=== PATIENT | female | born 1940 | race Caucasian/White ===

== ENCOUNTER → 2016-12-20 | Outpatient (CLI) | payer OTHER, BC ==
[~2016-12-20] MED LIST: ALPH50CA2 PO; AMOX875T PO; ASCO10003 PO; ASPI81TA28 PO; B-CO1CAP17 PO; CHOL1000 PO; COEN1CAP17 PO; CRDCD180 PO; ELQ25 PO; HORMONES; MAGN30TA4 PO; OMEG10007 PO; POTASSIUM OTC PO; PRMVC PV; THY/60 PO; THY30 PO; VITACAP38 PO; VITAMINS; VITATAB19 PO
== END | disposition home or self-care (01) ==
LOC: C.LAB1850 09:41
PROVIDERS: ATTEND Family Medicine
DX: E03.9 Hypothyroidism, unspecified (principal)

== ENCOUNTER 2017-01-14 08:21 | Emergency (ER) | payer OTHER, BC ==
[~2017-01-14] VITALS: Ht 162.6 cm; Wt 79.3 kg
[~2017-01-14 08:21] MED LIST changes: -ALPH50CA2 PO; -AMOX875T PO; -ASCO10003 PO; -ASPI81TA28 PO; -B-CO1CAP17 PO; -CHOL1000 PO; -COEN1CAP17 PO; -CRDCD180 PO; -ELQ25 PO; -MAGN30TA4 PO; -OMEG10007 PO; -POTASSIUM OTC PO; -PRMVC PV; -THY30 PO; -VITACAP38 PO; -VITATAB19 PO
[2017-01-14 08:31] VITALS: TEMP 37; Ht 162.6 cm; Wt 79.3 kg
[2017-01-14] MEDS ORDERED: PRMVC PV (08:45)
--- NOTE | 2017-01-14 09:16 | EMERGENCY ROOM VISIT NOTE ---
History First contact with patient: 08:47 Chief Complaint: EYE ASSESSMENT Stated Complaint: SWELLING/REDNESS/WEEPING YELLOW SPOT TO EYE History of Present Illness The patient is a 76 year old female who presents to the Emergency Room with complaints of left eye pain. The patient states that she noticed a yellow spot in the left lower eyelid. She states it has been draining. She reports very minimal blurry vision due to the swelling. She reports some swelling beneath the left eye. She denies any fevers. She denies any falls or injuries. She denies any recent illness. She rates her discomfort a 2/10. Review of Systems A 10 system review of systems was completed with positives and pertinent negatives listed in the HPI. Past Medical/Surgical History Medical Problems: (1) Hypothyroid Social History Smoking Status: Never Smoker Housing Status: lives with family Current/Historical Medications Scheduled Amoxicillin & Pot Clavulanate (Augmentin 875-125 mg), 1 TAB PO BID Estrogens, Conjugated (Premarin), 1 APPLN PV DAILY Thyroid (Spangler Thyroid), 60 MG PO DAILY Allergies Coded Allergies: Cephalosporins (Verified Allergy, Unknown, UNKNOWN, 06/25/12) Sulfa Drugs (Verified Allergy, Unknown, 01/27/16) Physical Exam Vital Signs Date Time Temp Pulse Resp B/P Pulse Ox O2 Delivery O2 Flow Rate FiO2 01/14/17 10:42 63 16 180/67 96 01/14/17 08:31 37.0 75 18 184/92 95 Room Air Right Eye Acuity: 20/30 - no correction Left Eye Acuity: 20/30 - no correction Physical Exam VITALS: Vitals are noted on the nurse's note and reviewed by myself. Vital signs stable. GENERAL: This is a 76-year-old female, in no acute distress, nondiaphoretic, well-developed well-nourished. SKIN: The skin was without rashes, erythema, edema, or bruising. There is no tenting of the skin. Capillary reflex less than 2 seconds. HEAD: Normocephalic atraumatic. EARS: External ears are normal in appearance EYES: Pupils equal round and reactive to light and accommodation. There appears to be a draining stye left lower eyelid. There is mild injection to the left conjunctiva. There is very minimal swelling beneath the left eye. NOSE: Patent, turbinates without inflammation or discharge. No sinus tenderness. MOUTH: Mucous membranes moist. Tonsils are not enlarged. Pharynx without erythema or exudate. Uvula midline. Airway patent. Tongue does not deviate. NECK: Supple without nuchal rigidity. No JVD. HEART: Regular rate and rhythm without murmurs gallops or rubs. LUNGS: Clear to auscultation bilaterally without wheezes, rales or rhonchi. No retractions or accessory muscle use. MUSCULOSKELETAL: No muscle atrophy, erythema, or edema noted. Full range of motion in all extremities. Normal gait. Strength 5/5 throughout. NEURO: Patient was alert and oriented to person place and time. No focal neurological deficits. Medical Decision & Procedures Medications Administered Medications (Trade) Dose Ordered Sig/Nate Route Start Time Stop Time Status Last Admin Dose Admin Erythromycin (Erythromycin Oph Oint) 1 appln TID STAT OP 01/14/17 09:34 01/14/17 09:35 DC 01/14/17 09:34 1 APPLN Procedure A slit lamp examination was performed. There is no hyphema or hypopyon of the left eye. There is mild injection of the conjunctivae. There appears to be a draining stye to the lower eyelid. There is no fluorescein uptake with UV light. Intraocular pressures are normal by auto tonometer. ED Course The patient was seen and examined. Previous visits were reviewed. The patient does not have a fever. The patient appears to have a draining stye to the left lower eyelid. There is very minimal surrounding cellulitis. The patient was placed on erythromycin ointment and Augmentin. She should follow up with the emergency department or ophthalmology in 24-48 hours for a recheck. She should return sooner with any worsening swelling, redness, fever. The patient was also seen and examined by who agrees with the assessment and treatment plan. Medical Decision The differential diagnosis includes preseptal cellulitis, orbital cellulitis, stye, corneal foreign body, glaucoma, sinusitis, among others Impression Primary Impression: Stye Additional Impression: Cellulitis Departure Information Dispostion Home / Self-Care Condition GOOD Prescriptions Amoxicillin & Pot Clavulanate (Augmentin 875-125 mg) 1 Tab Tab 1 TAB PO BID for 7 Days, #14 TAB Prov: Jane Javed PA-C 01/14/17 Referrals No Doctor, Assigned (PCP) Lyndon Quevedo M.D. Patient Instructions ED Dexterolum, [facility] Additional Instructions Erythromycin ointment 1/4 cm ribbon to the lower eyelid every 8 hours for 5-7 days Augmentin every 12 hours for 7 days Return with any worsening redness, swelling, warmth, fever, decreased vision Otherwise, follow up with the eye doctor if symptoms persist Problem Qualifiers Primary Impression: Stye Laterality: left Eyelid: lower Qualified Codes: H00.015 - Hordeolum externum left lower eyelid Additional Impression: Cellulitis Site of cellulitis: face Qualified Codes: L03.211 - Cellulitis of face
[2017-01-14] MEDS ORDERED: ERYTHROMYCIN OP OINT 5 MG/GM 3.5 GM TUBE OP STA (09:34)
[2017-01-14] MEDS ORDERED: AMOX875T PO (09:59)
[2017-01-14 10:42] VITALS: BP 180/67; PULSE 63; O2SAT 96
--- NOTE | 2017-01-14 15:51 | EMERGENCY ROOM VISIT NOTE ---
ED Visit Note First contact with patient: 08:47 I have personally seen and evaluated the patient with the PA. I agree with the diagnosis and management decisions and have been personally involved in the case. Please see Yuliana Javed PA-C's notes for further details of the history, physical and visit.
[2017-07-06] MEDS ORDERED: THY30 PO (08:45)
[2017-07-08] MEDS ORDERED: CRDCD180 PO (12:00)
[2017-07-08] MEDS ORDERED: ELQ25 PO (12:00)
== END 2017-01-14 10:44 | disposition home or self-care (01) ==
LOC: C.EDB 08:23 → C.EDA 10:44
DX: H00.015 Hordeolum externum left lower eyelid (principal); L03.211 Cellulitis of face; E03.9 Hypothyroidism, unspecified; Z79.899 Other long term (current) drug therapy

== ENCOUNTER → 2017-02-01 | Outpatient (CLI) | payer OTHER, BC ==
[~2017-02-01] MED LIST changes: +ALPH50CA2 PO; +ASCO10003 PO; +ASPI81TA28 PO; +B-CO1CAP17 PO; +CHOL1000 PO; +COEN1CAP17 PO; +CRDCD180 PO; +ELQ25 PO; -HORMONES; +MAGN30TA4 PO; +OMEG10007 PO; +POTASSIUM OTC PO; +PRMVC PV; -THY/60 PO; +THY30 PO; +VITACAP38 PO; -VITAMINS; +VITATAB19 PO
== END | disposition home or self-care (01) ==
LOC: C.LABSPEC 15:51
PROVIDERS: ATTEND Obstetrics & Gynecology
DX: Z87.42 Personal history of other diseases of the female genital tract (principal)

== ENCOUNTER → 2017-02-13 | Outpatient (CLI) | payer OTHER, BC | END | disposition home or self-care (01) | LOC: C.LAB1850 13:01 | PROVIDERS: ATTEND Obstetrics & Gynecology | DX: R14.0 Abdominal distension (gaseous) (principal) ==

== ENCOUNTER → 2017-05-14 | Outpatient (CLI) | payer OTHER, BC | END | disposition home or self-care (01) | LOC: C.RDSM 10:38 | PROVIDERS: ATTEND Family Medicine Sports Medicine | DX: M65.30 Trigger finger, unspecified finger (principal) ==

== ENCOUNTER → 2017-05-18 | Outpatient (CLI) | payer OTHER, BC ==
--- NOTE | 2017-05-18 15:30 | MAMMOGRAPHY REPORT ---
BILATERAL DIGITAL SCREENING MAMMOGRAM WITH CAD: 05/18/2017 CLINICAL HISTORY: Routine screening. Patient has no complaints. TECHNIQUE: Bilateral CC and MLO views were obtained. Current study was also evaluated with a Compute r Aided Detection (CAD) system. COMPARISON: Comparison is made to exams dated: 05/10/2016 mammogram, 05/04/2015 mammogram, 04/08/2014 ma mmogram, 04/01/2013 mammogram, 03/22/2012 mammogram, and 03/10/2011 mammogram - [facility] ter. BREAST COMPOSITION: The tissue of both breasts is almost entirely fatty. FINDINGS: There is stable nodularity in the anterior right breast on the MLO view, and in the anterio r retroareolar left breast on the CC view. A few benign rim calcifications in the breasts. No suspi cious mass, architectural distortion or cluster of suspicious microcalcifications is seen. IMPRESSION: ACR BI-RADS CATEGORY 1: NEGATIVE There is no mammographic evidence of malignancy. A 1 year screening mammogram is recommended. The pa tient will receive written notification of the results. Approximately 10% of breast cancers are not detected with mammography. A negative mammographic report should not delay biopsy if a clinically suggestive mass is present. Malika Steven M.D. ay/:05/18/2017 13:35:03 Wing Commander: Josette BENNETT(R)(M), [facility] letter sent: Normal 1/2 BI-RADS Code: ACR BI-RADS Category 1: Negative
== END | disposition home or self-care (01) ==
LOC: C.MAMM 13:10
PROVIDERS: ATTEND Family Medicine
DX: Z12.31 Encounter for screening mammogram for malignant neoplasm of breast (principal)

== ENCOUNTER → 2017-05-21 | Outpatient (CLI) | payer OTHER, BC ==
[2017-05-21 16:35] LABS: HEMATOCRIT 35.9 % (37-47)
--- NOTE | 2017-05-25 10:10 | CODING QUERY MEDICAL NECESSITY ---
CQSUPPORTING DIAGNOSIS NEEDED A supporting diagnosis is required for the test/procedure performed on this patient in order for us to be reimbursed by the patient's insurance. Please provide a supporting diagnosis for the following test/procedure listed below next to the test name along with your signature. *If there is no additional diagnosis for this patient that would support the following test/procedure please document that below next to the test/procedure. Test(s)/Procedure(s) that require a supporting diagnosis: DOS 05/21/17 BLOOD COUNTS Provider Signature: Date: Thank you Nelia Darden [employer]han[employer] Information Management Once completed, please kindly fax back to [phone] For questions please call [phone]
== END | disposition home or self-care (01) ==
LOC: C.LAB1850 15:04
PROVIDERS: ATTEND Obstetrics & Gynecology
DX: N81.10 Cystocele, unspecified (principal); R14.0 Abdominal distension (gaseous)

== ENCOUNTER 2017-07-06 16:09 | Observation (INO) | payer OTHER, BC ==
[~2017-07-06] VITALS: Ht 160 cm; Wt 79.8 kg
[~2017-07-06 16:09] MED LIST changes: -ALPH50CA2 PO; -ASCO10003 PO; -ASPI81TA28 PO; -B-CO1CAP17 PO; -CHOL1000 PO; -COEN1CAP17 PO; -CRDCD180 PO; -ELQ25 PO; -MAGN30TA4 PO; -OMEG10007 PO; -POTASSIUM OTC PO; -VITACAP38 PO; -VITATAB19 PO
[2017-07-06] MEDS ORDERED: DILTIAZEM HCL 5 MG/ML 5 ML VIAL IV STA (16:23)
--- NOTE | 2017-07-06 16:26 | EMERGENCY ROOM VISIT NOTE ---
History Report prepared by Huy: Marcia Ascencio Under the Supervision of: Dr. Yon oRuse M.D. First contact with patient: 16:13 Chief Complaint: CARDIAC ASSESSMENT Stated Complaint: AFIB History of Present Illness The patient is a 77 year old female who presents to the Emergency Room by EMS for a cardiac assessment. The patient was at [facility] when she had an episode of dizziness just prior to arrival. Last night, she states she felt "off". She was nauseous and clammy during the episode. The patient denies any fever, cough, chills, urinary symptoms. The patient is not on oxygen normally. She has a history of a cholecystectomy, DVT, PE, and Grave's disease. The patient takes a baby Aspirin daily. Source of History: patient Onset: just prior to arrival Quality: other (dizziness) Timing: other (episode) Associated Symptoms: + nausea, No fevers, No chills, No cough, No urinary symptoms Note: Pt notes she was clammy during the episode. Review of Systems See HPI for pertinent positives and negatives. A total of ten systems were reviewed and were otherwise negative. Past Medical & Surgical Medical Problems: (1) Hypothyroid Family History no pertinent family history stated. Social History Smoking Status: Never Smoker Housing Status: lives with family Current/Historical Medications Scheduled Alpha-Lipoic Acid (Thioctic Ac (Alpha Lipoic Acid), 1 CAP PO DAILY Ascorbic Acid (Vitamin C), 2,000 MG PO DAILY Aspirin (Aspirin Ec), 81 MG PO DAILY Cholecalciferol (Vitamin D3), 3 TAB PO DAILY Coenzyme Q10 (Ubidecarenone) (Co Q 10), 100 MG PO BID Estrogens, Conjugated (Premarin), 1 APPLN PV DAILY Fish Oil (Oolitic-3), 1 CAP PO DAILY Magnesium Gluconate (Magnesium), 1 TAB PO DAILY Thyroid (Hendley Thyroid), 60 MG PO DAILY Vitamin A-Beta Carotene (Vitamin A), 1 TAB PO DAILY Vitamin B Cmplx/Vitc/Folic Ac (Nephrocaps), 1 CAP PO DAILY Vitamin E (E-1000), 1 CAP PO DAILY [Potassium Otc], 1 TAB PO DAILY Allergies Coded Allergies: Cephalosporins (Verified Allergy, Unknown, UNKNOWN, 06/25/12) Sulfa Drugs (Verified Allergy, Unknown, 01/27/16) Physical Exam Vital Signs Date Time Temp Pulse Resp B/P (MAP) Pulse Ox O2 Delivery O2 Flow Rate FiO2 07/06/17 19:59 86 18 131/64 94 07/06/17 19:00 86 20 149/70 94 Room Air 07/06/17 17:21 88 07/06/17 17:03 82 18 132/51 94 Room Air 07/06/17 16:25 110 07/06/17 16:17 93 Room Air 07/06/17 16:13 94 Room Air 07/06/17 16:13 109 18 94 Room Air Physical Exam GENERAL: Awake, alert, fatigued-appearing, in no distress HENT: Normocephalic, atraumatic. Oropharynx unremarkable. Dry MM. EYES: Normal conjunctiva. Sclera non-icteric. NECK: Supple. No nuchal rigidity. FROM. No JVD. RESPIRATORY: Clear to auscultation. Dyspnic. CARDIAC:IR IR. Extremities warm and well perfused. Pulses equal. ABDOMEN: Soft, non-distended. No tenderness to palpation. No rebound or guarding. No masses. RECTAL: Deferred. MUSCULOSKELETAL: Chest examination reveals no tenderness. The back is symmetrical on inspection without obvious abnormality. There is no CVA tenderness to palpation. No joint edema. LOWER EXTREMITIES: Calves are equal size bilaterally and non-tender. No discoloration. 1+ bilateral lower extremity edema, pulses equal. NEURO: Normal sensorium. No sensory or motor deficits noted. SKIN: No rash or jaundice noted. Medical Decision & Procedures ER Provider Diagnostic Interpretation: Radiology results as stated below per my review and radiologist interpretation: CHEST ONE VIEW PORTABLE FINDINGS: The bones soft tissues and hemidiaphragms are normal. The cardiomediastinal silhouette is normal. The lungs are clear. The pulmonary vasculature is normal. IMPRESSION: Negative chest. The above report was generated using voice recognition software. It may contain grammatical, syntax or spelling errors. Electronically signed by: Demetrio Ghosh M.D. (CHEST FOR PE) ANGIO WITH FINDINGS: There is a normal caliber thoracic aorta with no evidence for dissection. There is no evidence for pulmonary embolus. No pleural effusions. No pneumothorax. The liver and spleen are unremarkable. No mediastinal or hilar lymphadenopathy. The central airways are patent. The lungs are clear. IMPRESSION: No evidence for pulmonary embolus. The lungs are clear The above report was generated using voice recognition software. It may contain grammatical, syntax or spelling errors. Electronically signed by: Demetrio Ghosh M.D. Laboratory Results 07/06/17 16:20 Red Blood Count 4.78, Mean Corpuscular Volume 86.8, Mean Corpuscular Hemoglobin 28.5, Mean Corpuscular Hemoglobin Concent 32.8, Mean Platelet Volume 10.8, Neutrophils (%) (Auto) 62.4, Lymphocytes (%) (Auto) 27.4, Monocytes (%) (Auto) 7.6, Eosinophils (%) (Auto) 2.0, Basophils (%) (Auto) 0.2, Neutrophils # (Auto) 6.28, Lymphocytes # (Auto) 2.76, Monocytes # (Auto) 0.77, Eosinophils # (Auto) 0.20, Basophils # (Auto) 0.02 07/06/17 16:20 Test 07/06/17 16:20 White Blood Count 10.07 K/uL (4.8-10.8) Red Blood Count 4.78 M/uL (4.2-5.4) Hemoglobin 13.6 g/dL (12.0-16.0) Hematocrit 41.5 % (37-47) Mean Corpuscular Volume 86.8 fL (80-100) Mean Corpuscular Hemoglobin 28.5 pg (25-34) Mean Corpuscular Hemoglobin Concent 32.8 g/dl (32-36) Platelet Count 296 K/uL (130-400) Mean Platelet Volume 10.8 fL (7.4-10.4) Neutrophils (%) (Auto) 62.4 % Lymphocytes (%) (Auto) 27.4 % Monocytes (%) (Auto) 7.6 % Eosinophils (%) (Auto) 2.0 % Basophils (%) (Auto) 0.2 % Neutrophils # (Auto) 6.28 K/uL (1.4-6.5) Lymphocytes # (Auto) 2.76 K/uL (1.2-3.4) Monocytes # (Auto) 0.77 K/uL (0.11-0.59) Eosinophils # (Auto) 0.20 K/uL (0-0.5) Basophils # (Auto) 0.02 K/uL (0-0.2) RDW Standard Deviation 51.6 fL (36.4-46.3) RDW Coefficient of Variation 16.1 % (11.5-14.5) Immature Granulocyte % (Auto) 0.4 % Immature Granulocyte # (Auto) 0.04 K/uL (0.00-0.02) Anion Gap 10.0 mmol/L (3-11) Est Creatinine Clear Calc Drug Dose 52.5 ml/min Estimated GFR () 74.0 Estimated GFR (Non- 63.8 BUN/Creatinine Ratio 21.8 (10-20) Calcium Level 9.8 mg/dl (8.5-10.1) Magnesium Level 1.9 mg/dl (1.8-2.4) Total Bilirubin 0.3 mg/dl (0.2-1) Direct Bilirubin 0.1 mg/dl (0-0.2) Aspartate Amino Transf (AST/SGOT) 24 U/L (15-37) Alanine Aminotransferase (ALT/SGPT) 24 U/L (12-78) Alkaline Phosphatase 68 U/L (45-117) Troponin I 0.335 ng/ml (0-0.045) Pro-B-Type Natriuretic Peptide 2321 pg/ml (0-1800) Total Protein 7.4 gm/dl (6.4-8.2) Albumin 3.3 gm/dl (3.4-5.0) Lipase 145 U/L (73-393) Thyroid Stimulating Hormone (TSH) 0.067 uIu/ml (0.300-4.500) Free Thyroxine 1.03 ng/dl (0.80-1.60) Laboratory results reviewed by me Medications Administered Medications (Trade) Dose Ordered Sig/Nate Route Start Time Stop Time Status Last Admin Dose Admin Aspirin (Aspirin Chew) 324 mg NOW STAT PO 07/06/17 18:43 07/06/17 18:44 DC 07/06/17 18:49 324 MG ECG Indication: other (dizziness) Rate (beats per minute): 120 Rhythm: atrial fibrillation Findings: no acute ischemic change, left axis deviation, other (RVR) Comparison ECG Date: Repeat EKG: Normal sinus, 79bpm, left axis deviation, no ischemia ED Course 1614: The patient was evaluated in room B10. A complete history and physical exam was performed. 1623: Cardizem Inj 15 mg IV. 1724: I reevaluated the patient feeling better. Bedside echocardiogram, no pericardial effusion, looked at LV and RV function. RV function slightly dilated. 174: Ioversol 100 ml IV. 175: Discussed the patient's case with Dr. Eileen DOMÍNGUEZ. The patient will be evaluated for further treatment and disposition. 184: Aspirin 324 mg PO. 1850: Upon reexamination, the patient was resting. I discussed the test results and treatment plan with her. The patient will be evaluated for further management. Medical Decision I reviewed the patient's past medical history, medications, and the nursing notes as described above. Differential diagnosis: The patient is a 77-year-old woman with a past medical history of hypertension and remote PE who presents emergency Department with acute onset shortness of breath lightheadedness, diaphoresis found to be in A. fib RVR to 140s by EMS and was given 10 mg of diltiazem and routes history of present illness. On arrival the patient's rhythm is atrial fibrillation with heart rate ranging mostly in the 110-120s but then increasing to 140s. Patient was ordered for another 15 mg of diltiazem over in the interim the patient converted to sinus rhythm in the 80s so Dilt was held. Otherwise workup notable for elevated BNP 2000s and troponin 0.33 overall the setting of RVR. Repeat EKG normal sinus without any signs of acute ischemia. Thus we'll continue to trend troponin but I believe unlikely to be secondary to ACS. However considering the patient's hypoxia and new A. fib, as well as a question of mildly dilated RV on bedside echo CT PE was done was negative for PE. Case was discussed with medicine hospitalist who will admit the patient for management. Medication Reconcilliation Current Medication List: was personally reviewed by me Blood Pressure Screening Patient's blood pressure: Normal blood pressure Consults Time Called: 1749 Consulting Physician: Dr. Acharya Returned Call: [phone] Discussed the patient's case. The patient will be evaluated for further treatment and disposition. Impression Primary Impression: New onset atrial fibrillation Scribe Attestation The scribe's documentation has been prepared under my direction and personally reviewed by me in its entirety. I confirm that the note above accurately reflects all work, treatment, procedures, and medical decision making performed by me. Departure Information Dispostion Being Evaluated By Hospitalist Referrals No Doctor, Assigned (PCP) Patient Instructions [facility]
[2017-07-06 16:48] LABS: BASO % 0.2 %; BASO ABS # 0.02 K/uL (0-0.2); COMPLETE YES; HEMATOCRIT 41.5 % (37-47); IG% 0.4 %; LYMPH % 27.4 %; LYMPH ABS # 2.76 K/uL (1.2-3.4); MEAN CELL VOLUME 86.8 fL (80-100); MEAN CORPUSCULAR HEMOGLOBIN 28.5 pg (25-34); MEAN CORPUSCULAR HGB CONC 32.8 g/dl (32-36); MEAN PLATELET VOLUME 10.8 fL (7.4-10.4); MONO % 7.6 %; NEUT % 62.4 %; PLATELET COUNT 296 K/uL (130-400); RED BLOOD COUNT 4.78 M/uL (4.2-5.4); WHITE BLOOD COUNT 10.07 K/uL (4.8-10.8)
[2017-07-06 17:03] LABS: BUN/CREATININE RATIO 21.8 (10-20); CALCIUM 9.8 mg/dl (8.5-10.1); CREATININE 0.87 mg/dl (0.60-1.20); MAGNESIUM 1.9 mg/dl (1.8-2.4); POTASSIUM 3.5 mmol/L (3.5-5.1)
--- NOTE | 2017-07-06 17:14 | DIAGNOSTIC IMAGING REPORT ---
CHEST ONE VIEW PORTABLE CLINICAL HISTORY: CHEST PAIN dyspnea COMPARISON STUDY: 02/25/2016 FINDINGS: The bones soft tissues and hemidiaphragms are normal. The cardiomediastinal silhouette is normal. The lungs are clear. The pulmonary vasculature is normal. IMPRESSION: Negative chest. The above report was generated using voice recognition software. It may contain grammatical, syntax or spelling errors. Electronically signed by: Demetrio Ghosh M.D. 07/06/2017 5:12 PM Dictated Date/Time: 07/06/2017 5:12 PM
[2017-07-06 17:16] LABS: THYROID STIMULATING HORMONE 0.067 uIu/ml (0.300-4.500)
[2017-07-06] MEDS ORDERED: OPTIRAY 320 IV PRN (17:45)
--- NOTE | 2017-07-06 18:19 | DIAGNOSTIC IMAGING REPORT ---
(CHEST FOR PE) ANGIO WITH CT DOSE: 279.97 mGy.cm HISTORY: Chest pain dyspnea TECHNIQUE: Multiaxial CT images of the chest were performed following the intravenous administration of contrast to evaluate the pulmonary arteries. Maximal intensity projection images were also obtained. A dose lowering technique was utilized adhering to the principles of ALARA. COMPARISON STUDY: 11/11/2009 FINDINGS: There is a normal caliber thoracic aorta with no evidence for dissection. There is no evidence for pulmonary embolus. No pleural effusions. No pneumothorax. The liver and spleen are unremarkable. No mediastinal or hilar lymphadenopathy. The central airways are patent. The lungs are clear. IMPRESSION: No evidence for pulmonary embolus. The lungs are clear The above report was generated using voice recognition software. It may contain grammatical, syntax or spelling errors. Electronically signed by: Demetrio Ghosh M.D. 07/06/2017 6:03 PM Dictated Date/Time: 07/06/2017 6:01 PM
[2017-07-06] MEDS ORDERED: ASPIRIN 81 MG CHEW PO STA (18:43)
[2017-07-06] MEDS ORDERED: METOPROLOL TARTRATE 1 MG/ML VIAL IV PRN (19:15)
[2017-07-06] MEDS ORDERED: ALUMINUM/MAGNESIUM/SIMETH (MAALOX MAX) 30 ML UDC PO PRN (19:15)
[2017-07-06] MEDS ORDERED: ONDANSETRON INJ 2 MG/ML 2 ML VIAL IV PRN (19:15)
[2017-07-06] MEDS ORDERED: POLYETHYLENE (MIRALAX) 17 GM PACK PO PRN (19:15)
[2017-07-06] MEDS ORDERED: NITROGLYCERIN 0.4 MG SL PER TAB CHARGE SL PRN (19:15)
[2017-07-06] MEDS ORDERED: ACETAMINOPHEN 325 MG TAB PO PRN (19:15)
[2017-07-06] MEDS ORDERED: MAGNESIUM HYDROXIDE SUSP 30 ML UDC PO PRN (19:15)
[2017-07-06] MEDS ORDERED: VITATAB19 PO (19:20)
[2017-07-06] MEDS ORDERED: ASPI81TA28 PO (19:20)
[2017-07-06] MEDS ORDERED: CHOL1000 PO (19:20)
[2017-07-06] MEDS ORDERED: POTASSIUM OTC PO (19:20)
[2017-07-06] MEDS ORDERED: ASCO10003 PO (19:20)
[2017-07-06] MEDS ORDERED: OMEG10007 PO (19:20)
[2017-07-06] MEDS ORDERED: VITACAP38 PO (19:20)
[2017-07-06] MEDS ORDERED: MAGN30TA4 PO (19:20)
[2017-07-06] MEDS ORDERED: B-CO1CAP17 PO (19:20)
[2017-07-06] MEDS ORDERED: COEN1CAP17 PO (19:22)
[2017-07-06] MEDS ORDERED: ALPH50CA2 PO (19:22)
--- NOTE | 2017-07-06 19:29 | History and Physical ---
History & Physical Date & Time of Service: Jul 06, 2017 at 19:11 Chief Complaint: AFIB Primary Care Physician: No Doctor, Assigned History of Present Illness Source: patient, clinic records, hospital records Patient is a pleasant 77 y/o female, with PMHx of Grave's disease, h/o DVT and bilateral PEs, who presented to the ED because of lightheadedness/dizziness and weakness that started this afternoon. Per patient, yesterday she felt as though her heart was racing, but she didn't think much of it. Today, she went with her to town; She ate lunch at the [employer] and was on her way to [facility]. When they got there, she tried to get out of the car but was feeling dizziness. She told her she would wait in the car while he went into [employer]. When he came back out, she still wasn't feeling well and went to acute care. Upon arrival at acute care, she notes she was nauseous and clammy. At acute care she was told she was in a.fib and instructed to come to the ED. She denies h/o a.fib. Currently, she states she is feeling well, but complaining of L shoulder region discomfit. She started to notice the back discomfort after she arrived to ED. She does have a history of DVT and bilateral PEs. +chronic bilateral lower extremity edema, which she manages with TEDs and elevation- swelling at baseline. Patient denies any fever, chills, sweats, vision changes, CP, SOB, wheezing, cough, abdominal pain, vomiting, diarrhea, urinary symptoms, melena, numbness/tingling, joint pain, anxiety/depression, active bleeding, or new skin discoloration/changes. Past Medical/Surgical History Past Medical History: DVT bilateral PEs Grave's disease Past Surgical History: appendectomy thyroidectomy cholecystectomy Social History Smoking Status: Never Smoker Alcohol Use: none Marital Status: Housing status: lives with family Immunizations History of Influenza Vaccine: No History of Tetanus Vaccine?: No History of Pneumococcal: No History of Hepatitis B Vaccine: No Multi-Drug Resistant Organisms History of MDRO: No Allergies Coded Allergies: Cephalosporins (Verified Allergy, Unknown, UNKNOWN, 06/25/12) Sulfa Drugs (Verified Allergy, Unknown, 01/27/16) Home Medications Scheduled Alpha-Lipoic Acid (Thioctic Ac (Alpha Lipoic Acid), 1 CAP PO DAILY Ascorbic Acid (Vitamin C), 2,000 MG PO DAILY Aspirin (Aspirin Ec), 81 MG PO DAILY Cholecalciferol (Vitamin D3), 3 TAB PO DAILY Coenzyme Q10 (Ubidecarenone) (Co Q 10), 100 MG PO BID Estrogens, Conjugated (Premarin), 1 APPLN PV DAILY Fish Oil ([place]-3), 1 CAP PO DAILY Magnesium Gluconate (Magnesium), 1 TAB PO DAILY Thyroid ([place] Thyroid), 60 MG PO DAILY Vitamin A-Beta Carotene (Vitamin A), 1 TAB PO DAILY Vitamin B Cmplx/Vitc/Folic Ac (Nephrocaps), 1 CAP PO DAILY Vitamin E (E-1000), 1 CAP PO DAILY [Potassium Otc], 1 TAB PO DAILY Physical Exam Vital Signs Date Time Temp Pulse Resp B/P (MAP) Pulse Ox O2 Delivery O2 Flow Rate FiO2 07/06/17 17:21 88 07/06/17 17:03 82 18 132/51 94 Room Air 07/06/17 16:25 110 07/06/17 16:17 93 Room Air 07/06/17 16:13 94 Room Air 07/06/17 16:13 109 18 94 Room Air General Appearance: no apparent distress Head: normocephalic, atraumatic Eyes: normal inspection, PERRL ENT: hearing grossly normal Neck: supple Respiratory/Chest: lungs clear, no respiratory distress, no accessory muscle use Cardiovascular: regular rate, rhythm Abdomen/GI: normal bowel sounds, non tender, soft Back: normal inspection, + pertinent finding (ttp of left spinal border at shoulder region ) Extremities/Musculoskelatal: + swelling (+non-pitting edema of bilateral lower extremities ), + pertinent finding (TEDs on ) Neurologic/Psych: alert, normal mood/affect, oriented x 3 Skin: normal color, warm/dry, no rash Diagnostics Laboratory Results Results Past 24 Hours Test 07/06/17 16:20 Range/Units White Blood Count 10.07 4.8-10.8 K/uL Red Blood Count 4.78 4.2-5.4 M/uL Hemoglobin 13.6 12.0-16.0 g/dL Hematocrit 41.5 37-47 % Mean Corpuscular Volume 86.8 80-100 fL Mean Corpuscular Hemoglobin 28.5 25-34 pg Mean Corpuscular Hemoglobin Concent 32.8 32-36 g/dl Platelet Count 296 130-400 K/uL Mean Platelet Volume 10.8 7.4-10.4 fL Neutrophils (%) (Auto) 62.4 % Lymphocytes (%) (Auto) 27.4 % Monocytes (%) (Auto) 7.6 % Eosinophils (%) (Auto) 2.0 % Basophils (%) (Auto) 0.2 % Neutrophils # (Auto) 6.28 1.4-6.5 K/uL Lymphocytes # (Auto) 2.76 1.2-3.4 K/uL Monocytes # (Auto) 0.77 0.11-0.59 K/uL Eosinophils # (Auto) 0.20 0-0.5 K/uL Basophils # (Auto) 0.02 0-0.2 K/uL RDW Standard Deviation 51.6 36.4-46.3 fL RDW Coefficient of Variation 16.1 11.5-14.5 % Immature Granulocyte % (Auto) 0.4 % Immature Granulocyte # (Auto) 0.04 0.00-0.02 K/uL Sodium Level 141 136-145 mmol/L Potassium Level 3.5 3.5-5.1 mmol/L Chloride Level 109 98-107 mmol/L Carbon Dioxide Level 22 21-32 mmol/L Anion Gap 10.0 3-11 mmol/L Blood Urea Nitrogen 19 7-18 mg/dl Creatinine 0.87 0.60-1.20 mg/dl Est Creatinine Clear Calc Drug Dose 52.5 ml/min Estimated GFR () 74.0 Estimated GFR (Non- 63.8 BUN/Creatinine Ratio 21.8 10-20 Random Glucose 128 70-99 mg/dl Calcium Level 9.8 8.5-10.1 mg/dl Magnesium Level 1.9 1.8-2.4 mg/dl Total Bilirubin 0.3 0.2-1 mg/dl Direct Bilirubin 0.1 0-0.2 mg/dl Aspartate Amino Transf (AST/SGOT) 24 15-37 U/L Alanine Aminotransferase (ALT/SGPT) 24 12-78 U/L Alkaline Phosphatase 68 45-117 U/L Troponin I 0.335 0-0.045 ng/ml Pro-B-Type Natriuretic Peptide 2321 0-1800 pg/ml Total Protein 7.4 6.4-8.2 gm/dl Albumin 3.3 3.4-5.0 gm/dl Lipase 145 73-393 U/L Thyroid Stimulating Hormone (TSH) 0.067 0.300-4.500 uIu/ml Free Thyroxine 1.03 0.80-1.60 ng/dl Diagnostic Radiology CHEST ONE VIEW PORTABLE CLINICAL HISTORY: CHEST PAIN dyspnea COMPARISON STUDY: 02/25/2016 FINDINGS: The bones soft tissues and hemidiaphragms are normal. The cardiomediastinal silhouette is normal. The lungs are clear. The pulmonary vasculature is normal. IMPRESSION: Negative chest. The above report was generated using voice recognition software. It may contain grammatical, syntax or spelling errors. Electronically signed by: Demetrio Ghosh M.D. 07/06/2017 5:12 PM Dictated Date/Time: 07/06/2017 5:12 PM The status of this report is Signed. Draft = Not yet reviewed or approved by Radiologist. Signed = Reviewed and approved by Radiologist. (CHEST FOR PE) ANGIO WITH CT DOSE: 279.97 mGy.cm HISTORY: Chest pain dyspnea TECHNIQUE: Multiaxial CT images of the chest were performed following the intravenous administration of contrast to evaluate the pulmonary arteries. Maximal intensity projection images were also obtained. A dose lowering technique was utilized adhering to the principles of ALARA. COMPARISON STUDY: 11/11/2009 FINDINGS: There is a normal caliber thoracic aorta with no evidence for dissection. There is no evidence for pulmonary embolus. No pleural effusions. No pneumothorax. The liver and spleen are unremarkable. No mediastinal or hilar lymphadenopathy. The central airways are patent. The lungs are clear. IMPRESSION: No evidence for pulmonary embolus. The lungs are clear The above report was generated using voice recognition software. It may contain grammatical, syntax or spelling errors. Electronically signed by: Demetrio Ghosh M.D. 07/06/2017 6:03 PM Dictated Date/Time: 07/06/2017 6:01 PM The status of this report is Signed. Draft = Not yet reviewed or approved by Radiologist. Signed = Reviewed and approved by Radiologist. EKG SADIQ LEHMAN ID:[id number] 06-JUL-2017 16:19:17 [facility] atrial fibrillation with rapid ventricular response Moderate voltage criteria for LVH, may be normal variant poor R-wave progression in precordial leads Cannot rule out Inferior infarct (cited on or before 11-NOV-2009) Abnormal ECG When compared with ECG of 11-NOV-2009 17:49, atrial fibrillation has replaced sinus rhythm Vent. rate has increased BY 56 BPM Nonspecific T wave abnormality now evident in Lateral leads Confirmed by Claus Bone ([id number]) on 07/06/2017 5:37:24 PM 25mm/s 10mm/mV 150Hz 8.0 SP2 12SL 241 BENEDICTO: 3 Referred by: Confirmed By: Claus Bone Vent. rate 121 BPM NM interval * ms QRS duration 94 ms QT/QTc 356/505 ms P-R-T axes * - 16 1940 (77 yr) Female Room: Loc:13 Manager Customs:Elizabeth Doll ind: Impression Assessment and Plan Patient is a pleasant 77 y/o female, with PMHx of Grave's disease, h/o DVT and bilateral PEs, who presented to the ED because of lightheadedness/dizziness and weakness that started this afternoon. New onset a.fib, treated w/ IV Cardizem 15 mg in ED and currently NSR: - Admit to tele for cardiac monitoring - Trend cardiac enzymes- initial trop 0.335 - EKG QAM and PRN CP - IV Metoprolol 5 mg q6 hrs PRN HR >120 - Continue ASA 81 mg daily - Consult cardiology, appreciate recommendations L back discomfort, pain w/ palpation: Voltaren Gel QID PRN h/o DVT, bilateral PEs: CTA negative for PE Grave's disease- TSH 0.067: Continue [place] 60 mg daily DVT prophylaxis: Heparin SQ BID Code Status: LEVEL I, FULL Dispo: From home, lives w/ - no discharge needs anticipated Level of Care Telemetry Resuscitation Status FULL RESUSCITATION VTE Prophylaxis VTE Risk Assessment Done? Y/N: Yes Risk Level: High Given or contraindicated: Unfractionated heparin SQ, T.E.D. Stockings, SCD's Reviewed: Pt Seen/Exam by Me History Pt states she feels much improved. States that yesterday was a normal day for her until around bedtime when she noted that she felt out of sorts. Pt reports that she has a hx of iron deficiency that waxes and wanes. She will be quite low, start supplementation, and then quickly become too high and need to d/c use. She was seen by her blood bank order control clerk about 1 month ago and states she was told her iron was "borderline" although she cannot remember the exact number and it is not in our system. She states she was advised to resume iron for 1-2 months and have it rechecked. She has been on iron again for about 1 month. Increased LE swelling Agree with HPI/ROS as noted. General Appearance: WD/WN, no apparent distress Respiratory: normal breath sounds, no respiratory distress Cardiovascular: normal peripheral pulses, regular rate, rhythm Gastrointestinal: non tender, soft Extremities: non-tender, pedal edema (2+) Neurologic/Psychiatric: alert, normal mood/affect, oriented x 3 Assessment/Plan Agree with plan as outlined above New onset afib with RVR that resolved spontaneously and remains resolved Possibly related to fluid overload given LE swelling and elevated BNP, monitor Hx of PE, CTA neg, CXR neg for CHF Trop with mild elevation in the setting of afib with RVR, serials Iron deficiency, hx as outlined above Studies pending
[2017-07-06 20:52] VITALS: BP 150/82; PULSE 87; TEMP 36.6; O2SAT 96; Ht 160 cm; Wt 79.8 kg
[2017-07-06 21:56] LABS: PROTHROMBIN TIME (PATIENT) 11.1 SECONDS (9.0-12.0)
[2017-07-06 22:42] LABS: URINE APPEARANCE CLEAR (CLEAR); URINE BILIRUBIN NEG (NEG); URINE COLOR YELLOW; URINE EPITHELIAL CELL AUTO 20-30 /lpf (0-5); URINE NITRITE NEG (NEG); URINE SPECIFIC GRAVITY > 1.045 (1.000-1.030); UROBILINOGEN NEG (NEG); ZZUR CULT IF INDIC CLEAN CATCH YES
[2017-07-06 22:46] LABS: MANUAL MICROSCOPIC REQUIRED? NO; REVIEW REQ? NO
[2017-07-06] MEDS: NSS + 20MEQ KCL 1000ML 1,000 ML IV SCH (23:23)
[2017-07-06] MEDS: DICLOFENAC SOD 1% GEL 100 GM TUBE EXT PRN (23:24)
[2017-07-06 23:44] VITALS: BP 124/69; PULSE 63; TEMP 36.6; O2SAT 95
[2017-07-06] MEDS ORDERED: IV FLUIDS COMPLETED PRN (23:45)
[2017-07-07 03:01] VITALS: BP 116/61; PULSE 85; TEMP 36.5; O2SAT 93
[2017-07-07] MEDS: DICLOFENAC SOD 1% GEL 100 GM TUBE EXT PRN ×2 (05:25→19:42)
[2017-07-07] MEDS: NSS + 20MEQ KCL 1000ML 1,000 ML IV SCH (07:00)
[2017-07-07 07:07] VITALS: BP 128/65; PULSE 65; TEMP 36.5; O2SAT 92
[2017-07-07] MEDS: ARMOUR THYROID 30 MG TAB PO SCH (08:06)
[2017-07-07] MEDS: ASPIRIN 81 MG ECTAB PO SCH (08:06)
[2017-07-07] MEDS: PREMARIN VAG CRM 14 APPLN/30 GM TUBE PV SCH (08:07)
[2017-07-07] MEDS ORDERED: HEPARIN SOD 5000 UNIT/0.5 ML CARP SQ SCH (09:00)
[2017-07-07 09:02] LABS: BLOOD UREA NITROGEN 14 mg/dl (7-18); CALCIUM 9.2 mg/dl (8.5-10.1); CARBON DIOXIDE 27 mmol/L (21-32); CHLORIDE 111 mmol/L (98-107); CREATININE 0.58 mg/dl (0.60-1.20); GLUCOSE 92 mg/dl (70-99); POTASSIUM 3.9 mmol/L (3.5-5.1); SODIUM 143 mmol/L (136-145)
[2017-07-07 09:22] LABS: FERRITIN 21.3 ng/ml (8.0-388.0); TOTAL IRON BINDING CAPACITY 349 mcg/dl (250-450)
--- NOTE | 2017-07-07 09:44 | Cardiology Consultation ---
Cardiology Consultation Date of Consultation: Jul 07, 2017. Requesting Physician: Dr. Addison Reason for Consultation: Paroxysmal atrial fibrillation Pt evaluation today including: conversation w/ patient, physical exam, lab review, review of studies, review of inpatient medication list History of Present Illness This is a very pleasant 77-year-old woman who has a long history of venous insufficiency and peripheral edema (which has not been worse recently), she has a history of having DVT and pulmonary emboli but is not on anticoagulation. She has a history of Graves' disease and is on medication for that. She has no history of heart disease that she is aware of, and is never had palpitations in tell the afternoon or evening of 07/05/2017 when she noticed that her heart was beating somewhat rapidly. She did not feel poorly therefore she remained at home , however yesterday afternoon she was going to go out shopping but felt too dizzy and waited in the car. She continued to feel dizzy and she was across the street from an urgent care center therefore she went there and was noted to be in atrial fibrillation with a rapid ventricular response. While waiting there she felt nearly presyncopal but did not have true presyncope or syncope but was diaphoretic and had to sit down. She was seen in the emergency room and rapidly converted to sinus rhythm at 1646 on 07/06/2017. At the time of my evaluation she is feeling well, she was quite aware of the conversion of her rhythm and felt well immediately thereafter. She has had no chest discomfort with this event, and following conversion has had no lightheadedness, dizziness or diaphoresis. She is not having shortness of breath either during atrial arrhythmia or currently. She does not recall having an echocardiogram it is not seem to be 1 in her record. Past Medical/Surgical History (1) Hypothyroid Chronic venous insufficiency and peripheral edema Prior pulmonary emboli Social History Smoking Status: Never Smoker History of Alcohol Use: Yes (OCC) Review of Systems Constitutional: No fever, No weight loss, No weakness Respiratory: No cough, No wheezing, No shortness of breath, No dyspnea on exertion Cardiac: + see HPI, + edema (due to chronic venous insufficiency), + palpitations, + problem reported (lightheadedness associated with rapid heart rates), No chest pain, No orthopnea, No PND Abdomen: No pain, No nausea, No vomiting, No diarrhea, No GI bleeding Female : No problem reported Neurologic: No paralysis, No weakness, No numbness/tingling, No balance problems Heme: No abnormal bleeding/bruising, No clotting problems Endo: No fatigue Skin: No problem reported All Other Systems: Reviewed and Negative Allergies Coded Allergies: Cephalosporins (Verified Allergy, Unknown, UNKNOWN, 06/25/12) Sulfa Drugs (Verified Allergy, Unknown, 01/27/16) Medications Current Inpatient Medications Medications (Trade) Dose Ordered Sig/Nate Route Start Time Stop Time Status Last Admin Dose Admin Ioversol (Optiray 320) 100 ml UD PRN IV 07/06/17 17:45 07/10/17 17:44 Heparin Sodium (Porcine) (Heparin Sq 5000 Unit/0.5ml) 5,000 unit Q12 SQ 07/07/17 09:00 08/06/17 08:59 07/07/17 08:19 5,000 UNIT Acetaminophen (Tylenol Tab) 650 mg Q4H PRN PO 07/06/17 19:15 08/05/17 19:14 Al Hydrox/Mg Hydrox/Simethicone (Maalox Max Susp) 15 ml Q4H PRN PO 07/06/17 19:15 08/05/17 19:14 Magnesium Hydroxide (Milk Of Magnesia Susp) 30 ml Q12H PRN PO 07/06/17 19:15 08/05/17 19:14 Ondansetron HCl (Zofran Inj) 4 mg Q6H PRN IV 07/06/17 19:15 08/05/17 19:14 Nitroglycerin (Nitrostat Tab) 0.4 mg UD PRN SL 07/06/17 19:15 08/05/17 19:14 Aspirin (Ecotrin Tab) 81 mg QAM PO 07/07/17 09:00 08/06/17 08:59 07/07/17 08:06 81 MG Polyethylene (Miralax Powder Packet) 17 gm DAILY PRN PO 07/06/17 19:15 08/05/17 19:14 Metoprolol Tartrate (Lopressor Iv) 5 mg Q6 PRN IV 07/06/17 19:15 08/05/17 19:14 Thyroid ([place] Thyroid Tab) 60 mg DAILY PO 07/07/17 09:00 08/06/17 08:59 07/07/17 08:06 60 MG Estrogens Conjugated (Premarin Vag Crm) 1 appln DAILY PV 07/07/17 09:00 08/06/17 08:59 Potassium Chloride/Sodium Chloride 1,000 ml @ 100 mls/hr Q10H IV 07/06/17 21:00 08/05/17 20:59 07/06/17 23:23 100 MLS/HR Diclofenac Sodium (Voltaren 1% Top Gel) 1 appln QID PRN EXT 07/06/17 19:15 08/05/17 19:14 07/07/17 05:25 1 APPLN Miscellaneous (Iv Fluids Completed) 1 ea PRN PRN N/A 07/06/17 23:45 07/06/18 23:44 Physical Exam Vital Signs Past 12 Hours Date Time Temp Pulse Resp B/P (MAP) Pulse Ox O2 Delivery O2 Flow Rate FiO2 07/07/17 07:07 36.5 65 18 128/65 (86) 92 Room Air 07/07/17 04:00 Room Air 07/07/17 03:01 36.5 85 16 116/61 (79) 93 Room Air 07/06/17 23:59 Room Air 07/06/17 23:44 36.6 63 18 124/69 (87) 95 Room Air Constitutional: General Apperance: heathly-appearing Level of Distress: NAD Psychiatric: Mental Status: active & alert Head: normocephalic Eyes: EOM: EOMI ENMT: normal ENT inspection, hearing grossly normal Neck: supple, no masses Lungs: Respiratory effort: no dyspnea, good air movement Auscultation: breath sounds normal, no wheezing Cardiovascular: Heart Auscultation: RRR, no murmurs, no rubs, no gallops Peripheral Pulses: Bruits: none appreciated Abdomen: Bowel Sounds: normal Inspection & Palpation: soft, no tenderness, guarding & rebound, no masses Musculoskeletal: normal strength (5/5 throughout) Extremities: edema (+2 left, +1 right edema) Neurologic: Cranial Nerves: grossly intact Sensation: grossly intact Data Laboratory Results: Last 24 Hours Test 07/06/17 16:20 07/06/17 21:24 07/06/17 22:10 07/07/17 00:00 White Blood Count 10.07 K/uL Red Blood Count 4.78 M/uL Hemoglobin 13.6 g/dL Hematocrit 41.5 % Mean Corpuscular Volume 86.8 fL Mean Corpuscular Hemoglobin 28.5 pg Mean Corpuscular Hemoglobin Concent 32.8 g/dl Platelet Count 296 K/uL Mean Platelet Volume 10.8 fL Neutrophils (%) (Auto) 62.4 % Lymphocytes (%) (Auto) 27.4 % Monocytes (%) (Auto) 7.6 % Eosinophils (%) (Auto) 2.0 % Basophils (%) (Auto) 0.2 % Neutrophils # (Auto) 6.28 K/uL Lymphocytes # (Auto) 2.76 K/uL Monocytes # (Auto) 0.77 K/uL Eosinophils # (Auto) 0.20 K/uL Basophils # (Auto) 0.02 K/uL RDW Standard Deviation 51.6 fL RDW Coefficient of Variation 16.1 % Immature Granulocyte % (Auto) 0.4 % Immature Granulocyte # (Auto) 0.04 K/uL Sodium Level 141 mmol/L Potassium Level 3.5 mmol/L Chloride Level 109 mmol/L Carbon Dioxide Level 22 mmol/L Anion Gap 10.0 mmol/L Blood Urea Nitrogen 19 mg/dl Creatinine 0.87 mg/dl Est Creatinine Clear Calc Drug Dose 52.5 ml/min Estimated GFR () 74.0 Estimated GFR (Non- 63.8 BUN/Creatinine Ratio 21.8 Random Glucose 128 mg/dl Calcium Level 9.8 mg/dl Magnesium Level 1.9 mg/dl Total Bilirubin 0.3 mg/dl Direct Bilirubin 0.1 mg/dl Aspartate Amino Transf (AST/SGOT) 24 U/L Alanine Aminotransferase (ALT/SGPT) 24 U/L Alkaline Phosphatase 68 U/L Troponin I 0.335 ng/ml Pro-B-Type Natriuretic Peptide 2321 pg/ml Total Protein 7.4 gm/dl Albumin 3.3 gm/dl Lipase 145 U/L Thyroid Stimulating Hormone (TSH) 0.067 uIu/ml Free Thyroxine 1.03 ng/dl Prothrombin Time 11.1 SECONDS Prothromb Time International Ratio 1.0 Activated Partial Thromboplast Time 24.8 SECONDS Partial Thromboplastin Ratio 1.0 Urine Color YELLOW Urine Appearance CLEAR Urine pH 5.0 Urine Specific [place] > 1.045 Urine Protein 1+ Urine Glucose (UA) NEG Urine Ketones TRACE Urine Occult Blood TRACE Urine Nitrite NEG Urine Bilirubin NEG Urine Urobilinogen NEG Urine Leukocyte Esterase SMALL Urine WBC (Auto) 10-30 /hpf Urine RBC (Auto) 5-10 /hpf Urine Hyaline Casts (Auto) 1-5 /lpf Urine Epithelial Cells (Auto) 20-30 /lpf Urine Bacteria (Auto) NEG Creatine Kinase MB Ratio Test 07/07/17 00:42 07/07/17 07:57 Creatine Kinase MB 3.0 ng/ml 2.2 ng/ml Troponin I 0.273 ng/ml 0.239 ng/ml Sodium Level 143 mmol/L Potassium Level 3.9 mmol/L Chloride Level 111 mmol/L Carbon Dioxide Level 27 mmol/L Anion Gap 5.0 mmol/L Blood Urea Nitrogen 14 mg/dl Creatinine 0.58 mg/dl Est Creatinine Clear Calc Drug Dose 78.7 ml/min Estimated GFR () 102.3 Estimated GFR (Non- 88.3 BUN/Creatinine Ratio 24.0 Random Glucose 92 mg/dl Calcium Level 9.2 mg/dl Iron Level 77 mcg/dl Total Iron Binding Capacity 349 mcg/dl Transferrin 269 mg/dl Transferrin % Saturation 20 % Ferritin 21.3 ng/ml Creatine Kinase MB Ratio EKG: Her electrocardiogram on arrival shows atrial fibrillation at heart rate of 121 bpm, possible left ventricular hypertrophy, probable left axis deviation. A subsequent electrocardiogram this morning shows sinus rhythm at 71 bpm, QRS complexes are similar. Telemetry reviewed: On admission she was in atrial fibrillation with rapid ventricular response, at 1646 she converted to sinus rhythm and has remained. Assessment & Plan #1. Atrial fibrillation: By symptoms she had onset of atrial fibrillation sometime afternoon or evening of 07/05/2017 and this converted back to normal in the afternoon of 07/06/2017. She had it for about 24 hours, the rate was rapid during the arrhythmia. She had symptoms of lightheadedness and near presyncope, these symptoms all resolved with spontaneous termination of the arrhythmia. She does have a history of Graves' disease and her TSH is low, which may be contributory to her atrial arrhythmia although atrial fibrillation so common in her age group that that may not be a factor. At this point I think we should consider keeping her on something for heart rate control as well as an anticoagulant. I discussed this with her and she is willing. My recommendation would be to use Eliquis, her dose will be 5 mg twice a day. I told her that that would be indefinitely unless we feel strongly that we can reverse the cause of atrial fibrillation which is unlikely. She has not been on rate control medications, her blood pressures normal today although it was a little bit elevated last evening. She will need something for rate control, I would recommend diltiazem CD 180 mg daily and I will give her dose now. #2. Borderline cardiac enzymes: I think her cardiac enzymes are due to demand ischemia from her prolonged atrial fibrillation. She had no symptoms to suggest angina although cannot exclude coronary artery disease. I would do an echocardiogram to look for structural heart disease, if she has one motion abnormalities I would probably consider a stress test, otherwise I would not. I don't know if she needs to remain in the hospital, I would like her to start anticoagulation and get at least one dose of diltiazem and make sure she tolerates that. I do want to get an echocardiogram and we'll order that, hopefully we can get that today. Thank you for allowing me to participate in her care.
[2017-07-07 11:21] VITALS: BP 159/83; PULSE 60; TEMP 36.7; O2SAT 97
[2017-07-07] MEDS: DILTIAZEM HCL 180 MG CAPCR PO SCH (11:27)
[2017-07-07] MEDS: APIXABAN 2.5 MG TAB PO SCH ×2 (11:27→22:01)
--- NOTE | 2017-07-07 14:53 | Progress Note ---
Subjective Date of Service: Jul 07, 2017. Subjective Pt evaluation today including: conversation w/ patient, physical exam, chart review, lab review, review of studies, review of inpatient medication list Pt resting comfortably in bed No chest pain or palpitations Problem List Medical Problems: (1) Cellulitis Status: Acute (2) New onset atrial fibrillation Status: Acute (3) Stye Status: Acute Review of Systems Constitutional: No see HPI, No fever, No chills, No sweats, No weight loss, No weakness, No fatigue, No problem reported Eyes: No see HPI, No worsening of vision, No eye pain, No redness, No discharge , No diplopia, No problem reported Respiratory: No see HPI, No cough, No sputum, No wheezing, No shortness of breath, No dyspnea on exertion, No dyspnea at rest, No hemoptysis, No problem reported Cardiac: No see HPI, No chest pain, No orthopnea, No PND, No edema, No claudication, No palpitations, No problem reported Abdomen: No see HPI, No pain, No nausea, No vomiting, No diarrhea, No constipation, No GI bleeding, No problem reported Musculoskeletal: No see HPI, No joint pain, No muscle pain, No swelling, No calf pain, No problem reported Neurologic: No see HPI, No memory loss, No paralysis, No weakness, No numbness/ tingling, No vertigo, No balance problems, No problem reported Psychiatric: No see HPI, No depression symptoms, No anhedonism, No anxiety, No insomnia, No substance abuse, No problem reported Heme: No see HPI, No abnormal bleeding/bruising, No clotting problems, No swollen lymph nodes, No night sweats, No problem reported Objective Vital Signs Date Time Temp Pulse Resp B/P (MAP) Pulse Ox O2 Delivery O2 Flow Rate FiO2 07/07/17 12:10 Room Air 07/07/17 11:21 36.7 60 18 159/83 (108) 97 Room Air 07/07/17 08:00 Room Air 07/07/17 07:07 36.5 65 18 128/65 (86) 92 Room Air 07/07/17 04:00 Room Air 07/07/17 03:01 36.5 85 16 116/61 (79) 93 Room Air 07/06/17 23:59 Room Air 07/06/17 23:44 36.6 63 18 124/69 (87) 95 Room Air 07/06/17 20:52 36.6 87 18 150/82 96 Room Air 07/06/17 19:59 86 18 131/64 94 07/06/17 19:00 86 20 149/70 94 Room Air 07/06/17 17:21 88 07/06/17 17:03 82 18 132/51 94 Room Air 07/06/17 16:25 110 07/06/17 16:17 93 Room Air 07/06/17 16:13 94 Room Air 07/06/17 16:13 109 18 94 Room Air Physical Exam General Appearance: WD/WN, no apparent distress Eyes: normal inspection, PERRL, EOMI, sclerae normal Neck: supple, no adenopathy, thyroid normal, no JVD Respiratory/Chest: chest non-tender, lungs clear Cardiovascular: no gallop, no JVD, no murmur, + irregularly irregular Abdomen: normal bowel sounds, non tender, soft, no organomegaly Extremities: normal range of motion, non-tender, normal inspection, no pedal edema Neurologic/Psychiatric: no motor/sensory deficits, alert, normal mood/affect, oriented x 3 Laboratory Results Last 24 Hours Test 07/06/17 16:20 07/06/17 21:24 07/06/17 22:10 07/07/17 00:00 White Blood Count 10.07 K/uL Red Blood Count 4.78 M/uL Hemoglobin 13.6 g/dL Hematocrit 41.5 % Mean Corpuscular Volume 86.8 fL Mean Corpuscular Hemoglobin 28.5 pg Mean Corpuscular Hemoglobin Concent 32.8 g/dl Platelet Count 296 K/uL Mean Platelet Volume 10.8 fL Neutrophils (%) (Auto) 62.4 % Lymphocytes (%) (Auto) 27.4 % Monocytes (%) (Auto) 7.6 % Eosinophils (%) (Auto) 2.0 % Basophils (%) (Auto) 0.2 % Neutrophils # (Auto) 6.28 K/uL Lymphocytes # (Auto) 2.76 K/uL Monocytes # (Auto) 0.77 K/uL Eosinophils # (Auto) 0.20 K/uL Basophils # (Auto) 0.02 K/uL RDW Standard Deviation 51.6 fL RDW Coefficient of Variation 16.1 % Immature Granulocyte % (Auto) 0.4 % Immature Granulocyte # (Auto) 0.04 K/uL Sodium Level 141 mmol/L Potassium Level 3.5 mmol/L Chloride Level 109 mmol/L Carbon Dioxide Level 22 mmol/L Anion Gap 10.0 mmol/L Blood Urea Nitrogen 19 mg/dl Creatinine 0.87 mg/dl Est Creatinine Clear Calc Drug Dose 52.5 ml/min Estimated GFR () 74.0 Estimated GFR (Non- 63.8 BUN/Creatinine Ratio 21.8 Random Glucose 128 mg/dl Calcium Level 9.8 mg/dl Magnesium Level 1.9 mg/dl Total Bilirubin 0.3 mg/dl Direct Bilirubin 0.1 mg/dl Aspartate Amino Transf (AST/SGOT) 24 U/L Alanine Aminotransferase (ALT/SGPT) 24 U/L Alkaline Phosphatase 68 U/L Troponin I 0.335 ng/ml Pro-B-Type Natriuretic Peptide 2321 pg/ml Total Protein 7.4 gm/dl Albumin 3.3 gm/dl Lipase 145 U/L Thyroid Stimulating Hormone (TSH) 0.067 uIu/ml Free Thyroxine 1.03 ng/dl Prothrombin Time 11.1 SECONDS Prothromb Time International Ratio 1.0 Activated Partial Thromboplast Time 24.8 SECONDS Partial Thromboplastin Ratio 1.0 Urine Color YELLOW Urine Appearance CLEAR Urine pH 5.0 Urine Specific [place] > 1.045 Urine Protein 1+ Urine Glucose (UA) NEG Urine Ketones TRACE Urine Occult Blood TRACE Urine Nitrite NEG Urine Bilirubin NEG Urine Urobilinogen NEG Urine Leukocyte Esterase SMALL Urine WBC (Auto) 10-30 /hpf Urine RBC (Auto) 5-10 /hpf Urine Hyaline Casts (Auto) 1-5 /lpf Urine Epithelial Cells (Auto) 20-30 /lpf Urine Bacteria (Auto) NEG Creatine Kinase MB Ratio Test 07/07/17 00:42 07/07/17 07:57 Creatine Kinase MB 3.0 ng/ml 2.2 ng/ml Troponin I 0.273 ng/ml 0.239 ng/ml Sodium Level 143 mmol/L Potassium Level 3.9 mmol/L Chloride Level 111 mmol/L Carbon Dioxide Level 27 mmol/L Anion Gap 5.0 mmol/L Blood Urea Nitrogen 14 mg/dl Creatinine 0.58 mg/dl Est Creatinine Clear Calc Drug Dose 78.7 ml/min Estimated GFR () 102.3 Estimated GFR (Non- 88.3 BUN/Creatinine Ratio 24.0 Random Glucose 92 mg/dl Calcium Level 9.2 mg/dl Iron Level 77 mcg/dl Total Iron Binding Capacity 349 mcg/dl Transferrin 269 mg/dl Transferrin % Saturation 20 % Ferritin 21.3 ng/ml Creatine Kinase MB Ratio Assessment and Plan Patient is a pleasant 77 y/o female, with PMHx of Grave's disease, h/o DVT and bilateral PEs, who presented to the ED because of lightheadedness/dizziness and weakness that started this afternoon. New onset afib, treated w/ IV Cardizem 15 mg in ED and currently NSR: - Admit to tele for cardiac monitoring - Trend cardiac enzymes- initial trop 0.335, trending downwards - EKG QAM and PRN CP - IV Metoprolol 5 mg q6 hrs PRN HR >120, started on diltiazem 180 mg PO daily - Continue ASA 81 mg daily - Consult cardiology, appreciate recommendations, await ECHO, recommend anticoag , will check on eliquis L back discomfort, pain w/ palpation: Voltaren Gel QID PRN h/o DVT, bilateral PEs: CTA negative for PE Grave's disease- TSH 0.067: Continue [place] 60 mg daily DVT prophylaxis: Heparin SQ BID Code Status: LEVEL I, FULL
[2017-07-07 15:51] VITALS: BP 150/73; PULSE 66; TEMP 36.9; O2SAT 93
--- NOTE | 2017-07-07 16:00 | ECHOCARDIOGRAM REPORT ---
*NOTICE TO RECEIVING CONSTITUTION PARTY AGENCY This information is strictly Confidential and protected under [place] law. [place] law prohibits you from making any further disclosure of this information unless further disclosure is expressly permitted by the written consent of the person to whom it pertains or is authorized by law. A general authorization for the release of medical or other information is not sufficient for this purpose. Hospital accepts no responsibility if the information is made available to any other person, INCLUDING THE PATIENT. Interpretation Summary * Name: SADIQ LEHMAN Study Date: 07/07/2017 02:05 PM BP: 159/83 mmHg * Patient Location: C.2T\S\S240\S\2 HR: 66 * : 1940 (M/d/yyyy) Gender: Female Height: 63 in * Age: 77 yrs Ethnicity: [place] Weight: 170 lb * Ordering Physician: Ortiz Stokes * Referring Physician: Self, Referred * Performed By: En Blankenship RCS * * Reason For Study: A-FIB * BSA: 1.8 m2 * -- Conclusions -- * 1. Normal LV size. Borderline concentric LVH. * 2. Normal LV systolic function. LVEF 60-65%. No regional wall motion abnormalities. * 3. Normal RV size and function. * 4. Grade I diastolic dysfunction. * 5. Mild mitral regurgitation. * 6. Mild pulmonary hypertension. Est PASP 40-45 mmHg. * 7. Mild left atrial enlargement. * 8. No prior studies for comparison. Procedure Details * Left Ventricle The left ventricle is grossly normal size. There is borderline concentric left ventricular hypertrophy. Ejection Fraction = 60-65%. No regional wall motion abnormalities noted. * Right Ventricle The right ventricle is grossly normal size. The right ventricular systolic function is normal as assessed by tricuspid annular plane systolic excursion (TAPSE) (normal >1.5 cm). * Atria The left atrium is mildly dilated. Right atrial size is normal. No ASD detected; PFO is not assessed. * Mitral Valve The mitral valve is grossly normal. There is mild mitral annular calcification. There is no mitral valve stenosis. There is mild mitral regurgitation. * Tricuspid Valve The tricuspid valve is not well visualized, but is grossly normal. There is trace tricuspid regurgitation. * Aortic Valve The aortic valve opens well. No hemodynamically significant valvular aortic stenosis. Trace aortic regurgitation. * Pulmonic Valve The pulmonic valve is not well visualized. * Great Vessels The aortic root and proximal ascending aorta are normal sized. * Pericardium/Pleural There is no pericardial effusion. * Great Vessels Dilated inferior vena cava with reduced collapsability with sniff indicates an elevated right atrial pressure of 15 mmHg * Left Ventricular Diastolic Function Grade I diastolic dysfunction, (abnormal relaxation pattern). * * MMode 2D Measurements and Calculations * IVSd 1.0 cm * * LVIDd 4.0 cm * LVIDs 2.4 cm * LVPWd 1.1 cm * * IVS/LVPW 0.92 * FS 40.0 % * EDV(Teich) 68.2 ml * ESV(Teich) 19.6 ml * EF(Teich) 71.2 % * * EDV(cubed) 62.0 ml * ESV(cubed) 13.4 ml * EF(cubed) 78.4 % * * LV mass(C)d 138.7 grams * LV mass(C)dI 76.9 grams/m\S\2 * * SV(Teich) 48.6 ml * SI(Teich) 26.9 ml/m\S\2 * SV(cubed) 48.6 ml * SI(cubed) 26.9 ml/m\S\2 * * Ao root diam 3.1 cm * Ao root area 7.4 cm\S\2 * * LVOT diam 1.9 cm * LVOT area 2.8 cm\S\2 * * LVAd ap4 28.9 cm\S\2 * LVLd ap4 8.0 cm * EDV(MOD-sp4) 86.2 ml * EDV(sp4-el) 88.3 ml * LVAs ap4 14.4 cm\S\2 * LVLs ap4 6.5 cm * ESV(MOD-sp4) 29.1 ml * ESV(sp4-el) 27.3 ml * EF(MOD-sp4) 66.2 % * EF(sp4-el) 69.1 % * * LVAd ap2 34.5 cm\S\2 * LVLd ap2 8.3 cm * EDV(MOD-sp2) 117.9 ml * EDV(sp2-el) 122.0 ml * LVAs ap2 17.6 cm\S\2 * LVLs ap2 7.1 cm * ESV(MOD-sp2) 35.6 ml * ESV(sp2-el) 36.9 ml * EF(MOD-sp2) 69.8 % * EF(sp2-el) 69.8 % * * LVLd %diff 3.3 % * EDV(MOD-bp) 100.6 ml * LVLs %diff 9.0 % * ESV(MOD-bp) 34.1 ml * EF(MOD-bp) 66.2 % * * SV(MOD-sp4) 57.1 ml * SI(MOD-sp4) 31.6 ml/m\S\2 * * SV(MOD-sp2) 82.3 ml * SI(MOD-sp2) 45.6 ml/m\S\2 * * SV(MOD-bp) 66.6 ml * SI(MOD-bp) 36.9 ml/m\S\2 * * SV(sp4-el) 61.0 ml * SI(sp4-el) 33.8 ml/m\S\2 * * SV(sp2-el) 85.1 ml * SI(sp2-el) 47.2 ml/m\S\2 * * * Doppler Measurements and Calculations * MV E max herb 110.5 cm/sec * MV A max herb 118.1 cm/sec * * MV E/A 0.94 * * MV dec time 0.15 sec * * Ao V2 max 119.4 cm/sec * Ao max PG 5.7 mmHg * Ao max PG (full) 1.2 mmHg * VELIA(V,A) 2.5 cm\S\2 * VELIA(V,D) 2.5 cm\S\2 * * LV V1 max PG 4.5 mmHg * * LV V1 max 106.1 cm/sec * * TR max herb 288.4 cm/sec * * *
[2017-07-07] MEDS ORDERED: NURSING VERBAL MED ORDER ONE (17:30)
[2017-07-07 19:55] VITALS: BP 160/78; PULSE 63; TEMP 36.9; O2SAT 93
[2017-07-07 23:10] VITALS: BP 143/71; PULSE 59; TEMP 36.7; O2SAT 94
[2017-07-08 04:16] VITALS: BP 129/64; PULSE 75; TEMP 36.6; O2SAT 93
[2017-07-08 07:05] VITALS: BP 145/76; PULSE 65; TEMP 36.4; O2SAT 94
[2017-07-08 07:36] LABS: BUN/CREATININE RATIO 20.6 (10-20); CALCIUM 8.9 mg/dl (8.5-10.1); CREATININE 0.48 mg/dl (0.60-1.20); POTASSIUM 3.7 mmol/L (3.5-5.1)
[2017-07-08] MEDS: ASPIRIN 81 MG ECTAB PO SCH (08:54)
[2017-07-08] MEDS: ARMOUR THYROID 30 MG TAB PO SCH (08:54)
[2017-07-08] MEDS: DILTIAZEM HCL 180 MG CAPCR PO SCH (08:54)
--- NOTE | 2017-07-08 08:54 | Cardiology Follow-Up ---
Subjective Date of Service: Jul 08, 2017. Pt evaluation today including: conversation w/ patient, physical exam, lab review, review of studies, review of inpatient medication list History of Present Illness This is a very pleasant 77-year-old woman who has a long history of venous insufficiency and peripheral edema (which has not been worse recently), she has a history of having DVT and pulmonary emboli but is not on anticoagulation. She has a history of Graves' disease and is on medication for that. She has no history of heart disease that she is aware of, and is never had palpitations in tell the afternoon or evening of 07/05/2017 when she noticed that her heart was beating somewhat rapidly. She did not feel poorly therefore she remained at home , however yesterday afternoon she was going to go out shopping but felt too dizzy and waited in the car. She continued to feel dizzy and she was across the street from an urgent care center therefore she went there and was noted to be in atrial fibrillation with a rapid ventricular response. While waiting there she felt nearly presyncopal but did not have true presyncope or syncope but was diaphoretic and had to sit down. She was seen in the emergency room and rapidly converted to sinus rhythm at 1646 on 07/06/2017. I started eliquis 5 mg twice a day and diltiazem 180 mg daily yesterday, she feels well on these 2 medications and is having no side effects. She has had no recurrent palpitations. Social History Smoking Status: Never Smoker History of Alcohol Use: Yes (OCC) Review of Systems Respiratory: No see HPI, No cough, No sputum, No wheezing, No shortness of breath, No dyspnea on exertion, No dyspnea at rest, No hemoptysis, No problem reported Cardiac: No see HPI, No chest pain, No orthopnea, No PND, No edema, No claudication, No palpitations, No problem reported Medications Cardiovascular: Item Value Date Time Apixaban 5 mg 07/07/17 0945 (Eliquis Tab) BID/PO 07/07/17 2201 Diltiazem HCl 180 mg 07/07/17 0945 (Cardizem Cd Cap) QAM/PO 07/07/17 1127 Aspirin 81 mg 07/07/17 0900 (Ecotrin Tab) QAM/PO 07/07/17 0806 Objective Vital Signs Past 12 Hours Date Time Temp Pulse Resp B/P (MAP) Pulse Ox O2 Delivery O2 Flow Rate FiO2 07/08/17 07:05 36.4 65 18 145/76 (99) 94 Room Air 07/08/17 04:16 36.6 75 20 129/64 (85) 93 Room Air 07/08/17 04:00 Room Air 07/07/17 23:59 Room Air 07/07/17 23:10 36.7 59 20 143/71 (95) 94 Room Air Last Recorded Weight-Kilograms: 79.800 Physical Exam Constitutional: General Apperance: heathly-appearing Level of Distress: NAD Lungs: Respiratory effort: no dyspnea, good air movement Auscultation: breath sounds normal, no wheezing Cardiovascular: Heart Auscultation: RRR, no murmurs, no rubs, no gallops Peripheral Pulses: Bruits: none appreciated Extremities: edema (+2 left, +1 right edema) Data Laboratory Results: Last 24 Hours Test 07/08/17 06:23 Sodium Level 146 mmol/L Potassium Level 3.7 mmol/L Chloride Level 111 mmol/L Carbon Dioxide Level 29 mmol/L Anion Gap 6.0 mmol/L Blood Urea Nitrogen 10 mg/dl Creatinine 0.48 mg/dl Est Creatinine Clear Calc Drug Dose 96.6 ml/min Estimated GFR () 108.9 Estimated GFR (Non- 94.0 BUN/Creatinine Ratio 20.6 Random Glucose 81 mg/dl Calcium Level 8.9 mg/dl Telemetry reviewed: No recurrent atrial fibrillation since admission, sinus rhythm Echocardiography shows normal left ventricular function without wall motion abnormalities. Assessment and Plan #1. Atrial fibrillation: By symptoms she had onset of atrial fibrillation sometime afternoon or evening of 07/05/2017 and this converted back to normal in the afternoon of 07/06/2017. She had it for about 24 hours, the rate was rapid during the arrhythmia. She had symptoms of lightheadedness and near presyncope, these symptoms all resolved with spontaneous termination of the arrhythmia. She does have a history of Graves' disease and her TSH is low, which may be contributory to her atrial arrhythmia although atrial fibrillation so common in her age group that that may not be a factor. At this point I think we should consider keeping her on something for heart rate control as well as an anticoagulant. I would prefer to use one of the newer agents, coverage may be a problem but I believe she is an unusual category of someone who has Medicare but not Medicare part D. I would like to pursue help with coverage, I' m going to give her samples until we can sort that out through the office. If we can't get coverage then we will have to switch to warfarin but I can do that as an outpatient. #2. Borderline cardiac enzymes: I think her cardiac enzymes are due to demand ischemia from her prolonged atrial fibrillation. She had no symptoms to suggest angina although cannot exclude coronary artery disease. Her echo shows no wall motion abnormalities therefore I would not pursue further evaluation for coronary artery disease. I am going to place her back on Eliquis and stop her warfarin, I'm going to arrange for her to get 24 hours of outpatient Eliquis at the time of discharge and she is to report to the office and 9:45 AM tomorrow and we will give her samples and sort out coverage for her. Thank you for allowing me to participate in her care.
[2017-07-08] MEDS: PREMARIN VAG CRM 14 APPLN/30 GM TUBE PV SCH (08:55)
[2017-07-08] MEDS ORDERED: APIXABAN 2.5 MG TAB PO SCH ×2 (09:00)
[2017-07-08 09:53] LABS: PROTHROMBIN TIME (PATIENT) 11.2 SECONDS (9.0-12.0)
[2017-07-08 11:37] VITALS: BP 144/79; PULSE 60; TEMP 36.3; O2SAT 95
[2017-07-08] MEDS ORDERED: CRDCD180 PO (12:00)
[2017-07-08] MEDS ORDERED: ELQ25 PO (12:00)
--- NOTE | 2017-07-08 12:02 | Discharge Instructions ---
Discharge Instructions Date of Service Jul 08, 2017. Admission Reason for Admission: New Onset Atrial Fibrillation Discharge Discharge Diagnosis / Problem: New onset atrial fibrillation Discharge Goals Goal(s): Decrease discomfort, Improve function, Improve disease control, Learn about illness, Diagnostic testing, Screening Activity Recommendations Activity Limitations: resume your previous activity Exercise/Sports Limitations: as tolerated . Instructions / Follow-Up Instructions / Follow-Up Patient to be discharged home Was found to have new onset atrial fibrillation Please note new changes to home medications: diltiazem 180 mg tablet to take once a day and eliquis 5mg tablet to take twice a day Will follow up at Dr Stokes's office tomorrow AM Will need to follow up with primary care provider in 1-2 weeks If worsening chest pain, palpitations, shortness of breath please report to ER Current Hospital Diet Patient's current hospital diet: AHA Diet (Heart Healthy), Gluten Free Diet Discharge Diet Recommended Diet: AHA Diet (Heart Healthy), Gluten Free Diet Pending Studies Studies pending at discharge: no Medical Emergencies . Who to Call and When: Medical Emergencies: If at any time you feel your situation is an emergency, please call 911 immediately. . Non-Emergent Contact Non-Emergency issues call your: Primary Care Provider Call Non-Emergent contact if: you have any medication questions . . "Provider Documentation" section prepared by Lonny Chapman. . VTE Core Measure Inpt VTE Proph given/why not?: Unfractionated heparin SQ, Other Anticoagulation , T.E.D. Stockings, SCD's
[2017-07-08 12:26] VITALS: BP 144/79; PULSE 60; TEMP 36.3; O2SAT 95
[2017-07-08] MEDS ORDERED: NURSING VERBAL MED ORDER ONE (13:45)
--- NOTE | 2017-07-08 14:16 | Discharge Summary ---
Discharge Summary Date of Service Jul 08, 2017. Discharge Summary Admission Date: Jul 06, 2017 at 19:11 Discharge Date: Jul 08, 2017 Discharge Disposition: Home Principal Diagnosis: New onset atrial fibrillation Immunizations: Have You Had Influenza Vaccine: No History of Tetanus Vaccine?: No History of Pneumococcal: No History of Hepatitis B Vaccine: No Consultations: Cardiology Medication Reconciliation New Medications: Apixaban (Eliquis) 2.5 Mg Tab 5 MG PO BID, #60 TAB Diltiazem HCl (Diltiazem HCl ER) 180 Mg Capcr 180 MG PO QAM, #30 TABS Continued Medications: Alpha-Lipoic Acid (Thioctic Ac (Alpha Lipoic Acid) Unknown Strength Cap 1 CAP PO DAILY Ascorbic Acid (Vitamin C) 1,000 Mg Tab 2000 MG PO DAILY Aspirin (Aspirin Ec) 81 Mg Tab 81 MG PO DAILY Cholecalciferol (Vitamin D3) 1,000 Unit Tab 3 TAB PO DAILY for 90 Days, #270 TAB 3 Refills Coenzyme Q10 (Ubidecarenone) (Co Q 10) 100 Mg Cap 100 MG PO BID Estrogens, Conjugated (Premarin) Unknown Strength Cr 1 APPLN PV DAILY Fish Oil ([place]-3) 1 Ea Cap 1 CAP PO DAILY, CAP Magnesium Gluconate (Magnesium) Unknown Strength Tab 1 TAB PO DAILY Thyroid ([place] Thyroid) 30 Mg Tab 60 MG PO DAILY Vitamin A-Beta Carotene (Vitamin A) 1 Tab Tab 1 TAB PO DAILY Vitamin B Cmplx/Vitc/Folic Ac (Nephrocaps) Cap 1 CAP PO DAILY for 90 Days, #90 CAP 3 Refills Vitamin E (E-1000) Unknown Strength Cap 1 CAP PO DAILY [Potassium Otc] () 1 TAB PO DAILY Discharge Exam Review of Systems: Constitutional: No fever, No chills, No sweats, No weakness ENT: No hearing loss, No unusual epistaxis, No nasal symptoms, No sore throat Respiratory: No cough, No sputum, No wheezing, No shortness of breath Cardiovascular: No chest pain, No orthopnea, No PND, No edema Abdomen: No pain, No nausea, No vomiting Musculoskeletal: No joint pain, No muscle pain, No swelling, No calf pain Genitourinary - Male: No hematuria, No dysuria, No urinary frequency, No urinary urgency Neurologic: No memory loss, No paralysis, No weakness, No numbness/tingling Psychiatric: No depression symptoms, No anhedonism, No anxiety Endocrine: No fatigue, No excessive thirst Integumentary: No rash, No itch Physical Exam: General Appearance: WD/WN, no apparent distress Eyes: normal inspection, PERRL, EOMI, sclerae normal Neck: supple, no adenopathy, thyroid normal, no JVD, no carotid bruits Respiratory/Chest: chest non-tender, lungs clear, normal breath sounds, no respiratory distress Cardiovascular: regular rate, rhythm, no edema, no gallop, no JVD Abdomen / GI: normal bowel sounds, non tender, soft, no organomegaly Neurologic/Psychiatric: leaf blender II-XII nml as tested, no motor/sensory deficits , alert, oriented x 3 Skin: normal color, warm/dry, no rash Lymphatic: no adenopathy Hospital Course Patient is a pleasant 77 y/o female, with PMHx of Grave's disease, h/o DVT and bilateral PEs, who presented to the ED because of lightheadedness/dizziness and weakness that started this afternoon. New onset afib, treated w/ IV Cardizem 15 mg in ED - Admit to tele for cardiac monitoring - Trend cardiac enzymes- initial trop 0.335, trending downwards - IV Metoprolol 5 mg q6 hrs PRN HR >120, started on diltiazem 180 mg PO daily - Consult cardiology, appreciate recommendations - ECHO EF 65-70%, no WMA - Cardiology recommend AC, eliquid 5 mg PO BID in addition to diltiazem CD 180 PO daily - F/U with Dr Divya Tomlinson back discomfort, pain w/ palpation: Voltaren Gel QID PRN h/o DVT, bilateral PEs: CTA negative for PE Grave's disease- TSH 0.067: Continue [place] 60 mg daily DVT prophylaxis: Heparin SQ BID Code Status: LEVEL I, FULL Total Time Spent: Greater than 30 minutes This includes examination of the patient, discharge planning, medication reconciliation, and communication with other providers. Discharge Instructions Please refer to the electronic Patient Visit Report (Discharge Instructions) for additional information.
[2017-07-08] MEDS ORDERED: WARFARIN SOD 5 MG TAB PO SCH (16:00)
== END 2017-07-08 14:01 | disposition home or self-care (01) ==
LOC: EDBD 16:09 → C.EDB 16:10 → C.2T 19:11 → ENRESERV 19:26
PROVIDERS: ADMIT Family Medicine; ATTEND Hospitalist
DX: I48.91 Unspecified atrial fibrillation (principal); I10 Essential (primary) hypertension; E89.0 Postprocedural hypothyroidism; M54.5 Low back pain; Z79.82 Long term (current) use of aspirin; Z79.899 Other long term (current) drug therapy; Z86.711 Personal history of pulmonary embolism; Z86.718 Personal history of other venous thrombosis and embolism

== ENCOUNTER → 2017-09-11 | Outpatient (CLI) | payer OTHER, BC ==
[~2017-09-11] MED LIST changes: +ALPH50CA2 PO; +ASCO10003 PO; +ASPI81TA28 PO; +B-CO1CAP17 PO; +CHOL1000 PO; +COEN1CAP17 PO; +CRDCD180 PO; +ELQ25 PO; +MAGN30TA4 PO; +OMEG10007 PO; +POTASSIUM OTC PO; +VITACAP38 PO; +VITATAB19 PO
== END | disposition home or self-care (01) ==
LOC: C.LAB1850 10:41
PROVIDERS: ATTEND Internal Medicine Endocrinology, Diabetes & Metabolism
DX: E03.9 Hypothyroidism, unspecified (principal)

== ENCOUNTER → 2017-10-02 | Outpatient (CLI) | payer OTHER, BC ==
[2017-10-02 14:10] LABS: THYROID STIMULATING HORMONE 6.19 uIu/ml (0.300-4.500)
== END | disposition home or self-care (01) ==
LOC: C.LAB1850 11:05
PROVIDERS: ATTEND Internal Medicine Endocrinology, Diabetes & Metabolism
DX: E03.9 Hypothyroidism, unspecified (principal)

== ENCOUNTER → 2017-11-26 | Outpatient (CLI) | payer OTHER, BC | END | disposition home or self-care (01) | LOC: C.LAB1850 09:56 | PROVIDERS: ATTEND Internal Medicine Endocrinology, Diabetes & Metabolism | DX: E03.9 Hypothyroidism, unspecified (principal) ==

== ENCOUNTER → 2018-02-28 | Outpatient (CLI) | payer OTHER, BC | END | disposition home or self-care (01) | LOC: C.LABSPEC 13:31 | PROVIDERS: ATTEND Obstetrics & Gynecology | DX: R39.9 Unspecified symptoms and signs involving the genitourinary system (principal) ==

== ENCOUNTER → 2018-06-05 | Outpatient (CLI) | payer OTHER, BC ==
[~2018-06-05] MED LIST changes: -B-CO1CAP17 PO; +B-COCAP2 PO
== END | disposition home or self-care (01) ==
LOC: C.LABSPEC 16:05
PROVIDERS: ATTEND Obstetrics & Gynecology
DX: N76.2 Acute vulvitis (principal)

== ENCOUNTER → 2018-06-19 | Outpatient (CLI) | payer OTHER, BC ==
--- NOTE | 2018-06-20 15:09 | MAMMOGRAPHY REPORT ---
BILATERAL DIGITAL SCREENING MAMMOGRAM TOMOSYNTHESIS WITH CAD: 06/19/2018 CLINICAL HISTORY: Routine screening. Patient has no complaints. TECHNIQUE: The study was acquired using full field digital technology and interpreted from soft copy. Breast tomosynthesis in addition to standard 2D mammography was performed. Current study was also ev aluated with a Computer Aided Detection (CAD) system. COMPARISON: Comparison is made to exams dated: 05/18/2017 mammogram, 05/10/2016 mammogram, 05/04/2015 ma mmogram, 04/08/2014 mammogram, 04/01/2013 mammogram, and 03/22/2012 mammogram - [facility]. BREAST COMPOSITION: The tissue of both breasts is almost entirely fatty. FINDINGS: There are stable asymmetries and benign rim calcifications in the right breast. No suspicio us mass, architectural distortion or cluster of microcalcifications is seen. IMPRESSION: ACR BI-RADS CATEGORY 1: NEGATIVE There is no mammographic evidence of malignancy. A 1 year screening mammogram is recommended.( 019) The patient will receive written notification of the results. Some breast cancers are not detected with mammography. A negative mammographic report should not bola y biopsy if a clinically suggestive mass is present. Malika Steven M.D. ay/:06/19/2018 14:16:58 Dry Plasterer: RT Rajani(Geovanna)(M), [facility] letter sent: Normal 1/2 BI-RADS Code: ACR BI-RADS Category 1: Negative
== END | disposition home or self-care (01) ==
LOC: C.MAMM 13:47
PROVIDERS: ATTEND Obstetrics & Gynecology
DX: Z12.31 Encounter for screening mammogram for malignant neoplasm of breast (principal)

== ENCOUNTER 2020-06-10 14:35 | Inpatient (IN) ==
[2020-06-10] MEDS ORDERED: dilTIAZem HCl 5 MG/ML 5 ML VIAL IV STA ×2 (15:02→17:07)
[2020-06-10] MEDS: MAGNESIUM SULFATE / D5W 1 GM/100 ML BAG IV SCH ×4 (15:05→16:15)
--- NOTE | 2020-06-10 15:07 | Emergency Department Note ---
History of Present Illness General Chief complaint: Arrhythmia/Palpitations Stated complaint: PULSE IS IRREGULAR Time Seen by Provider: 06/10/20 14:47 Source: patient, family, RN notes reviewed and old records reviewed Mode of arrival: ambulatory Limitations: no limitations History of Present Illness Provider complaint: Weight gain, SOB Onset (ago): week(s) 1 Location: lower extremity Relieved By: + immobilization Exacerbated By: + movement Associated symptoms: + nausea/vomiting, + shortness of breath and + weakness; no chest pain, no diaphoresis and no fever/chills This is an 80-year-old female who presents emergency department complaining of shortness of breath that has been ongoing for the past 5 days. Patient reports approximately 7 days ago she noticed her legs bilaterally were more swollen and she was short of breath. She took Benadryl for this. Since that time she has noticed her pulse has been oscillating between slow and fast. She reports that this is never happened to her before except during a period when her thyroid was being evaluated. She denies any chest pain. She called her primary care physician's office who sent her to the emergency department. Home Medications Home Medications Medication Instructions Recorded Confirmed Type omega-3 fatty acids 500 mg capsule 500 mg PO DAILY 04/04/19 06/10/20 History vitamin A 8,000 unit capsule 8,000 units PO DAILY 04/04/19 06/10/20 History alpha lipoic acid 600 mg capsule 600 mg PO DAILY cap 06/15/19 06/10/20 History ascorbic acid (vitamin C) 500 mg 500 mg PO DAILY tab 06/15/19 06/10/20 History tablet coenzyme Q10 400 mg capsule 400 mg PO DAILY cap 06/15/19 06/10/20 History vitamin E 600 unit capsule 600 units PO DAILY cap 06/15/19 06/10/20 History folic acid 400 mcg tablet 400 mcg PO DAILY 10/23/19 06/10/20 History estriol/progesterone 1 ml TOPICAL .QDX23D #30 ml 11/18/19 06/10/20 Rx thyroid (pork) 60 mg tablet 60 mg PO DAILY #30 tab 03/01/20 06/10/20 Rx cholecalciferol (vitamin D3) 125 mcg PO DAILY 06/10/20 06/10/20 History [Vitamin D3] minerals 1 tab PO DAILY 08/13/20 08/13/20 History Allergies Allergy/AdvReac Type Severity Reaction Status Date / Time Cephalosporins Allergy Unknown UNKNOWN Verified 06/02/20 12:51 Sulfa (Sulfonamide Allergy Unknown Verified 06/02/20 12:51 Antibiotics) wheat Allergy Unknown Verified 06/02/20 12:51 cephalexin [From Keflex] Allergy Verified 06/02/20 12:51 Past Med/Surg History Medical History (Updated 06/11/20 @ 18:31 by Grupo Marin MD) Abdominal bloating Cervical somatic dysfunction Chronic back pain Cystocele, midline Dyslipidemia Edema Fatigue H/O deep venous thrombosis (2010) right History of Graves' disease History of pulmonary embolism (2009) Hormone replacement therapy (HRT) Hypertension Iron deficiency anemia due to chronic blood loss Osteopenia Pelvic somatic dysfunction Postmenopausal atrophic vaginitis Postural imbalance Prolapse of vaginal royal Right shoulder pain Sacral region somatic dysfunction Segmental and somatic dysfunction of abdomen and other regions Segmental and somatic dysfunction of lumbar region Segmental and somatic dysfunction of rib cage Segmental and somatic dysfunction of thoracic region Segmental and somatic dysfunction of upper extremity Somatic dysfunction of lower extremities Thyrotoxicosis Trigger finger Urinary urgency Venous insufficiency (chronic) (peripheral) Surgical History History of appendectomy History of biopsy 08/09/99 - Endometrial bx: weakly proliferative endometrium; 08/13/96 - Endometrial bx:atrophy; 10/09/94 - Endometrial bx: benign History of cataract surgery 06/03/13 - left eye; 12/27/10 - right eye History of cholecystectomy History of colonoscopy 06/12/12; 03/28/02 History of cystoscopy 10/15/97 History of repair of rotator cuff Family History Father Myocardial infarction Mother Uterine cancer Sister Leukemia Other Arthritis Heart disease Hypertension Denies family history of Ovarian cancer Prostate cancer Breast cancer Colorectal cancer Social History (Updated 06/10/20 @ 17:31 by Richardson Moy) Smoking Status: Never smoker Second Hand Exposure: No; Hx Alcohol Use: No Hx Substance Use: No Preferred Language: [place]an Communication Ability: Effective Visual Impairment: No Limitations Hearing Ability: Normal Clinical Assessment Manager Required: No Beliefs That Will Affect Care: None marital status: Current Living Situation: Spouse Current Living Situation Comment: lives in [place] 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, 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 How many Children do You have: 3 How many Children do You have Comment: 1 son, 2 daughters Other Information That Helps Us Care for You: No Feels Safe at Home: Yes Safety Concerns: Feels Safe At This Time Childhood Exposure to Second-Hand Smoke: No Dental Care, Regularly: Yes Physical Activity Frequency: 1-2 Times per Week Seatbelt Use: always Review of Systems A total of 10 systems reviewed and were otherwise negative Physical Exam Vital Signs Vital Signs - 24 hr 06/10/20 14:37 Temperature 36.7 C Temperature Source Oral Pulse Rate 140 H Respiratory Rate 20 Blood Pressure 161/124 H Blood Pressure Mean 136 Pulse Oximetry 94 Oxygen Delivery Method Room Air Sepsis Recent Fever Within 48 Hours No Sepsis New/Unexplained Change in Mental Status No Sepsis Action Taken by Nursing No Action Required VITAL SIGNS - Vital signs and nursing notes were reviewed. GENERAL - 80-year-old female appearing stated age who is in no acute distress. Communicates well with provider and answers questions appropriately. SKIN - Without rashes. HEAD - NC/AT. EYES - PERRL with EOMI bilaterally. Sclera anicteric. Palpebral conjunctiva pink and moist with no injection noted. EARS - No deformities of external structures noted on gross examination bilaterally. No pain elicited with palpation of the tragus bilaterally. External auditory canals without discharge or otorrhea. Tympanic membranes pearly randolph without retraction or bulging. No fluid or purulent material visualized behind the TM. Handle of malleus, umbo, cone of light, pars tensa/flaccid all easily visualized. NOSE - Midline and without cyanosis. No epistaxis or purulent drainage noted. Septum midline without deviation or septal hematoma noted. MOUTH/OROPHARYNX - Without perioral cyanosis. Buccal mucosa pink and moist and without leukoplakia. Tongue midline with equal elevation of palate bilaterally. No tonsillar hypertrophy, erythema, or exudates noted. dentition noted. NECK - Neck with FROM. Supple to palpation. lymphadenopathy noted. No nuchal rigidity. LUNGS - Chest wall symmetric without accessory muscle use, intercostals retractions, or central cyanosis. Normal vesicular breath sounds CTA B/L. No wheezes, rales, or rhonchi appreciated. CARDIAC - RRR with S1/S2. No murmur, rubs, or gallops appreciated. ABDOMEN - Abdominal contour without pulsations or visible masses. BS normoactive all four quadrants. No tenderness, palpable masses, hepatosplenomegaly, or ascites noted. EXTREMITIES - No clubbing or peripheral cyanosis. No pretibial edema present. +3/5 radial, posterior tibial, and dorsalis pedis pulses palpated throughout. +5/5 strength noted in UE/LE bilaterally. NEUROLOGIC - Cranial nerves II through XII grossly intact. Sensory intact to light touch throughout. Patellar reflexes +2/4. PSYCH - A&Ox3 and cooperates fully with examiner. Pt is very pleasant and interacts well with examiner. Course Administered Medications Acetaminophen (Acetaminophen 325 Mg Tab) 650 mg PO Q4H PRN PRN Reason: Pain or Fever Stop: 07/10/20 18:58 Last Admin: 06/11/20 04:53 Dose: 650 mg Documented by: [id number] Admin: 06/11/20 00:26 Dose: 650 mg Documented by: [id number] Ascorbic Acid (Ascorbic Acid 500 Mg Tab) 500 mg PO DAILY [facility] Stop: 07/11/20 08:59 Last Admin: 06/11/20 08:02 Dose: 500 mg Documented by: [id number] Folic Acid (Folic Acid 400 Mcg Tab) 400 mcg PO DAILY [facility] Stop: 07/11/20 08:59 Last Admin: 06/11/20 08:01 Dose: 400 mcg Documented by: [id number] Diltiazem HCl 125 mg/ Dextrose 125 mls @ 5 mls/hr IV .Q24H [facility]; Protocol Stop: 07/10/20 17:14 Last Titration: 06/11/20 15:21 Dose: 5 mg/hr, 5 mls/hr Documented by: [id number] Cosigned by: [id number] Admin: 06/11/20 14:07 Dose: 5 mg/hr, 5 mls/hr Documented by: [id number] Cosigned by: [id number] Titration: 06/11/20 14:07 Dose: 5 mg/hr, 5 mls/hr Documented by: [id number] Cosigned by: [id number] Titration: 06/11/20 07:07 Dose: 5 mg/hr, 5 mls/hr Documented by: [id number] Cosigned by: [id number] Admin: 06/10/20 17:41 Dose: 5 mg/hr, 5 mls/hr Documented by: [id number] Cosigned by: [id number] Heparin Sodium/Dextrose (Heparin Sodium/Dextrose) 25,000 units in 500 mls @ 22 mls/hr IV .[id number] [facility]; Protocol Stop: 07/10/20 18:58 Last Titration: 06/11/20 15:21 Dose: 1,100 units/hr, 22 mls/hr Documented by: [id number] Cosigned by: [id number] Titration: 06/11/20 07:08 Dose: 1,100 units/hr, 22 mls/hr Documented by: [id number] Cosigned by: [id number] Titration: 06/11/20 04:46 Dose: 1,100 units/hr, 22 mls/hr Documented by: [id number] Cosigned by: [id number] Titration: 06/10/20 23:09 Dose: 1,100 units/hr, 22 mls/hr Documented by: [id number] Cosigned by: [id number] Admin: 06/10/20 21:47 Dose: 1,100 units/hr, 22 mls/hr Documented by: [id number] Cosigned by: [id number] Metoprolol Tartrate (Metoprolol Tartrate 25 Mg Tab) 25 mg PO Q6 [facility] Stop: 07/11/20 14:59 Last Admin: 06/11/20 16:27 Dose: 25 mg Documented by: [id number] Miscellaneous (*Estriol-Progesterone*Order Awaiting Action) 1 ea N/A QS [facility] Stop: 07/11/20 00:00 Last Admin: 06/11/20 16:27 Dose: Not Given Documented by: [id number] Admin: 06/11/20 08:01 Dose: Not Given Documented by: [id number] Admin: 06/11/20 00:27 Dose: Not Given Documented by: [id number] Thyroid ([place] Thyroid 30 Mg Tab) 60 mg PO DAILY [facility] Stop: 07/11/20 08:59 Last Admin: 06/11/20 08:02 Dose: 60 mg Documented by: [id number] Trolamine Salicylate (Trolamine Salicylate 10% Crm 255 Appln/85 Gm Tube) 1 appln EXT Q6H PRN PRN Reason: pain Stop: 07/10/20 20:53 Last Admin: 06/10/20 22:15 Dose: 1 appln Documented by: [id number] Vitamin D (Cholecalciferol 1,000 Units 25 Mcg Tab) 5,000 units PO DAILY [facility] Stop: 07/11/20 08:59 Last Admin: 06/11/20 08:02 Dose: 5,000 units Documented by: [id number] Discontinued Medications Aspirin (Aspirin Chew 324 Mg) 324 mg PO NOW STA Stop: 06/10/20 16:02 Last Admin: 06/10/20 16:17 Dose: 324 mg Documented by: [id number] Diltiazem HCl (Diltiazem Hcl 5 Mg/Ml 5 Ml Vial) 18 mg IV NOW STA Stop: 06/10/20 15:03 Last Admin: 06/10/20 15:24 Dose: 18 mg Documented by: [id number] Cosigned by: [id number] Diltiazem HCl (Diltiazem Hcl 5 Mg/Ml 5 Ml Vial) 5 mg IV NOW STA Stop: 06/10/20 17:08 Last Admin: 06/10/20 17:40 Dose: 5 mg Documented by: [id number] Cosigned by: [id number] Furosemide (Furosemide 40 Mg/4 Ml Vial) 20 mg IV NOW STA Stop: 06/10/20 17:59 Last Admin: 06/10/20 18:09 Dose: 20 mg Documented by: [id number] Magnesium Sulfate/Dextrose (Magnesium Sulfate / D5w) 1 gm in 100 mls @ 200 mls/hr IV Q30M [facility] Stop: 06/10/20 16:00 Last Infusion: 06/10/20 15:36 Dose: 0 mls/hr Documented by: [id number] Admin: 06/10/20 15:21 Dose: 400 mls/hr Documented by: [id number] Infusion: 06/10/20 15:20 Dose: 0 mls/hr Documented by: [id number] Admin: 06/10/20 15:05 Dose: 400 mls/hr Documented by: [id number] Magnesium Sulfate/Dextrose (Magnesium Sulfate / D5w) 1 gm in 100 mls @ 200 mls/hr IV Q30M [facility] Stop: 06/10/20 16:01 Last Infusion: 06/10/20 16:30 Dose: 0 mls/hr Documented by: [id number] Admin: 06/10/20 16:15 Dose: 400 mls/hr Documented by: [id number] Infusion: 06/10/20 16:14 Dose: 0 mls/hr Documented by: [id number] Admin: 06/10/20 15:59 Dose: 400 mls/hr Documented by: [id number] Furosemide 20 mg/ Syringe 2 mls @ 4 mls/min IV TODAY@1445 [facility] Stop: 06/11/20 14:46 Last Admin: 06/11/20 16:27 Dose: 4 mls/min Documented by: [id number] Potassium Chloride (Potassium Chloride 20 Meq Tabcr) 40 meq PO NOW STA Stop: 06/10/20 15:42 Last Admin: 06/10/20 16:01 Dose: 40 meq Documented by: [id number] Potassium Chloride (Potassium Chloride 20 Meq Tabcr) 40 meq PO NOW STA Stop: 06/10/20 17:59 Last Admin: 06/10/20 18:09 Dose: 40 meq Documented by: [id number] Medical Decision Making Differential Diagnosis Cardiac ischemia, aortic dissection, pulmonary embolism, pneumothorax, pneumonia, pericarditis, myocarditis, esophageal rupture, GERD, cholecystitis, pancreatitis, musculoskeletal, as well as other pathologies. Medical Records Attestation: I reviewed the patient's medical records. Home Medications Current Medication List: was personally reviewed by me Laboratory Data Attestation: I reviewed the patient's lab results. Result diagrams: 06/10/20 15:04 06/11/20 03:53 Lab Results 06/10/20 06/10/20 06/10/20 Range/Units 15:04 15:04 15:04 WBC 8.30 (4.8-10.8) K/uL RBC 4.48 (4.2-5.4) M/uL Hgb 13.1 (12.0-16.0) g/dL Hct 39.6 (37-47) % MCV 88.4 (80-100) fL MCH 29.2 (25-34) pg MCHC 33.1 (32-36) g/dL RDW Std Deviation 48.2 H (36.4-46.3) fL RDW Coeff of Burak 15.0 H (11.5-14.5) % Plt Count 244 (130-400) K/uL MPV 10.6 H (7.4-10.4) fL Immature Gran % (Auto) 0.1 % Neut % (Auto) 64.8 % Lymph % (Auto) 25.5 % Pettis % (Auto) 7.1 % Eos % (Auto) 2.3 % Baso % (Auto) 0.2 % Neut # (Auto) 5.37 (1.4-6.5) K/uL Lymph # (Auto) 2.12 (1.2-3.4) K/uL Pettis # (Auto) 0.59 (0.11-0.59) K/uL Eos # (Auto) 0.19 (0-0.5) K/uL Baso # (Auto) 0.02 (0-0.2) K/uL Immature Gran # (Auto) 0.01 (0.00-0.02) K/uL PT 11.6 (9.0-12.0) Seconds INR 1.1 (0.9-1.1) APTT 27.1 (21.0-31.0) Seconds PTT Ratio 1.0 Sodium 141 (136-145) mmol/L Potassium 3.3 L (3.5-5.1) mmol/L Chloride 108 H (98-107) mmol/L Carbon Dioxide 26 (21-32) mmol/L Anion Gap 7.0 (3-11) BUN 15 (7-18) mg/dl Creatinine 0.78 (0.6-1.2) mg/dl Est Cr Clr Drug Dosing 54.3 ml/min Est GFR ( Amer) 82.6 Est GFR (Non-Af Amer) 71.3 BUN/Creatinine Ratio 18.7 (10-20) Glucose 107 H (70-99) mg/dl Calcium 9.6 (8.5-10.1) mg/dl Total Bilirubin 0.6 (0.2-1) mg/dl AST 23 (15-37) U/L ALT 30 (12-78) U/L Alkaline Phosphatase 82 (45-117) U/L Total Creatine Kinase 84 (26-192) U/L CK-MB (CK-2) 2.4 (0.5-3.6) ng/ml CK/CKMB % Calc 2.9 (0-3.0) Troponin I 0.017 (0-0.045) ng/ml NT-Pro-B Natriuret Pep 678 (0-1800) pg/ml Total Protein 7.7 (6.4-8.2) gm/dl Albumin 3.8 (3.4-5.0) gm/dl Globulin 3.9 (2.5-4.0) gm/dl Albumin/Globulin Ratio 1.0 (0.9-2) Lipase 143 (73-393) U/L TSH 0.112 L (0.300-4.500) uIu/ml Free T4 1.07 (0.8-1.6) ng/dl Imaging Data Radiologist's Impression: [place], [place] [phone] XRay Report Patient: SADIQ LEHMAN ANNAdmit Date: 06/10/20 MR#: [id number]: [address] Acct ID:[id number]: [address] Date: 1940City Zip: [place] [address] Age: 80Location: ED Sex: F Room/Bed: Att Phy:Diagnosis: PULSE IS IRREGULAR Yvette Phy: Earnest Carmona, DOService Date: 06/10/20 Fam Phy:Interpreting Phy: Inder Higgins MD Admit Phy: Ordering Phy: Grupo Marin MD cc: ~ SINGLE VIEW CHEST CLINICAL HISTORY: Atypical chest pain FINDINGS: An AP, portable, upright chest radiograph is compared to chest x-ray and chest CT dated 9 06/04/2010. The examination is degraded by portable technique and patient rotation. The heart is enlarged noting atherosclerotic ca lcification of the thoracic aorta. The pulmonary vasculature is noncongested. The mitral annulus is densely calcified. Chronic interstitial thickening is similar to previous. There is bibasilar scarring/atelectasis. No airspace consolidation or large pleural effusion is identified. No pneumothorax is seen. Th skeletal structures are osteopenic. The bony thorax is grossly intact. IMPRESSION: Cardiomegaly with no active disease in the chest. ACT 112: Negative or not required by law. Electronically signed by: Inder Higgins M.D. 06/10/2020 3:38 PM Dictated: 06/10/20 1526 Transcribed: 06/10/20 1526 ECG Data Attestation: I personally reviewed and interpreted this ECG as follows: Indication: + palpitations and + SOB/dyspnea Rate (beats per minute): 125 Rhythm: + atrial fibrillation ECG Intervals/blocks: + Normal QT-c (499) ECG [place]: + Normal ECG ST segments: + ST depression (Anterolateral) ECG Findings: + Q waves (Septal) Comparison ECG Date: from (07/08/2017) Change: the following changes noted (Afib replaced NSR) MDM Narrative Patient was seen and evaluated as above in room C7. Review was performed of nursing notes and vital signs. I did review pertinent previous visits and patient history. After obtaining a thorough history and physical examination the above work up was performed. This is an 80-year-old female who presents emergency department with a new onset atrial fibrillation. Patient is not on blood thinners and I suspect has been in atrial fibrillation for at least a week. She was given 4 g of magnesium here in the emergency department as well as a dose of Cardizem. I did discuss the case with the hospitalist service as well as the paper cutter operator. She does not have an elevation in her white blood cell count chest x-ray is clear. An order was placed for continuous cardiac monitoring. The monitor shows a rate of 88 with A fib rhythm. The patient was evaluated during the global COVID-19 pandemic, and that diagnosis was suspected/considered upon their initial presentation. Their evaluation, treatment and testing was consistent with current guidelines for patients who present with complaints or symptoms that may be related to COVID- 19. Impression & Plan Atrial fibrillation with rapid ventricular response Discharge Plan Visit Data Chief Complaint: Arrhythmia/Palpitations Stated Complaint: PULSE IS IRREGULAR ED Provider: Grupo Marin Discharge Problem: Atrial fibrillation with rapid ventricular response Patient Disposition: Admitted As Inpatient Discharge Instructions Interventions: ED Discharge Assessment Last Done: 06/10/20 18:16
[2020-06-10 15:13] LABS: Basophils # (auto) 0.02 K/uL (0-0.2); Basophils % (auto) 0.2 %; Eosinophils # (auto) 0.19 K/uL (0-0.5); Eosinophils % (auto) 2.3 %; Hematocrit (blood only) 39.6 % (37-47); Hemoglobin 13.1 g/dL (12.0-16.0); Immature Granulocytes # (auto) 0.01 K/uL (0.00-0.02); Immature Granulocytes % (auto) 0.1 %; Lymphocytes # (auto) 2.12 K/uL (1.2-3.4); Lymphocytes % (auto) 25.5 %; Mean Corpuscular Hemoglobin 29.2 pg (25-34); Mean Corpuscular Hgb Conc 33.1 g/dL (32-36); Mean Corpuscular Volume 88.4 fL (80-100); Mean Platelet Volume 10.6 fL (7.4-10.4); Monocytes # (auto) 0.59 K/uL (0.11-0.59); Monocytes % (auto) 7.1 %; Neutrophils # (auto) 5.37 K/uL (1.4-6.5); Neutrophils % (auto) 64.8 %; Platelet Count 244 K/uL (130-400); RDW Standard Deviation 48.2 fL (36.4-46.3); Red Blood Count 4.48 M/uL (4.2-5.4)
[2020-06-10 15:31] LABS: INR 1.1 (0.9-1.1); Partial Thromboplastin Time 27.1 Seconds (21.0-31.0); Prothrombin Time 11.6 Seconds (9.0-12.0)
[2020-06-10 15:32] LABS: Albumin Level 3.8 gm/dl (3.4-5.0); BUN Creatinine Ratio 18.7 (10-20); Calcium 9.6 mg/dl (8.5-10.1); Creatinine Clr Calc Pharmacy 54.3 ml/min; Est GFR (African American) 82.6; Est GFR (Non-African American) 71.3; Potassium 3.3 mmol/L (3.5-5.1)
[2020-06-10 15:38] LABS: Bilirubin,Total 0.6 mg/dl (0.2-1); Creatine Kinase MB 2.4 ng/ml (0.5-3.6); Globulin 3.9 gm/dl (2.5-4.0); Total Protein 7.7 gm/dl (6.4-8.2); Troponin I 0.017 ng/ml (0-0.045)
--- NOTE | 2020-06-10 15:39 | XRay Report ---
SINGLE VIEW CHEST CLINICAL HISTORY: Atypical chest pain FINDINGS: An AP, portable, upright chest radiograph is compared to chest x-ray and chest CT dated . The examination is degraded by portable technique and patient rotation. The heart is enlarg ed noting atherosclerotic calcification of the thoracic aorta. The pulmonary vasculature is nonconges alisson. The mitral annulus is densely calcified. Chronic interstitial thickening is similar to previous. There is bibasilar scarring/atelectasis. No airspace consolidation or large pleural effusion is iden tified. No pneumothorax is seen. Th skeletal structures are osteopenic. The bony thorax is grossly in tact. IMPRESSION: Cardiomegaly with no active disease in the chest. ACT 112: Negative or not required by law. Electronically signed by: Inder Higgins M.D. 06/10/2020 3:38 PM
[2020-06-10] MEDS ORDERED: POTASSIUM CHLORIDE 20 MEQ TABCR PO STA ×2 (15:41→17:58)
[2020-06-10] MEDS ORDERED: ASPIRIN CHEW 324 MG PO STA (16:01)
[2020-06-10 16:28] LABS: Thyroid Stimulating Hormone 0.112 uIu/ml (0.300-4.500)
[2020-06-10 16:41] LABS: T4 Free Thyroxine 1.07 ng/dl (0.8-1.6)
[2020-06-10] MEDS ORDERED: STAT IV Infusion **Titration per Protocol STA (17:07)
--- NOTE | 2020-06-10 17:17 | History & Physical Report ---
Date of Service June 10, 2020 Assessment & Plan (1) PAF (paroxysmal atrial fibrillation): h/o PAF 2017. During that admission was successfully rate-controlled on diltiazem IV then PO. Eliquis recommended, but patient states she ultimately stopped taking it. Will place on cardizem infusion and titrate for HR <100. CHADs-VASC score is minimum 3, could be 4 given presence of what appears to be acute CHF. Either way anticoagulation advised. Start heparin infusion. Will need to check cost of novel agent tomorrow. Consider reducing armour thyroid even more as TSH is still suppressed despite reduction in thyroid dose 1 month ago. Replace low K. Recheck mag level am. Echo. Cardiology consultation already requested by the ER attending. (2) Acute CHF (congestive heart failure): patient appears to be in acute CHF, likely due to rapid a.fib. lasix 20mg IV x 1 now. follow response. repeat labs in am. likely to need daily lasix while here. echo to check LV function, diastolic function, etc. (3) Hypothyroidism: dose of armour thyroid was reduced 1 month ago from 75mg to 60mg. despite such TSH still mildly depressed today. consider further reduction in light of rapid a.fib. (4) Hypertension: BPs markedly elevated at presentation. Cardizem for a.fib will help with such. (5) DVT prophylaxis: heparin infusion History of Present Illness Chief Complaint: edema, rapid heart rate Primary Care Provider: Earnest Carmona, 80yo female with history of PAF who presents with LE edema starting about 1 week ago, rapid heart rates (140s to 170s at fastest), and weight gain of about 5 pounds initially (gained the weight, then the weight came down). She noted exertional fatigue this week as well. Does have history of PAF and was encouraged to take eliquis but she declined such. This was 3-4 years ago. Since that hospitalization for PAF she has not followed up with cardiology. No chest pain, orthopnea, or PND. For her LE edema she has used compression hose, icy hot, and benadryl. Has h/o hyperthyroidism / Graves disease and her thyroid medication was reduced 1 month ago (from 75mg to 60mg). Allergies Allergy/AdvReac Type Severity Reaction Status Date / Time Cephalosporins Allergy Unknown UNKNOWN Verified 06/02/20 12:51 Sulfa (Sulfonamide Allergy Unknown Verified 06/02/20 12:51 Antibiotics) wheat Allergy Unknown Verified 06/02/20 12:51 cephalexin [From Keflex] Allergy Verified 06/02/20 12:51 Home Medications Home Medications Medication Instructions Recorded Confirmed Type omega-3 fatty acids 500 mg capsule 500 mg PO DAILY 04/04/19 06/10/20 History vitamin A 8,000 unit capsule 8,000 units PO DAILY 04/04/19 06/10/20 History alpha lipoic acid 600 mg capsule 600 mg PO DAILY cap 06/15/19 06/10/20 History ascorbic acid (vitamin C) 500 mg 500 mg PO DAILY tab 06/15/19 06/10/20 History tablet coenzyme Q10 400 mg capsule 400 mg PO DAILY cap 06/15/19 06/10/20 History vitamin E 600 unit capsule 600 units PO DAILY cap 06/15/19 06/10/20 History folic acid 400 mcg tablet 400 mcg PO DAILY 10/23/19 06/10/20 History estriol/progesterone 1 ml TOPICAL .QDX23D #30 ml 11/18/19 06/10/20 Rx thyroid (pork) 60 mg tablet 60 mg PO DAILY #30 tab 03/01/20 06/10/20 Rx cholecalciferol (vitamin D3) 125 mcg PO DAILY 06/10/20 06/10/20 History [Vitamin D3] minerals 1 tab PO DAILY 06/10/20 06/10/20 History Past Med/Surg History Medical History (Updated 06/11/20 @ 07:42 by Richardson Moy) Abdominal bloating Cervical somatic dysfunction Chronic back pain Cystocele, midline Dyslipidemia Edema Fatigue H/O deep venous thrombosis (2009) right History of Graves' disease History of pulmonary embolism (2009) Hormone replacement therapy (HRT) Hypertension Iron deficiency anemia due to chronic blood loss Osteopenia Pelvic somatic dysfunction Postmenopausal atrophic vaginitis Postural imbalance Prolapse of vaginal royal Right shoulder pain Sacral region somatic dysfunction Segmental and somatic dysfunction of abdomen and other regions Segmental and somatic dysfunction of lumbar region Segmental and somatic dysfunction of rib cage Segmental and somatic dysfunction of thoracic region Segmental and somatic dysfunction of upper extremity Somatic dysfunction of lower extremities Thyrotoxicosis Trigger finger Urinary urgency Venous insufficiency (chronic) (peripheral) Surgical History History of appendectomy History of biopsy 08/09/99 - Endometrial bx: weakly proliferative endometrium; 08/13/96 - Endometrial bx:atrophy; 10/09/94 - Endometrial bx: benign History of cataract surgery 06/03/13 - left eye; 12/27/10 - right eye History of cholecystectomy History of colonoscopy 06/12/12; 03/28/02 History of cystoscopy 10/15/97 History of repair of rotator cuff Family History Father Myocardial infarction Mother Uterine cancer Sister Leukemia Other Arthritis Heart disease Hypertension Denies family history of Ovarian cancer Prostate cancer Breast cancer Colorectal cancer Social History (Updated 06/10/20 @ 17:31 by Richardson Moy) Smoking Status: Never smoker Second Hand Exposure: No; Hx Alcohol Use: No Hx Substance Use: No Preferred Language: Lao Communication Ability: Effective Visual Impairment: No Limitations Hearing Ability: Normal Paper Cone Machine Tender Required: No Beliefs That Will Affect Care: None marital status: Current Living Situation: Spouse Current Living Situation Comment: lives in [place] 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, 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 How many Children do You have: 3 How many Children do You have Comment: 1 son, 2 daughters Other Information That Helps Us Care for You: No Feels Safe at Home: Yes Safety Concerns: Feels Safe At This Time Childhood Exposure to Second-Hand Smoke: No Dental Care, Regularly: Yes Physical Activity Frequency: 1-2 Times per Week Seatbelt Use: always Review of Systems Constitutional: + weight gain; no fever, no chills and no anorexia Eyes: no worsening vision Ear, Nose, Mouth, Throat: no nasal congestion, no sore throat and no dysphagia no loss of taste or smell Respiratory: + dyspnea on exertion (with long distance ); no cough Cardiovascular: + edema; no chest pain, no orthopnea and no paroxysmal nocturnal dyspnea Gastrointestinal: no abdominal pain, no vomiting, no diarrhea/loose stools and no blood in stools Genitourinary: no dysuria Musculoskeletal: no back pain, no neck pain and no myalgia Integumentary: no rash Neurologic: no localized weakness Psychiatric: no depression Endocrine: denies diabetes Hematologic / Lymphatic: + easy bruising; no easy bleeding Physical Exam Constitutional: well developed and well nourished; no acute distress and no altered mental status Eyes: PERRL ENMT: external ear and nose normal, oropharynx normal Neck: trachea midline, no thyromegaly Respiratory: no respiratory distress Auscultation: + rales; no wheezes Cardiovascular: Rate/Rhythm: + tachycardic and + irregularly irregular Heart Sounds: normal S1 and normal S2; no murmur Vessels: + JVD, posterior tibial pulses present and dorsalis pedis pulses present Extremities: + edema (2+ b/l ) Gastrointestinal (Abdomen): normal bowel sounds, soft, nontender, no hepatosplenomegaly Musculoskeletal: no cyanosis or clubbing, extremities motor strength 5/5 Skin: no rashes, warm and dry Neurologic: deep tendon reflexes 2+ bilaterally and moves all extremities; no focal motor deficits and not confused Psychiatric: A+Ox3, euthymic affect Lymphatic: no cervical lymphadenopathy Results & Data Results & Data ([facility]) Vital Signs (Past 12 Hours) Vital Signs Temp Pulse Pulse Resp BP BP Pulse Ox 06/10/20 17:00 95 06/10/20 16:45 103 H 24 175/118 H 95 06/10/20 16:31 88 24 164/93 H 93 06/10/20 16:17 91 H 22 154/100 H 93 06/10/20 16:00 92 H 12 156/80 H 94 06/10/20 15:45 80 23 146/86 H 94 06/10/20 15:30 87 25 H 114/73 93 06/10/20 15:28 94 06/10/20 15:10 130 H 25 H 148/114 H 93 06/10/20 14:37 36.7 C 140 H 20 161/124 H 94 Laboratory Results Laboratory Results - last 24 hr 06/10/20 06/10/20 06/10/20 15:04 15:04 15:04 WBC 8.30 RBC 4.48 Hgb 13.1 Hct 39.6 MCV 88.4 MCH 29.2 MCHC 33.1 RDW Std Deviation 48.2 H RDW Coeff of Burak 15.0 H Plt Count 244 MPV 10.6 H Immature Gran % (Auto) 0.1 Neut % (Auto) 64.8 Lymph % (Auto) 25.5 [place] % (Auto) 7.1 Eos % (Auto) 2.3 Baso % (Auto) 0.2 Neut # (Auto) 5.37 Lymph # (Auto) 2.12 [place] # (Auto) 0.59 Eos # (Auto) 0.19 Baso # (Auto) 0.02 Immature Gran # (Auto) 0.01 PT 11.6 INR 1.1 APTT 27.1 PTT Ratio 1.0 Sodium 141 Potassium 3.3 L Chloride 108 H Carbon Dioxide 26 Anion Gap 7.0 BUN 15 Creatinine 0.78 Est Cr Clr Drug Dosing 54.3 Est GFR ( Amer) 82.6 Est GFR (Non-Af Amer) 71.3 BUN/Creatinine Ratio 18.7 Glucose 107 H Calcium 9.6 Magnesium Total Bilirubin 0.6 AST 23 ALT 30 Alkaline Phosphatase 82 Total Creatine Kinase 84 CK-MB (CK-2) 2.4 CK/CKMB % Calc 2.9 Troponin I 0.017 NT-Pro-B Natriuret Pep 678 Total Protein 7.7 Albumin 3.8 Globulin 3.9 Albumin/Globulin Ratio 1.0 Lipase 143 TSH 0.112 L Free T4 1.07 Hepatitis C Ab Screen 06/10/20 20:46 WBC RBC Hgb Hct MCV MCH MCHC RDW Std Deviation RDW Coeff of Burak Plt Count MPV Immature Gran % (Auto) Neut % (Auto) Lymph % (Auto) [place] % (Auto) Eos % (Auto) Baso % (Auto) Neut # (Auto) Lymph # (Auto) [place] # (Auto) Eos # (Auto) Baso # (Auto) Immature Gran # (Auto) PT INR APTT PTT Ratio Sodium Potassium Chloride Carbon Dioxide Anion Gap BUN Creatinine Est Cr Clr Drug Dosing Est GFR ( Amer) Est GFR (Non-Af Amer) BUN/Creatinine Ratio Glucose Calcium Magnesium Total Bilirubin AST ALT Alkaline Phosphatase Total Creatine Kinase CK-MB (CK-2) CK/CKMB % Calc Troponin I 0.017 NT-Pro-B Natriuret Pep Total Protein Albumin Globulin Albumin/Globulin Ratio Lipase TSH Free T4 Hepatitis C Ab Screen WBC RBC Hgb Hct MCV MCH MCHC RDW Std Deviation RDW Coeff of Burak Plt Count MPV Immature Gran % (Auto) Neut % (Auto) Lymph % (Auto) [place] % (Auto) Eos % (Auto) Baso % (Auto) Neut # (Auto) Lymph # (Auto) [place] # (Auto) Eos # (Auto) Baso # (Auto) Immature Gran # (Auto) PT INR APTT PTT Ratio Sodium Potassium Chloride Carbon Dioxide Anion Gap BUN Creatinine Est Cr Clr Drug Dosing Est GFR ( Amer) Est GFR (Non-Af Amer) BUN/Creatinine Ratio Glucose Calcium Magnesium Total Bilirubin AST ALT Alkaline Phosphatase Total Creatine Kinase CK-MB (CK-2) CK/CKMB % Calc Troponin I NT-Pro-B Natriuret Pep Total Protein Albumin Globulin Albumin/Globulin Ratio Lipase TSH Free T4 Hepatitis C Ab Screen Diagnostic Findings cxr - cardiomegaly with no active disease ekg - a.fib with RVR; ST depressions anterolateral leads Code Status & VTE Plan Code Status full VTE Prophylaxis Plan VTE Prophylaxis will be ordered: Yes PG Care Time/CCT Total # of Minutes Spent Total Time Spent with Patient: Total time spent is greater than 50% in coordination of care (as documented) at patient's floor/unit and/or counseling patient: Coding Level of Care Code 82935 Initial Inpt Care Lvl 2 Diagnoses PAF (paroxysmal atrial fibrillation) I48.0 Acute CHF (congestive heart failure) I50.9 Hypothyroidism E03.9 Hypertension I10 DVT prophylaxis Z29.9
[2020-06-10] MEDS: dilTIAZem HCL 125 MG in DEXTROSE 5% 100 ML IV SCH (17:41)
[2020-06-10] MEDS ORDERED: FUROSEMIDE 40 MG/4 ML VIAL IV STA (17:58)
[2020-06-10] MEDS ORDERED: ONDANSETRON INJ 2 MG/ML 2 ML VIAL IV PRN (18:59)
[2020-06-10] MEDS ORDERED: Heparin IV Standard *NO* Bolus IV SCH (19:30)
[2020-06-10] MEDS: HEPARIN SODIUM/DEXTROSE 25,000 UNITS/500 ML BAG IV SCH (21:47)
[2020-06-10] MEDS: TROLAMINE SALICYLATE 10% CRM 255 APPLN/85 GM TUBE EXT PRN (22:15)
[2020-06-11] MEDS: ACETAMINOPHEN 325 MG TAB PO PRN ×2 (00:26→04:53)
[2020-06-11 04:35] LABS: BUN Creatinine Ratio 20.5 (10-20); Blood Urea Nitrogen 11 mg/dl (7-18); Calcium 8.7 mg/dl (8.5-10.1); Carbon Dioxide 26 mmol/L (21-32); Chloride 110 mmol/L (98-107); Creatinine Clr Calc Pharmacy 78.3 ml/min; Est GFR (African American) 102.6; Est GFR (Non-African American) 88.5; Glucose 110 mg/dl (70-99); Magnesium 1.9 mg/dl (1.8-2.4); Potassium 3.5 mmol/L (3.5-5.1); Sodium 142 mmol/L (136-145)
[2020-06-11 04:37] LABS: Partial Thromboplastin Ratio 2.3
[2020-06-11 04:39] LABS: Troponin I < 0.015 ng/ml (0-0.045)
[2020-06-11 04:43] LABS: Partial Thromboplastin Time 65.2 Seconds (21.0-31.0)
--- NOTE | 2020-06-11 06:38 | Electrocardiogram Report ---
Test Reason : Blood Pressure : / mmHG Vent. Rate : 125 BPM Atrial Rate : 133 BPM P-R Int : 000 ms QRS Dur : 090 ms QT Int : 346 ms P-R-T Axes : 000 -15 -21 degrees QTc Int : 499 ms Atrial fibrillation with rapid ventricular response Septal infarct , age undetermined Nonspecific ST abnormality Abnormal ECG When compared with ECG of 08-JUL-2017 08:54, Atrial fibrillation has replaced Sinus rhythm Vent. rate has increased BY 60 BPM Septal infarct is now Present ST now depressed in Anterolateral leads Confirmed by Ferny Batres ([id number]) on 06/11/2020 6:38:36 AM Referred By: Confirmed By:Ferny Batres
[2020-06-11] MEDS: FOLIC ACID 400 MCG TAB PO SCH (08:01)
[2020-06-11] MEDS: ASCORBIC ACID 500 MG TAB PO SCH (08:02)
[2020-06-11] MEDS: CHOLECALCIFEROL 1,000 UNITS 25 MCG TAB PO SCH (08:02)
[2020-06-11] MEDS: ARMOUR THYROID 30 MG TAB PO SCH (08:02)
[2020-06-11] MEDS ORDERED: NON-FORMULARY MEDICATION (Coenzyme Q10 400 MG) PO SCH (09:00)
--- NOTE | 2020-06-11 13:39 | XCELERA ---
[id number]
[2020-06-11] MEDS: dilTIAZem HCL 125 MG in DEXTROSE 5% 100 ML IV SCH (14:07)
[2020-06-11] MEDS ORDERED: FUROSEMIDE 20 MG in SYRINGE 0 ML IV SCH (14:45)
--- NOTE | 2020-06-11 15:27 | Cardiology Consultation ---
Date of Consultation June 11, 2020 Assessment & Plan (1) Paroxysmal atrial fibrillation: (2) Hypertension: (3) Edema: ASSESSMENT/PLAN: 1. Paroxysmal atrial fibrillation: We discussed the diagnosis. In 2017 she spontaneously converted. She may or may not convert with current episode. She does not appear to be overly symptomatic currently with better heart rate control. Recommend metoprolol tartrate 25 mg p.o. Q 6 hours while attempting to wean her off of intravenous diltiazem. Continue anticoagulation for stroke risk reduction. She is interested in taking Eliquis on discharge. The diagnosis was discussed with her, including treatment strategies. We also discussed stroke risk reduction. 2. Hypertension: Blood pressure elevated. Metoprolol initiated as above. Would given additional dose of Lasix 20 mg IV x1. 3. Edema: She has varicose veins and likely has venous insufficiency. She is not significantly hypervolemic but may be a bit hypervolemic on examination. Fortunately, she is asymptomatic. Her proBNP is not significantly elevated. Another dose of Lasix was ordered at the time of today's visit. 4. Disposition: Follow-up in the cardiology office in 1-2 weeks following discharge. Plan of care was communicated with hospitalist service. Thank you for allowing me to participate in the care of your patient. Please call for any other questions or concerns. Sincerely, Dandre Batres M.D. History of Present Illness Reason for Consultation: Afib Requesting Physician: Dr. Marin Attending Physician: Kevon Vang History of Present Illness Mrs. Nunez is a very pleasant 80-year-old female with history significant for paroxysmal atrial fibrillation ( diagnosed in 2017), Right LE DVT and PE ( approximately 2009) , dyslipidemia and Graves disease. She was admitted on 06/10/2020 with atrial fibrillation with rapid ventricular response. For the past 1 week, she had noted that her heart rate was faster than usual on her pulse oximeter. She had noted leg swelling, exertional fatigue, and a 5 lb weight gain overnight. Apparently the 5 lb weight gain occurred after she did not wear her compression stockings and she was adamant that after she wore her compression stockings, she lost her 5 lb. She denied palpitations, chest pain, shortness of breath. She denies syncope, near-syncope, or bleeding such as melena, hematochezia, or hematuria. She has chronic left lower back pain but no acute worsening. While here, she was placed on diltiazem drip with improvement of her heart rate. She remains on diltiazem 5 milligrams/hour. She had questions about her thyroid and how that would interact with atrial fibrillation. Review of systems: As above. She also admits to nocturnal leg cramps. Review of systems otherwise negative/unremarkable. Family history: Father at the age of 82 from [place]. Mother with cancer. Social history: She denies tobacco, alcohol, or drug abuse. She lives at home with her , Ortiz. She has 3 children. 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 She was unaccompanied in her hospital room. Allergies Allergy/AdvReac Type Severity Reaction Status Date / Time Cephalosporins Allergy Unknown UNKNOWN Verified 06/02/20 12:51 Sulfa (Sulfonamide Allergy Unknown Verified 06/02/20 12:51 Antibiotics) wheat Allergy Unknown Verified 06/02/20 12:51 cephalexin [From Keflex] Allergy Verified 06/02/20 12:51 Home Medications Home Medications Medication Instructions Recorded Confirmed Type omega-3 fatty acids 500 mg capsule 500 mg PO DAILY 04/04/19 06/10/20 History vitamin A 8,000 unit capsule 8,000 units PO DAILY 04/04/19 06/10/20 History alpha lipoic acid 600 mg capsule 600 mg PO DAILY cap 06/15/19 06/10/20 History ascorbic acid (vitamin C) 500 mg 500 mg PO DAILY tab 06/15/19 06/10/20 History tablet coenzyme Q10 400 mg capsule 400 mg PO DAILY cap 06/15/19 06/10/20 History vitamin E 600 unit capsule 600 units PO DAILY cap 06/15/19 06/10/20 History folic acid 400 mcg tablet 400 mcg PO DAILY 10/23/19 06/10/20 History estriol/progesterone 1 ml TOPICAL .QDX23D #30 ml 11/18/19 06/10/20 Rx thyroid (pork) 60 mg tablet 60 mg PO DAILY #30 tab 03/01/20 06/10/20 Rx cholecalciferol (vitamin D3) 125 mcg PO DAILY 06/10/20 06/10/20 History [Vitamin D3] minerals 1 tab PO DAILY 06/10/20 06/10/20 History Patient History Medical History Abdominal bloating Cervical somatic dysfunction Chronic back pain Cystocele, midline Dyslipidemia Edema Fatigue H/O deep venous thrombosis (2010) right History of Graves' disease History of pulmonary embolism (2009) Hormone replacement therapy (HRT) Hypertension Iron deficiency anemia due to chronic blood loss Osteopenia Pelvic somatic dysfunction Postmenopausal atrophic vaginitis Postural imbalance Prolapse of vaginal royal Right shoulder pain Sacral region somatic dysfunction Segmental and somatic dysfunction of abdomen and other regions Segmental and somatic dysfunction of lumbar region Segmental and somatic dysfunction of rib cage Segmental and somatic dysfunction of thoracic region Segmental and somatic dysfunction of upper extremity Somatic dysfunction of lower extremities Thyrotoxicosis Trigger finger Urinary urgency Venous insufficiency (chronic) (peripheral) Surgical History History of appendectomy History of biopsy 08/09/99 - Endometrial bx: weakly proliferative endometrium; 08/13/96 - Endometrial bx:atrophy; 10/09/94 - Endometrial bx: benign History of cataract surgery 06/03/13 - left eye; 12/27/10 - right eye History of cholecystectomy History of colonoscopy 06/12/12; 03/28/02 History of cystoscopy 10/15/97 History of repair of rotator cuff Family History Father Myocardial infarction Mother Uterine cancer Sister Leukemia Other Arthritis Heart disease Hypertension Denies family history of Ovarian cancer Prostate cancer Breast cancer Colorectal cancer Social History (Updated 06/10/20 @ 17:31 by Richardson Moy) Smoking Status: Never smoker Second Hand Exposure: No; Hx Alcohol Use: No Hx Substance Use: No Preferred Language: Georgian Communication Ability: Effective Visual Impairment: No Limitations Hearing Ability: Normal Supervisor Seaming Required: No Beliefs That Will Affect Care: None marital status: Current Living Situation: Spouse Current Living Situation Comment: lives in [place] 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 Alert and oriented. HEENT: Anicteric sclera. Neck: Mild JVD. No bruits. Normal carotid upstrokes bilaterally. Cardiac: PMI was nondisplaced. No ventricular heave. Irregularly irregular. Normal S1-S2. No murmurs, rubs, or gallops. Pulmonary: Clear to auscultation bilaterally without wheezes, rales, or rhonchi. Abdomen: Soft, nontender, nondistended, with normoactive bowel sounds. No bruits noted. Extremities: 2+ radial pulses bilaterally. 2+ posterior tibialis pulses bilaterally. No pitting edema or cyanosis. Bilateral lower extremity varicose veins. Psychiatric: Affect appears appropriate. Results & Data ([facility]) Vital Signs (Past 12 Hours) Vital Signs Temp Pulse Pulse Resp BP Pulse Ox 06/11/20 07:19 113 H 152/90 H 06/11/20 07:03 36.5 C 97 H 16 162/117 H 95 06/11/20 07:00 79 06/11/20 03:37 36.4 C L 70 16 152/88 H 90 Intake & Output 06/09/20 06/10/20 06/11/20 06/12/20 06:59 06:59 06:59 06:59 Intake Total 893.634 / 488.807 6352.168 / 1216.168 Output Total 900 / 900 475 / 475 Balance -6.366 / -6.366 741.168 / 741.168 Weight 75.4 kg Laboratory Results Laboratory Results - last 24 hr 06/10/20 06/11/20 06/11/20 20:46 03:53 03:53 APTT PTT Ratio Sodium 142 Potassium 3.5 Chloride 110 H Carbon Dioxide 26 Anion Gap 6.0 BUN 11 Creatinine 0.54 L Est Cr Clr Drug Dosing 78.3 Est GFR ( Amer) 102.6 Est GFR (Non-Af Amer) 88.5 BUN/Creatinine Ratio 20.5 H Glucose 110 H Calcium 8.7 Magnesium 1.9 Troponin I 0.017 < 0.015 Hepatitis C Ab Screen Neg 06/11/20 03:53 APTT 65.2 H* PTT Ratio 2.3 Sodium Potassium Chloride Carbon Dioxide Anion Gap BUN Creatinine Est Cr Clr Drug Dosing Est GFR ( Amer) Est GFR (Non-Af Amer) BUN/Creatinine Ratio Glucose Calcium Magnesium Troponin I Hepatitis C Ab Screen Diagnostic Findings Telemetry personally reviewed: Atrial fibrillation. Seven beat run of ventricular tachycardia. ECG personally reviewed: ECG 06/10/2020: AFib [address] abnormality. Septal infarct. Echo 06/11/2020: Low-normal LV systolic function. EF 50-55%. No regional wall motion abnormalities. Moderate LVH. Severe left atrial dilation. MAC. Moderate MR. Mild to moderate TR. RVSP 43. Compared to prior study on 07/07/2017, LV systolic function is now low-normal and rhythm is atrial fibrillation. Chest x-ray 06/10/2020: No active disease in the chest per Radiology. Medications Administered Current Inpatient Medications Acetaminophen (Acetaminophen 325 Mg Tab) 650 mg PO Q4H PRN PRN Reason: Pain or Fever Stop: 07/10/20 18:58 Last Admin: 06/11/20 04:53 Dose: 650 mg Documented by: Ascorbic Acid (Ascorbic Acid 500 Mg Tab) 500 mg PO DAILY [facility] Stop: 07/11/20 08:59 Last Admin: 06/11/20 08:02 Dose: 500 mg Documented by: Folic Acid (Folic Acid 400 Mcg Tab) 400 mcg PO DAILY [facility] Stop: 07/11/20 08:59 Last Admin: 06/11/20 08:01 Dose: 400 mcg Documented by: Diltiazem HCl 125 mg/ Dextrose 125 mls @ 5 mls/hr IV .Q24H [facility]; Protocol Stop: 07/10/20 17:14 Last Titration: 06/11/20 15:21 Dose: 5 mg/hr, 5 mls/hr Documented by: Heparin Sodium/Dextrose (Heparin Sodium/Dextrose) 25,000 units in 500 mls @ 22 mls/hr IV .[id number] [facility]; Protocol Stop: 07/10/20 18:58 Last Titration: 06/11/20 15:21 Dose: 1,100 units/hr, 22 mls/hr Documented by: Metoprolol Tartrate (Metoprolol Tartrate 25 Mg Tab) 25 mg PO Q6 [facility] Stop: 07/11/20 14:59 Last Admin: 06/11/20 16:27 Dose: 25 mg Documented by: Miscellaneous (*Estriol-Progesterone*Order Awaiting Action) 1 ea N/A QS [facility] Stop: 09/13/20 00:00 Last Admin: 06/11/20 16:27 Dose: Not Given Documented by: Ondansetron HCl (Ondansetron Inj 2 Mg/Ml 2 Ml Vial) 4 mg IV Q6H PRN PRN Reason: Nausea Stop: 07/10/20 18:58 Thyroid ([place] Thyroid 30 Mg Tab) 60 mg PO DAILY [facility] Stop: 07/11/20 08:59 Last Admin: 06/11/20 08:02 Dose: 60 mg Documented by: Trolamine Salicylate (Trolamine Salicylate 10% Crm 255 Appln/85 Gm Tube) 1 appln EXT Q6H PRN PRN Reason: pain Stop: 07/10/20 20:53 Last Admin: 06/10/20 22:15 Dose: 1 appln Documented by: Vitamin D (Cholecalciferol 1,000 Units 25 Mcg Tab) 5,000 units PO DAILY [facility] Stop: 07/11/20 08:59 Last Admin: 06/11/20 08:02 Dose: 5,000 units Documented by: PG Care Time/CCT Total # of Minutes Spent Total Time Spent with Patient: Total time spent is greater than 50% in coordination of care (as documented) at patient's floor/unit and/or counseling patient: Coding Level of Care Code 87029 Initial Inpt Care Lvl 3 Diagnoses Paroxysmal atrial fibrillation I48.0 Hypertension I10 Edema R60.9
[2020-06-11] MEDS: METOPROLOL TARTRATE 25 MG TAB PO SCH (16:27)
[2020-06-11] MEDS: APIXABAN 5 MG TABLET PO SCH (20:17)
[2020-06-11] MEDS: HEPARIN SODIUM/DEXTROSE 25,000 UNITS/500 ML BAG IV SCH (21:34)
--- NOTE | 2020-06-11 22:50 | Hospitalist Progress Note ---
Date of Service June 11, 2020 Assessment & Plan (1) PAF (paroxysmal atrial fibrillation): h/o PAF 2017. During that admission was successfully rate-controlled on diltiazem IV then PO. Eliquis recommended, but patient states she ultimately stopped taking it. Placed on metoprolol tartrate 25 mg p.o. Q 6 hours Will wean her off of intravenous diltiazem In regards to her anticoag, patient is agreeable to eliquis, despite cost. will give her coupon for first month. Will place on cardizem infusion and titrate for HR <100. CHADs-VASC score is minimum 3, could be 4 given presence of what appears to be acute CHF. Either way anticoagulation advised. Transitioned from heparin to eliquis Consider reducing armour thyroid even more as TSH is still suppressed despite reduction in thyroid dose 1 month ago. Replace low K. Recheck mag level am. checked Echo. appreciate cardio input (2) Acute CHF (congestive heart failure): patient appears to be in acute CHF, likely due to rapid a.fib. lasix 20mg IV x 1 now. follow response. repeat labs in am. likely to need daily lasix while here. echo to check LV function, diastolic function, etc. (3) Hypothyroidism: dose of armour thyroid was reduced 1 month ago from 75mg to 60mg. despite such TSH still mildly depressed today. consider further reduction in light of rapid a.fib. (4) Hypertension: BPs markedly elevated at presentation. Cardizem for a.fib will help with such. (5) DVT prophylaxis: eliquis Admission and Anticipated Discharge Date Admission Date: June 10, 2020 Subjective Patient reports feeling improved. She denies any palpitations at this time. Review of Systems Review of Systems: All systems reviewed & are unremarkable except as noted in HPI & below Physical Exam Physical Exam: Constitutional: well developed and well nourished; no acute distress and no altered mental status Eyes: PERRL ENMT: external ear and nose normal, oropharynx normal Neck: trachea midline, no thyromegaly Respiratory: no respiratory distress Auscultation: + rales; no wheezes Cardiovascular: Rate/Rhythm: regular rate and + irregularly irregular Heart Sounds: normal S1 and normal S2; no murmur Vessels: + JVD, posterior tibial pulses present and dorsalis pedis pulses present Extremities: + edema (2+ b/l ) Gastrointestinal (Abdomen): normal bowel sounds, soft, nontender, no hepatosplenomegaly Musculoskeletal: no cyanosis or clubbing, extremities motor strength 5/5 Skin: no rashes, warm and dry Neurologic: deep tendon reflexes 2+ bilaterally and moves all extremities; no focal motor deficits and not confused Psychiatric: A+Ox3, euthymic affect Lymphatic: no cervical lymphadenopathy Results & Data Results & Data ([facility]) Vital Signs (Past 12 Hours) Vital Signs Temp Pulse Resp BP Pulse Ox 06/11/20 19:53 36.6 C 88 24 128/85 94 06/11/20 15:58 36.5 C 88 24 162/107 H 93 PG Care Time/CCT Total # of Minutes Spent Total Time Spent with Patient: Total time spent is greater than 50% in coordination of care (as documented) at patient's floor/unit and/or counseling patient: Coding Level of Care Code 24069 Subseq Hosp Care Lvl 3 Diagnoses PAF (paroxysmal atrial fibrillation) I48.0 Acute CHF (congestive heart failure) I50.9 Hypothyroidism E03.9 Hypertension I10 DVT prophylaxis Z29.9 Time Spent (min) 35
[2020-06-12] MEDS: METOPROLOL TARTRATE 25 MG TAB PO SCH ×3 (00:04→13:16)
[2020-06-12] MEDS: TROLAMINE SALICYLATE 10% CRM 255 APPLN/85 GM TUBE EXT PRN ×2 (00:07→07:56)
[2020-06-12 05:47] LABS: Partial Thromboplastin Time 28.7 Seconds (21.0-31.0)
[2020-06-12] MEDS: APIXABAN 5 MG TABLET PO SCH (07:53)
[2020-06-12] MEDS: FOLIC ACID 400 MCG TAB PO SCH (07:54)
[2020-06-12] MEDS: CHOLECALCIFEROL 1,000 UNITS 25 MCG TAB PO SCH (07:54)
[2020-06-12] MEDS: ASCORBIC ACID 500 MG TAB PO SCH (07:54)
--- NOTE | 2020-06-12 10:17 | Cardiology Progress Note ---
Date of Service June 12, 2020 Assessment & Plan (1) Paroxysmal atrial fibrillation: (2) Hypertension: (3) Edema: ASSESSMENT/PLAN: 1. Paroxysmal atrial fibrillation: History of paroxysmal atrial fibrillation but she may now have persistent if not permanent atrial fibrillation. She does not appear to be overly symptomatic currently with better heart rate control. Can change metoprolol to 50 mg twice daily on discharge. Continue anticoagulation for stroke risk reduction. She is interested in taking Eliquis on discharge. 2. Hypertension: Blood pressure normotensive to mildly hypertensive. Continue beta-lee. Can titrate medications as appropriate. 3. Edema: She has varicose veins and likely has venous insufficiency. She does not appear hypervolemic. Her proBNP is not significantly elevated. 4. Disposition: Follow-up in the cardiology office in 1-2 weeks following discharge. Plan of care was communicated with Dr. Carmona, primary hospitalist. Admission and Anticipated Discharge Date Admission Date: June 10, 2020 Subjective She was seen earlier this morning. She feels well. She denies chest pain, shortness of breath, syncope, near-syncope, palpitations, or edema. She denies bleeding. She would like to go home today. Heart rate has improved on metoprolol. Diltiazem drip was weaned off. Review of systems: As above. Physical Exam Physical Exam: Gen.: No acute distress. Alert and oriented. HEENT: Anicteric sclera. Neck: No significant JVD. Cardiac: No ventricular heave. Irregularly irregular with adequate rate control. Normal S1-S2. No murmurs, rubs, or gallops. Pulmonary: Clear to auscultation bilaterally without wheezes, rales, or rhonchi. Abdomen: Soft, nontender, nondistended, with normoactive bowel sounds. No bruits noted. Extremities: 2+ radial pulses bilaterally. 2+ posterior tibialis pulses vinnie aterally. No pitting edema or cyanosis. Bilateral lower extremity varicose veins. Psychiatric: Affect appears appropriate. Results & Data ([facility]) Vital Signs (Past 12 Hours) Vital Signs Temp Pulse Pulse Resp BP BP Pulse Ox 06/12/20 08:16 97 H 06/12/20 08:13 36.7 C 101 H 18 155/88 H 96 06/12/20 05:33 92 H 06/12/20 03:00 36.5 C 20 134/92 94 06/11/20 23:26 36.4 C L 72 18 153/93 H 91 Intake & Output 06/10/20 06/11/20 06/12/20 06/13/20 06:59 06:59 06:59 06:59 Intake Total 893.634 / 289.273 4345.283 / Output Total 900 / 900 1525 / 1525 Balance -6.366 / -6.366 488.283 / 488.283 Weight 75.4 kg 72.2 kg Laboratory Results Laboratory Results - last 24 hr 06/12/20 05:09 APTT 28.7 PTT Ratio 1.0 Medications Administered Current Inpatient Medications Acetaminophen (Acetaminophen 325 Mg Tab) 650 mg PO Q4H PRN PRN Reason: Pain or Fever Stop: 07/10/20 18:58 Last Admin: 06/11/20 04:53 Dose: 650 mg Documented by: Apixaban (Apixaban 5 Mg Tablet) 5 mg PO BID [facility] Stop: 07/11/20 20:59 Last Admin: 06/12/20 07:53 Dose: 5 mg Documented by: Ascorbic Acid (Ascorbic Acid 500 Mg Tab) 500 mg PO DAILY [facility] Stop: 07/11/20 08:59 Last Admin: 06/12/20 07:54 Dose: 500 mg Documented by: Folic Acid (Folic Acid 400 Mcg Tab) 400 mcg PO DAILY [facility] Stop: 07/11/20 08:59 Last Admin: 06/12/20 07:54 Dose: 400 mcg Documented by: Diltiazem HCl 125 mg/ Dextrose 125 mls @ 0 mls/hr IV .Q0M [facility]; Protocol Stop: 07/10/20 17:14 Last Titration: 06/12/20 00:04 Dose: 0 mg/hr, 0 mls/hr Documented by: Metoprolol Tartrate (Metoprolol Tartrate 25 Mg Tab) 25 mg PO Q6 [facility] Stop: 07/11/20 14:59 Last Admin: 06/12/20 06:24 Dose: 25 mg Documented by: Miscellaneous (*Estriol-Progesterone*Order Awaiting Action) 1 ea N/A QS [facility] Stop: 07/11/20 00:00 Last Admin: 06/12/20 07:41 Dose: Not Given Documented by: Ondansetron HCl (Ondansetron Inj 2 Mg/Ml 2 Ml Vial) 4 mg IV Q6H PRN PRN Reason: Nausea Stop: 07/10/20 18:58 Thyroid ([place] Thyroid 30 Mg Tab) 60 mg PO DAILY [facility] Stop: 07/11/20 08:59 Last Admin: 06/11/20 08:02 Dose: 60 mg Documented by: Trolamine Salicylate (Trolamine Salicylate 10% Crm 255 Appln/85 Gm Tube) 1 appln EXT Q6H PRN PRN Reason: pain Stop: 07/10/20 20:53 Last Admin: 06/12/20 07:56 Dose: 1 appln Documented by: Vitamin D (Cholecalciferol 1,000 Units 25 Mcg Tab) 5,000 units PO DAILY [facility] Stop: 07/11/20 08:59 Last Admin: 06/12/20 07:54 Dose: 5,000 units Documented by: PG Care Time/CCT Total # of Minutes Spent Total Time Spent with Patient: Total time spent is greater than 50% in co ordination of care (as documented) at patient's floor/unit and/or counseling patient: Coding Level of Care Code 15246 Subseq Hosp Care Lvl 3 Diagnoses Paroxysmal atrial fibrillation I48.0 Hypertension I10 Edema R60.9
[2020-06-12] MEDS: ARMOUR THYROID 30 MG TAB PO SCH (11:41)
--- NOTE | 2020-06-12 16:49 | Discharge Summary ---
Date of Service June 12, 2020 Admission HPI Per Admitting Provider 80yo female with history of PAF who presents with LE edema starting about 1 week ago, rapid heart rates (140s to 170s at fastest), and weight gain of about 5 pounds initially (gained the weight, then the weight came down). She noted exertional fatigue this week as well. Does have history of PAF and was encouraged to take eliquis but she declined such. This was 3-4 years ago. Since that hospitalization for PAF she has not followed up with cardiology. No chest pain, orthopnea, or PND. For her LE edema she has used compression hose, icy hot, and benadryl. Has h/o hyperthyroidism / Graves disease and her thyroid medication was reduced 1 month ago (from 75mg to 60mg). Principal Diagnosis Atrial fibrillation Discharge Exam Constitutional WD/WN, vitals as above Eyes EOM intact bilaterally; no conjunctival abnormality ENMT external ear and nose normal, oropharynx normal Neck trachea midline, no thyromegaly normal visual inspection Respiratory normal respiratory effort, lungs clear to auscultation no respiratory distress Cardiovascular Rate/Rhythm: regular rate and + irregularly irregular Gastrointestinal (Abdomen) Inspection/Auscultation: abdomen normal to inspection; abdomen not distended Musculoskeletal no cyanosis or clubbing, extremities motor strength 5/5 Skin no rashes, warm and dry Neurologic moves all extremities and awake Psychiatric Orientation: alert, oriented to person and cooperative Discharge Data Allergies Allergy/AdvReac Type Severity Reaction Status Date / Time Cephalosporins Allergy Unknown UNKNOWN Verified 06/02/20 12:51 Sulfa (Sulfonamide Allergy Unknown Verified 06/02/20 12:51 Antibiotics) wheat Allergy Unknown Verified 06/02/20 12:51 cephalexin [From Keflex] Allergy Verified 06/02/20 12:51 Consultations 06/10/20 15:47 Consult Cardiology Stat 06/10/20 16:01 ED Decision to Admit Stat 06/10/20 19:15 Consult Case Management - Discharge Planning Routine Hospital Course (1) PAF (paroxysmal atrial fibrillation): H/o PAF 2016. - Discharged on metoprolol 50 mg PO BID - Discharged on Eliquis for anticoagulation (2) Acute CHF (congestive heart failure): Patient received Lasix 20 mg IV x 1 without any sign of continued hypervolemia. Echo on 06/11 showed EF 50-55% with mild LVH. - Discharged off Lasix with cardiology approval. (3) Hypothyroidism: Dose of armour thyroid was reduced 1 month ago from 75mg to 60mg. Despite such TSH still mildly depressed today. - Consider further reduction by PCP. (4) Hypertension: BPs markedly elevated at presentation, but normalized by discharge. - Beta lee as above. (5) DVT prophylaxis: Eliquis Total Time Total Time Spent Total Time Spent (In Minutes): 35 Discharge Plan Discharge Items Patient Disposition: Home - Self-Care Reason For Visit: RAPID AFIB Discharge Diagnosis: Atrial fibrillation with rapid heart rate Activity: Resume your previous activity Non-emergency contact: Primary Care Provider and Inserter Operator Call non-emergency contact if: your symptoms worsen Follow-up/Referrals: Ferny Batres MD [Physician] - (Please see Dr. Batres in 1-2 weeks for follow up.) Earnest Carmona DO [Primary Care Provider] - Diet: Heart Healthy Addtl Attending Provider Instructions: You were admitted to the hospital with a rapid heart rate called atrial fibrillation. You had this once before, but your heart went back into the normal rhythm on its own (called sinus rhythm). This time your heart has stayed in atrial fibrillation. Using medications we helped slow it down to an acceptable rate. The veneer sorter, Dr. Dandre Batres, also helped us adjust your medication dosages. We are sending you out on two different medications: 1) Eliquis -> This is a blood thinner that will help prevent strokes. Atrial fibrillation increases the risk of stroke due to blood pooling in the upper chamber of the heart, and Eliquis will help prevent this from happening. 2) Metoprolol -> This is a medication that reduces the heart rate. In atrial fibrillation, the heart has a tendency to beat too fast which can cause a variety of problems. So, this medication helps slow the heart down and keep your heart healthy. Both of these medications are two times per day. You received your AM doses for both of these, so you will need to pick these up today and take your evening dose tonight. Pending Studies at Discharge: No Stand-Alone Forms: [employer], Smoking Cessation Medications and DC Order Prescriptions: New Eliquis 5 mg Tablet 5 mg PO BID Qty: 60 RF: 0 metoprolol tartrate 50 mg tablet 50 mg PO BID Qty: 60 RF: 1 Continued estriol/progesterone cream 1 ml topical .[id number] Qty: 30 RF: 11 thyroid (pork) [[place] Thyroid] 60 mg tablet 60 mg PO DAILY Qty: 30 RF: 5 omega-3 fatty acids 500 mg capsule 500 mg PO DAILY RF: 0 vitamin A 8,000 unit capsule 8,000 units PO DAILY RF: 0 vitamin E 600 unit capsule 600 units PO DAILY RF: 0 coenzyme Q10 400 mg capsule 400 mg PO DAILY RF: 0 ascorbic acid (vitamin C) 500 mg tablet 500 mg PO DAILY RF: 0 alpha lipoic acid 600 mg capsule 600 mg PO DAILY RF: 0 folic acid 400 mcg tablet 400 mcg PO DAILY RF: 0 minerals Tablet 1 tab PO DAILY RF: 0 cholecalciferol (vitamin D3) [Vitamin D3] 125 mcg (5,000 unit) Tablet 125 mcg PO DAILY RF: 0 Discharge Orders: Discharge Order (Routine); Ordered 06/12/20 Ordered By: Tobias Carmona Admission Data Admit Date/Time: 06/10/20 17:16 Attending Provider: Tobias Carmona Admit Provider: Richardson Moy Primary Care Provider: Earnest Carmona Other Providers: Ferny Batres ; Tobias Carmona Other Interventions: Discharge Summary Assessment (RN) Last Done: 06/12/20 11:02 Coding Level of Care Code D/C Day Management >30 mins Diagnoses PAF (paroxysmal atrial fibrillation) I48.0 Acute CHF (congestive heart failure) I50.9 Hypothyroidism E03.9 Hypertension I10 DVT prophylaxis Z29.9
--- NOTE | 2020-06-24 15:24 | Coding Query ---
CONGESTIVE HEART FAILURE To Promote full compliance with coding requirements relating to patient care, physician participation is requested in all cases of contour grinder uncertainty. Please assist us with the following questions. A diagnosis of Congestive Heart Failure is documented in the patient's medical record. To accurately code this diagnosis and to compare patient severity, we ask that you specify the type of heart failure by placing an X within the parenthesis (x). 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 Please check the appropriate box: ( x ) Present on Admission ( ) Not Present On Admission ( ) Clinically undetermined Thank you Bennie HUERTA
== END 2020-06-12 13:43 | disposition home or self-care (01) | DRG 308 ==
LOC: ED 14:35 → SUATTDRO 17:16 → 2S 17:16

== ENCOUNTER 2024-07-13 04:26 | Observation (INO) ==
--- NOTE | 2024-07-13 04:55 | Emergency Department Note ---
History of Present Illness General Chief complaint: Headache Stated complaint: Headache, Neck Pain, Dental Pain Time Seen by Provider: 07/13/24 04:30 Source: patient, EMS and RN notes reviewed History of Present Illness Provider complaint: Headache confusion 84-year-old female presents emergency department reporting that she woke up 2 hours ago and started having headache. She denies any falls or traumas. Denies any fevers. No nausea or vomiting. Patient is not oriented to time or place. She states she is not sure when she went to bed. Home Medications Medication Instructions Recorded Confirmed Type omega-3 fatty acids 500 mg capsule 500 mg PO DAILY 04/04/19 07/02/24 History vitamin A 2,400 mcg capsule 8,000 units PO DAILY 04/04/19 07/02/24 History ascorbic acid (vitamin C) 500 mg 500 mg PO DAILY 06/15/19 07/02/24 History tablet coenzyme Q10 400 mg capsule 400 mg PO DAILY 06/15/19 07/02/24 History vitamin E 600 unit capsule 600 units PO DAILY 06/15/19 07/02/24 History folic acid 400 mcg tablet 400 mcg PO DAILY 10/23/19 07/02/24 History cholecalciferol (vitamin D3) 15,000 unit PO 07/24/23 07/02/24 History magnesium PO DAILY 07/24/23 07/02/24 History digoxin 125 mcg (0.125 mg) tablet 125 mcg PO DAILY #90 tabs 07/25/23 07/02/24 Rx thyroid (pork) 90 mg tablet 90 mg PO DAILY #90 tabs 02/14/24 07/02/24 Rx ([place] Thyroid) estradiol 0.01% (0.1 mg/gram) 1 g vaginal 2XWK #42.5 grams 06/23/24 07/02/24 Rx vaginal cream estriol/progesterone 1 ml topical .23 days #30 mL 06/23/24 07/02/24 Rx verapamil 120 mg 24 hr See Rx Instructions .Route 07/02/24 07/02/24 Rx capsule,extended release .COMPLEX #270 caps Allergies Allergy/AdvReac Type Severity Reaction Status Date / Time suture Allergy Intermediate Verified 07/02/24 10:58 Cephalosporins Allergy Unknown UNKNOWN Verified 07/02/24 10:58 Sulfa (Sulfonamide Allergy Unknown Unknown Verified 07/02/24 10:58 Antibiotics) wheat Allergy Unknown Gastrointestinal Verified 07/02/24 10:58 Upset aspirin Allergy BLEEDING Verified 07/02/24 10:58 cephalexin [From Keflex] Allergy Unknown Verified 07/02/24 10:58 gluten Allergy Unknown Verified 07/02/24 10:58 NIGHTSHADE VEGETABLES Allergy Unknown Unknown Uncoded 07/02/24 10:58 Past Med/Surg History Problem List (Updated 07/13/24 @ 06:51 by Estuardo Joaquin MD) Acute UTI (Acute) Stroke (Acute) Hearing loss Cerumen impaction Positional lightheadedness Cystocele, midline #5 ring pessary 11/15/23 Hypertension (Acute) Hypothyroidism (Acute) Iron deficiency anemia due to chronic blood loss (Acute) Thyrotoxicosis (Acute) Presence of pessary H/O deep venous thrombosis (2009) right History of pulmonary embolism (2009) History of Graves' disease DVT prophylaxis Edema Fatigue Atrial fibrillation, permanent Mitral regurgitation Routine health maintenance Medical History Elevated TSH Atrial fibrillation with rapid ventricular response Venous insufficiency (chronic) (peripheral) Urinary urgency Trigger finger Somatic dysfunction of lower extremities Segmental and somatic dysfunction of upper extremity Segmental and somatic dysfunction of thoracic region Segmental and somatic dysfunction of rib cage Segmental and somatic dysfunction of lumbar region Segmental and somatic dysfunction of abdomen and other regions Sacral region somatic dysfunction Right shoulder pain Prolapse of vaginal royal Postural imbalance Postmenopausal atrophic vaginitis Pelvic somatic dysfunction Osteopenia Hormone replacement therapy (HRT) Fatigue Edema Dyslipidemia Chronic back pain Cervical somatic dysfunction Abdominal bloating Surgical History History of cystoscopy 10/15/97 History of biopsy 08/09/99 - Endometrial bx: weakly proliferative endometrium; 08/13/96 - Endometrial bx:atrophy; 10/09/94 - Endometrial bx: benign History of cataract surgery 06/03/13 - left eye; 12/27/10 - right eye History of appendectomy History of cholecystectomy History of colonoscopy 06/12/12; 03/28/02 History of repair of rotator cuff Family History Father Myocardial infarction Mother Uterine cancer Sister Leukemia Other Arthritis Heart disease Hypertension Denies family history of Ovarian cancer Prostate cancer Breast cancer Colorectal cancer Social History Smoking Status: Former smoker Second Hand Exposure: No; Do You Dip or Chew Tobacco: No; Hx Alcohol Use: No Hx Substance Use: No Preferred Language: German Communication Ability: Effective Visual Impairment: Limited Hearing Ability: Normal 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 Beliefs That Will Affect Care: None marital status: Current Living Situation: Spouse Current Living Situation Comment: lives in [place] 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, 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 How many Children do You have: 3 How many Children do You have Comment: 1 son, 2 daughters Feels Safe at Home: Yes Childhood Exposure to Second-Hand Smoke: No Diet: regular caffeine: Yes during the past year weight has: remained stable Dental Care, Regularly: Yes Physical Activity Frequency: 1-2 Times per Week Seatbelt Use: always Sunscreen Use: No Assistive Devices: Glasses Physical Exam Vital Signs Vital Signs - 24 hr 07/13/24 04:27 07/13/24 04:30 07/13/24 04:31 Temperature Source Oral Pulse Rate 86 79 Pulse Rate [Apical] 75 Pulse Rate from SpO2 Sensor Respiratory Rate 18 17 Respiratory Effort / Characteristics Non-Labored Spontaneous Respiratory Depth Normal Respiratory Pattern Regular Blood Pressure 169/87 H Blood Pressure [Right Arm] 169/87 H Blood Pressure Mean 123 Blood Pressure Mean [Right Arm] 114 Pulse Oximetry 95 95 Oxygen Delivery Method Room Air Room Air Sepsis Recent Fever Within 48 Hours Sepsis New/Unexplained Change in Mental Status Sepsis Action Taken by Nursing 07/13/24 04:37 07/13/24 05:21 07/13/24 05:30 Temperature Source Pulse Rate 79 78 Pulse Rate [Apical] Pulse Rate from SpO2 Sensor 76 77 Respiratory Rate 17 16 Respiratory Effort / Characteristics Respiratory Depth Respiratory Pattern Blood Pressure 171/72 H 160/69 H Blood Pressure [Right Arm] Blood Pressure Mean 105 93 Blood Pressure Mean [Right Arm] Pulse Oximetry 95 95 Oxygen Delivery Method Room Air Room Air Room Air Sepsis Recent Fever Within 48 Hours No Sepsis New/Unexplained Change in Mental Status No Sepsis Action Taken by Nursing No Action Required Physical Exam HENT: Exam performed. - Head: Normocephalic and atraumatic. EYES: Conjunctivae and EOM are normal. Right eye exhibits no discharge. Left eye exhibits no discharge. No scleral icterus. NECK: Normal range of motion. Neck supple. No JVD present. CV: Normal rate, irregular rhythm, normal heart sounds and intact distal pulses. There is no peripheral edema. Palpable radial pulses bue. PULM/CHEST: Effort normal and breath sounds normal. No respiratory distress. No stridor. no wheezes. no rales. ABD: The abdomen is soft. There is no tenderness. NEURO: Patient is not oriented to time or place. Mild expressive aphasia. NIHSS 2 (1b:1, 9:1) Course Course 0430: The patient was evaluated in room A2. A complete history and physical exam was performed Cardiac monitoring: An order was placed for continuous cardiac monitoring. The monitor shows a rate of 70 with atrial fibrilation rhythm interpreted by me No code stroke called as the exact last well-known normal is not known and the patient woke up with her symptoms, she is not a candidate for TNK. 0645: Vital signs stable. Labs show possible UTI. Cipro ordered for the patient. Imaging shows possible stroke on CT angio head. Patient's son Xavier was contacted [phone] and updated about the CT results showing a possible stroke. [facility] team [facility]. Administered Medications Discontinued Medications Ioversol (Optiray 320 125ml) 119 ml IV ONCE ONE Stop: 07/13/24 05:16 Last Admin: 07/13/24 05:16 Dose: 119 ml Documented By: JULIANA Medical Decision Making Laboratory Data Attestation: I reviewed the patient's lab results. 07/13/24 04:38 07/13/24 04:38 Lab Results 07/13/24 07/13/24 07/13/24 Range/Units 04:38 04:48 06:15 WBC 9.22 (4.8-10.8) K/ul RBC 4.09 L (4.20-5.40) M/uL Hgb 11.2 L (12.0-16.0) g/dl Hct 35.3 L (37.0-47.0) % MCV 86.3 (80.0-100.0) fL MCH 27.4 (25.0-34.0) pg MCHC 31.7 L (32.0-36.0) g/dL RDW Std Deviation 47.7 H (36.4-46.3) fL RDW Coeff of Burak 15.0 H (11.5-14.5) % Plt Count 264 (130-400) K/uL MPV 10.5 (9.4-12.4) fL Immature Gran % (Auto) 0.3 % Neut % (Auto) 65.0 % Lymph % (Auto) 22.3 % Haskell % (Auto) 8.4 % Eos % (Auto) 3.5 % Baso % (Auto) 0.5 % Neut # (Auto) 5.99 (1.40-6.50) K/uL Lymph # (Auto) 2.06 (1.20-3.40) K/uL Haskell # (Auto) 0.77 H (0.11-0.59) K/uL Eos # (Auto) 0.32 (0.00-0.50) K/uL Baso # (Auto) 0.05 (0.00-0.20) K/uL Immature Gran # (Auto) 0.03 (0.01-0.20) K/uL PT 11.2 (9.0-12.0) Seconds INR 1.0 (0.9-1.1) APTT 25 (21-31) Seconds PTT Ratio 0.9 Sodium 139 (136-145) mmol/L Potassium 3.7 (3.5-5.1) mmol/L Chloride 103 (98-107) mmol/L Carbon Dioxide 29 (21-32) mmol/L Anion Gap 7 (3-11) BUN 14 (6-23) mg/dl Creatinine 0.74 (0.6-1.2) mg/dl Est Cr Clr Drug Dosing 54.0 ml/min Est GFR ( Amer) 85.6 ml/min Est GFR (Non-Af Amer) 73.9 ml/min BUN/Creatinine Ratio 18.9 (10-20) Glucose 119 H (70-99(Fasting)) mg/dl Calcium 10.1 (8.6-10.3) mg/dl Magnesium 1.9 (1.7-2.4) mg/dl Total Bilirubin 0.5 (0.2-1.0) mg/dl AST 20 (13-39) U/L ALT 18 (7-52) U/L Alkaline Phosphatase 77 (34-104) U/L Troponin I High Sens 4.7 (0-14) pg/ml Total Protein 7.6 (6.0-8.3) gm/dl Albumin 4.3 (3.4-5.0) gm/dl Globulin 3.3 (2.5-4.0) gm/dl Albumin/Globulin Ratio 1.3 (0.9-2) Urine Color Yellow Urine Appearance Clear (Clear) Urine pH 8.0 H (4.5-7.5) Ur Specific Gracey 1.026 (1.000-1.030) Urine Protein Negative (Negative) Urine Glucose (UA) Negative (Negative) Urine Ketones Negative (Negative) Urine Blood Negative (Negative) Urine Nitrite Negative (Negative) Urine Bilirubin Negative (Negative) Urine Urobilinogen Negative (Negative) Ur Leukocyte Esterase 2+ H (Negative) Urine WBC (Auto) 11-20 H (0-5) /hpf Urine RBC (Auto) 0-2 (0-2) /hpf U Hyaline Cast (Auto) 0-2 (0-2) /lpf U Epithel Cells (Auto) 0-2 (0-2) /hpf Urine Bacteria (Auto) 2+ H (None Seen) Blood Type A Positive Antibody Screen NEGATIVE Imaging Data Attestation: I personally reviewed and interpreted this imaging study as follows: My Impression: Chest x-ray negative. Airway clear. No pneumothorax. No consolidation. cardiomegaly no cephalization.. No free air under the diaphragm. No fractures of the skeletal structures. Radiologist's Impression: Head CT 07/13/24 04:37 CR Exam(s): CT HEAD Without Contrast EXAM: CT Head Without Intravenous Contrast CLINICAL HISTORY: Reason for exam: neuro deficit, acute stroke suspected. TECHNIQUE: Axial computed tomography images of the head/brain without intravenous contrast. CTDI is 35.65 mGy and DLP is 624.41 mGy-cm. Automated exposure control was utilized for the study. A dose lowering technique was utilized adhering to the principles of ALARA. COMPARISON: No relevant prior studies available. FINDINGS: Brain: Small dural based calcified lesion in the left middle cranial fossa most likely a small meningioma. No hemorrhage. No significant white matter disease. No edema. Ventricles: Unremarkable. No ventriculomegaly. Bones/joints: Unremarkable. No acute fracture. Soft tissues: Unremarkable. Sinuses: Unremarkable as visualized. No acute sinusitis. Mastoid air cells: Right mastoid effusion. IMPRESSION: No evidence of acute intracranial pathology. Communications: Call Doctor Stroke Electronically signed by: Jyoti Marquez MD 07/13/24 06:13 AM Head CTA 07/13/24 04:37 CR Exam(s): CTA HEAD With Contrast IV Amt: 119 ml opti 320 EXAM: CT Angiography Head With Intravenous Contrast CLINICAL HISTORY: Reason for exam: neuro deficit, acute stroke suspected. TECHNIQUE: Axial computed tomographic angiography images of the head with intravenous contrast. CTDI is 35.65 mGy and DLP is 624.41 mGy-cm. Automated exposure control was utilized for the study. A dose lowering technique was utilized adhering to the principles of ALARA. MIP reconstructed images were created and reviewed. CONTRAST: Patient received 119 ml opti 320 of IV contrast COMPARISON: No relevant prior studies available. FINDINGS: The dural venous sinuses are patent. Right internal carotid artery: No acute findings. Intracranial segment is patent with no significant stenosis. No aneurysm. Right anterior cerebral artery: Unremarkable. No occlusion or significant stenosis. No aneurysm. Right middle cerebral artery: Unremarkable. No occlusion or significant stenosis. No aneurysm. Right posterior cerebral artery: Unremarkable. No occlusion or significant stenosis. No aneurysm. Right vertebral artery: Unremarkable as visualized. Left internal carotid artery: No acute findings. Intracranial segment is patent with no significant stenosis. No aneurysm. Left anterior cerebral artery: Unremarkable. No occlusion or significant stenosis. No aneurysm. Left middle cerebral artery: Unremarkable. No occlusion or significant stenosis. No aneurysm. Left posterior cerebral artery: There is an abrupt high-grade stenosis of the distal P1 segment with diminished enhancement of the distal vessel. No aneurysm. Left vertebral artery: Unremarkable as visualized. Basilar artery: Unremarkable. No occlusion or significant stenosis. No aneurysm. IMPRESSION: There is an abrupt high-grade stenosis of the distal left P1 segment with diminished enhancement of the distal vessel concerning for acute thromboembolic disease. Communications: Verify Receipt Call Doctor Stroke Electronically signed by: Jyoti Marquez MD 07/13/24 06:26 AM Neck CTA 07/13/24 04:37 CR Exam(s): CTA NECK With Contrast IV Amt: 119 ml opti 320 EXAM: CT Angiography Neck With Intravenous Contrast CLINICAL HISTORY: Reason for exam: neuro deficit, acute stroke suspected. TECHNIQUE: Routine carotid CT angiography protocol was performed with intravenous contrast. NASCET criteria using the distal ICAs for comparison were used for evaluation of stenoses. CTDI is 35.65 mGy and DLP is 624.41 mGy-cm. Automated exposure control was utilized for the study. A dose lowering technique was utilized adhering to the principles of ALARA. MIP reconstructed images were created and reviewed. CONTRAST: Patient received 119 ml opti 320 of IV contrast COMPARISON: None. FINDINGS: VASCULATURE: Right common carotid artery: Unremarkable. No occlusion or significant stenosis. No dissection. Right internal carotid artery: Unremarkable. Extracranial segment is patent with no occlusion or significant stenosis. No dissection. Right external carotid artery: Unremarkable. No occlusion. Right vertebral artery: Unremarkable. No occlusion or significant stenosis. No dissection. Left common carotid artery: Unremarkable. No occlusion or significant stenosis. No dissection. Left internal carotid artery: Unremarkable. Extracranial segment is patent with no occlusion or significant stenosis. No dissection. Left external carotid artery: Unremarkable. No occlusion. Left vertebral artery: Unremarkable. No occlusion or significant stenosis. No dissection. NECK: Bones/joints: There is a critical spinal canal stenosis at C6-7. Recommend MRI of the cervical spine to evaluate for myelopathy. No acute fracture. Soft tissues: Findings concerning for esophagitis. Lung apices: Clear. CAROTID STENOSIS REFERENCE USING NASCET CRITERIA: % ICA stenosis = (1 - narrowest ICA diameter/diameter of distal cervical ICA) x 100. Mild - <50% stenosis. Moderate - 50-69% stenosis. Severe - 70-94% stenosis. Near occlusion - 95-99% stenosis. Occluded - 100% stenosis. IMPRESSION: Negative CTA neck. Communications: Verify Receipt Call Doctor Stroke Electronically signed by: Jyoti Marquez MD 07/13/24 06:16 AM ECG Data Attestation: I personally reviewed and interpreted this ECG as follows: Rate (beats per minute): 71 Rhythm: + atrial fibrillation ECG Intervals/blocks: + Normal QRS and + Normal QT-c ECG ST segments: + Normal ST segments MDM Narrative 0430: The patient was evaluated in room A2. A complete history and physical exam was performed Cardiac monitoring: An order was placed for continuous cardiac monitoring. The monitor shows a rate of 70 with atrial fibrilation rhythm interpreted by me No code stroke called as the exact last well-known normal is not known and the patient woke up with her symptoms, she is not a candidate for TNK. 0645: Vital signs stable. Labs show possible UTI. Cipro ordered for the patient. Imaging shows possible stroke on CT angio head. Patient's son Xavier was contacted [phone] and updated about the CT results showing a possible stroke. Patient will be admitted to the [facility] hospitalist team. Dr. Bains's team notified. Impression & Plan Stroke, Acute UTI Discharge Plan Visit Data Chief Complaint: Headache Stated Complaint: Headache, Neck Pain, Dental Pain ED Provider: Estuardo Joaquin Discharge Problem: Stroke, Acute UTI Patient Disposition: Admitted As Inpatient Forms Stand Alone Forms: My [facility] Prescriptions Prescriptions: No Action thyroid (pork) [[place] Thyroid] 90 mg tablet 90 mg PO DAILY Qty: 90 3RF omega-3 fatty acids 500 mg capsule 500 mg PO DAILY vitamin A 8,000 unit capsule 8,000 units PO DAILY vitamin E 600 unit capsule 600 units PO DAILY coenzyme Q10 400 mg capsule 400 mg PO DAILY ascorbic acid (vitamin C) 500 mg tablet 500 mg PO DAILY cholecalciferol (vitamin D3) 15,000 unit PO magnesium PO DAILY digoxin 125 mcg (0.125 mg) tablet 125 mcg PO DAILY Qty: 90 3RF folic acid 400 mcg tablet 400 mcg PO DAILY estradiol 0.01 % (0.1 mg/gram) cream 1 g vaginal 2XWK Qty: 42.5 3RF Rx Instructions: Insert 1/4 applicatorful vaginally 2 time a week. estriol/progesterone 1 ml topical .23 days Qty: 30 6RF Rx Instructions: 1 mL topical; 23 days per month verapamil 120 mg capsule,ext rel. pellets 24 hr See Rx Instructions .ROUTE .COMPLEX Qty: 270 3RF Rx Instructions: Take 1 capsule by mouth each morning, take 2 tablets by mouth each evening Referrals Referrals: Aaron Thornton DO [Primary Care Provider] - Discharge Problem: Stroke Qualifiers: CVA mechanism: unspecified Qualified Code(s): I63.9 - Cerebral infarction, unspecified
[2024-07-13 05:07] LABS: Basophils # (auto) 0.05 K/uL (0.00-0.20); Basophils % (auto) 0.5 %; Eosinophils # (auto) 0.32 K/uL (0.00-0.50); Eosinophils % (auto) 3.5 %; Hematocrit (blood only) 35.3 % (37.0-47.0); Hemoglobin 11.2 g/dl (12.0-16.0); Immature Granulocytes # (auto) 0.03 K/uL (0.01-0.20); Immature Granulocytes % (auto) 0.3 %; Lymphocytes # (auto) 2.06 K/uL (1.20-3.40); Lymphocytes % (auto) 22.3 %; Mean Corpuscular Hemoglobin 27.4 pg (25.0-34.0); Mean Corpuscular Hgb Conc 31.7 g/dL (32.0-36.0); Mean Corpuscular Volume 86.3 fL (80.0-100.0); Mean Platelet Volume 10.5 fL (9.4-12.4); Monocytes # (auto) 0.77 K/uL (0.11-0.59); Monocytes % (auto) 8.4 %; Neutrophils # (auto) 5.99 K/uL (1.40-6.50); Platelet Count 264 K/uL (130-400); RDW Standard Deviation 47.7 fL (36.4-46.3); Red Blood Count 4.09 M/uL (4.20-5.40); White Blood Count 9.22 K/ul (4.8-10.8)
[2024-07-13 05:12] LABS: Albumin Globulin Ratio 1.3 (0.9-2); Albumin Level 4.3 gm/dl (3.4-5.0); BUN Creatinine Ratio 18.9 (10-20); Bilirubin,Total 0.5 mg/dl (0.2-1.0); Calcium 10.1 mg/dl (8.6-10.3); Est GFR (African American) 85.6 ml/min; Est GFR (Non-African American) 73.9 ml/min; Globulin 3.3 gm/dl (2.5-4.0); Magnesium 1.9 mg/dl (1.7-2.4); Potassium 3.7 mmol/L (3.5-5.1); Total Protein 7.6 gm/dl (6.0-8.3)
[2024-07-13] MEDS: OPTIRAY 320 125ml IV ONE (05:16)
[2024-07-13 05:17] LABS: Troponin I High Sensitivity 4.7 pg/ml (0-14)
[2024-07-13 05:34] LABS: Partial Thromboplastin Ratio 0.9; Partial Thromboplastin Time 25 Seconds (21-31); Prothrombin Time 11.2 Seconds (9.0-12.0)
--- NOTE | 2024-07-13 06:14 | CT Scan Report ---
Exam(s): CT HEAD Without Contrast EXAM: CT Head Without Intravenous Contrast CLINICAL HISTORY: Reason for exam: neuro deficit, acute stroke suspected. TECHNIQUE: Axial computed tomography images of the head/brain without intravenous contrast. CTDI is 35.65 mGy and DLP is 624.41 mGy-cm. Automated exposure control was utilized for the study. A dose lowering technique was utilized adhering to the principles of ALARA. COMPARISON: No relevant prior studies available. FINDINGS: Brain: Small dural based calcified lesion in the left middle cranial fossa most likely a small meningioma. No hemorrhage. No significant white matter disease. No edema. Ventricles: Unremarkable. No ventriculomegaly. Bones/joints: Unremarkable. No acute fracture. Soft tissues: Unremarkable. Sinuses: Unremarkable as visualized. No acute sinusitis. Mastoid air cells: Right mastoid effusion. IMPRESSION: No evidence of acute intracranial pathology. Communications: Call Doctor Stroke Electronically signed by: Jyoti Marquez MD 07/13/24 06:13 AM
--- NOTE | 2024-07-13 06:17 | CT Scan Report ---
Exam(s): CTA NECK With Contrast IV Amt: 119 ml opti 320 EXAM: CT Angiography Neck With Intravenous Contrast CLINICAL HISTORY: Reason for exam: neuro deficit, acute stroke suspected. TECHNIQUE: Routine carotid CT angiography protocol was performed with intravenous contrast. NASCET criteria using the distal ICAs for comparison were used for evaluation of stenoses. CTDI is 35.65 mGy and DLP is 624.41 mGy-cm. Automated exposure control was utilized for the study. A dose lowering technique was utilized adhering to the principles of ALARA. MIP reconstructed images were created and reviewed. CONTRAST: Patient received 119 ml opti 320 of IV contrast COMPARISON: None. FINDINGS: VASCULATURE: Right common carotid artery: Unremarkable. No occlusion or significant stenosis. No dissection. Right internal carotid artery: Unremarkable. Extracranial segment is patent with no occlusion or significant stenosis. No dissection. Right external carotid artery: Unremarkable. No occlusion. Right vertebral artery: Unremarkable. No occlusion or significant stenosis. No dissection. Left common carotid artery: Unremarkable. No occlusion or significant stenosis. No dissection. Left internal carotid artery: Unremarkable. Extracranial segment is patent with no occlusion or significant stenosis. No dissection. Left external carotid artery: Unremarkable. No occlusion. Left vertebral artery: Unremarkable. No occlusion or significant stenosis. No dissection. NECK: Bones/joints: There is a critical spinal canal stenosis at C6-7. Recommend MRI of the cervical spine to evaluate for myelopathy. No acute fracture. Soft tissues: Findings concerning for esophagitis. Lung apices: Clear. CAROTID STENOSIS REFERENCE USING NASCET CRITERIA: % ICA stenosis = (1 - narrowest ICA diameter/diameter of distal cervical ICA) x 100. Mild - <50% stenosis. Moderate - 50-69% stenosis. Severe - 70-94% stenosis. Near occlusion - 95-99% stenosis. Occluded - 100% stenosis. IMPRESSION: Negative CTA neck. Communications: Verify Receipt Call Doctor Stroke Electronically signed by: Jyoti Marquez MD 07/13/24 06:16 AM
--- NOTE | 2024-07-13 06:27 | CT Scan Report ---
Exam(s): CTA HEAD With Contrast IV Amt: 119 ml opti 320 EXAM: CT Angiography Head With Intravenous Contrast CLINICAL HISTORY: Reason for exam: neuro deficit, acute stroke suspected. TECHNIQUE: Axial computed tomographic angiography images of the head with intravenous contrast. CTDI is 35.65 mGy and DLP is 624.41 mGy-cm. Automated exposure control was utilized for the study. A dose lowering technique was utilized adhering to the principles of ALARA. MIP reconstructed images were created and reviewed. CONTRAST: Patient received 119 ml opti 320 of IV contrast COMPARISON: No relevant prior studies available. FINDINGS: The dural venous sinuses are patent. Right internal carotid artery: No acute findings. Intracranial segment is patent with no significant stenosis. No aneurysm. Right anterior cerebral artery: Unremarkable. No occlusion or significant stenosis. No aneurysm. Right middle cerebral artery: Unremarkable. No occlusion or significant stenosis. No aneurysm. Right posterior cerebral artery: Unremarkable. No occlusion or significant stenosis. No aneurysm. Right vertebral artery: Unremarkable as visualized. Left internal carotid artery: No acute findings. Intracranial segment is patent with no significant stenosis. No aneurysm. Left anterior cerebral artery: Unremarkable. No occlusion or significant stenosis. No aneurysm. Left middle cerebral artery: Unremarkable. No occlusion or significant stenosis. No aneurysm. Left posterior cerebral artery: There is an abrupt high-grade stenosis of the distal P1 segment with diminished enhancement of the distal vessel. No aneurysm. Left vertebral artery: Unremarkable as visualized. Basilar artery: Unremarkable. No occlusion or significant stenosis. No aneurysm. IMPRESSION: There is an abrupt high-grade stenosis of the distal left P1 segment with diminished enhancement of the distal vessel concerning for acute thromboembolic disease. Communications: Verify Receipt Call Doctor Stroke Electronically signed by: Jyoti Marquez MD 07/13/24 06:26 AM
[2024-07-13 06:33] LABS: Appearance Urine Clear (Clear); Bacteria Urine Automated 2+ (None Seen); Bilirubin Urine Negative (Negative); Blood Urine Negative (Negative); Cast Urine Automated 0-2 /lpf (0-2); Color Urine Yellow; Epithelial Cell Urine Auto 0-2 /hpf (0-2); Glucose Urine UA Negative (Negative); Ketones Urine Negative (Negative); Leukocyte Esterase Urine 2+ (Negative); Nitrite Urine Negative (Negative); Protein Urine Negative (Negative); RBC Urine Automated 0-2 /hpf (0-2); Specific Gravity Urine 1.026 (1.000-1.030); Urobilinogen Urine Negative (Negative)
[2024-07-13] MEDS: ASPIRIN 81 MG CHEW PO STA (06:59)
[2024-07-13] MEDS: CIPROFLOXACIN / D5W 400 MG/200 ML BAG IV STA (07:03)
--- NOTE | 2024-07-13 07:21 | History & Physical Report ---
Date of Service July 13, 2024 Assessment & Plan (1) Stroke: Plan: Patient presents with concern for acute thrombus in the left P1 segment. She is given aspirin in the ER consideration for anticoagulation. Neurology consult be undertaken. Patient has no focal neurological deficits she has been having decreased hearing out of her right ear but this predates this event for some time. She still has a frontal headache. She has no focal neurological loss of strength or sensation. She does have some crampiness to her lower extremities. Dr carbone did eval and recommends [facility] anticoagulation, is currently on heparin if stable after 24 hours consider transition to eliquis, also discussed stopping aspirin if anticoagulated re eval by neurology in am (2) Acute UTI: Plan: Abnormal urinalysis awaiting for culture continue ciprofloxacin Patient does wear a pessary for cystocele this was recently changed to typically also uses hormonal cream (3) Atrial fibrillation, permanent: Plan: Patient with history of A-fib, rate controlled on initial EKG. 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 Last cardiology visit, Srinivas Vázquez "Once again patient was strongly encouraged to resume Xarelto 20 mg daily to reduce her risk of stroke associated with A-Fib. Her [id number] score is 5 which corresponds with a 7.2 % yearly stroke risk. Patient is aware that she is at risk for stroke and other thromboembolic phenomena associated with atrial fibrillation." Patient cannot recall this conversation (4) Hypothyroidism: Plan: History of Graves' disease taking replacement thyroid dose will be continued History of Present Illness Primary Care Provider: Aaron Thornton DO 84-year-old female presents emergency department reporting that she woke up 2 hours prior to presentation due to a headache. She denies any falls or traumas. Denies any fevers. No nausea or vomiting. Stroke alert was not called by ER due to last time known well being unknown since she woke up with headache. There is concern on CT head of a high grade stenosis of the Left P1 segment with diminished enhancement of the distal vessel concerning for a acute thrombus the patient appeared well nourished and normally developed. Patient given aspirin Patient noted to have a normal urinalysis started on ciprofloxacin Patient has no new symptoms with exception of hearing loss out of her right ear. This predates her symptoms by weeks. She previously has had issues with allergies. Allergies Allergy/AdvReac Type Severity Reaction Status Date / Time suture Allergy Intermediate Verified 07/02/24 10:58 Cephalosporins Allergy Unknown UNKNOWN Verified 07/02/24 10:58 Sulfa (Sulfonamide Allergy Unknown Unknown Verified 07/02/24 10:58 Antibiotics) wheat Allergy Unknown Gastrointestinal Verified 07/02/24 10:58 Upset aspirin Allergy BLEEDING Verified 07/02/24 10:58 cephalexin [From Keflex] Allergy Unknown Verified 07/02/24 10:58 gluten Allergy Unknown Verified 07/02/24 10:58 NIGHTSHADE VEGETABLES Allergy Unknown Unknown Uncoded 07/02/24 10:58 Home Medications Medication Instructions Recorded Confirmed Type omega-3 fatty acids 500 mg capsule 500 mg PO DAILY 04/04/19 07/13/24 History vitamin A 2,400 mcg capsule 8,000 units PO DAILY 04/04/19 07/13/24 History ascorbic acid (vitamin C) 500 mg 500 mg PO DAILY 06/15/19 07/13/24 History tablet coenzyme Q10 400 mg capsule 400 mg PO DAILY 06/15/19 07/13/24 History vitamin E 600 unit capsule 600 units PO DAILY 06/15/19 07/13/24 History folic acid 400 mcg tablet 400 mcg PO DAILY 10/23/19 07/13/24 History cholecalciferol (vitamin D3) 1 cap PO DAILY 07/24/23 07/13/24 History magnesium 1 tab PO DAILY 07/24/23 07/13/24 History digoxin 125 mcg (0.125 mg) tablet 125 mcg PO DAILY #90 tabs 07/25/23 07/13/24 Rx thyroid (pork) 90 mg tablet 90 mg PO DAILY #90 tabs 02/14/24 07/13/24 Rx ([place] Thyroid) estradiol 0.01% (0.1 mg/gram) 1 g vaginal 2XWK #42.5 grams 06/23/24 07/13/24 Rx vaginal cream estriol/progesterone 1 ml topical DIRECTED 07/13/24 07/13/24 History verapamil 120 mg 24 hr 120 mg PO UD 07/13/24 07/13/24 History capsule,extended release Past Med/Surg History Problem List (Updated 07/13/24 @ 09:42 by Background Daemon) Acute UTI (Acute) Stroke (Acute) Hearing loss Cerumen impaction Positional lightheadedness Cystocele, midline #5 ring pessary 11/15/23 Hypertension (Acute) Hypothyroidism (Acute) Iron deficiency anemia due to chronic blood loss (Acute) Thyrotoxicosis (Acute) Presence of pessary H/O deep venous thrombosis (2010) right History of pulmonary embolism (2010) History of Graves' disease DVT prophylaxis Edema Fatigue Atrial fibrillation, permanent Mitral regurgitation Routine health maintenance Medical History Elevated TSH Atrial fibrillation with rapid ventricular response Venous insufficiency (chronic) (peripheral) Urinary urgency Trigger finger Somatic dysfunction of lower extremities Segmental and somatic dysfunction of upper extremity Segmental and somatic dysfunction of thoracic region Segmental and somatic dysfunction of rib cage Segmental and somatic dysfunction of lumbar region Segmental and somatic dysfunction of abdomen and other regions Sacral region somatic dysfunction Right shoulder pain Prolapse of vaginal royal Postural imbalance Postmenopausal atrophic vaginitis Pelvic somatic dysfunction Osteopenia Hormone replacement therapy (HRT) Fatigue Edema Dyslipidemia Chronic back pain Cervical somatic dysfunction Abdominal bloating Surgical History History of cystoscopy 10/15/97 History of biopsy 08/09/99 - Endometrial bx: weakly proliferative endometrium; 08/13/96 - Endometrial bx:atrophy; 10/09/94 - Endometrial bx: benign History of cataract surgery 06/03/13 - left eye; 12/27/10 - right eye History of appendectomy History of cholecystectomy History of colonoscopy 06/12/12; 03/28/02 History of repair of rotator cuff Family History Father Myocardial infarction Mother Uterine cancer Sister Leukemia Other Arthritis Heart disease Hypertension Denies family history of Ovarian cancer Prostate cancer Breast cancer Colorectal cancer Social History Smoking Status: Former smoker Second Hand Exposure: No; Do You Dip or Chew Tobacco: No; Hx Alcohol Use: No Hx Substance Use: No Preferred Language: Serbian Communication Ability: Effective Visual Impairment: Limited Hearing Ability: Normal 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 Beliefs That Will Affect Care: None marital status: Current Living Situation: Spouse Current Living Situation Comment: lives in [place] 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 Head exam is normocephalic atraumatic complains of a bifrontal headache no visual field changes Right tympanic membrane is some clear fluid behind the left is clear Neck is without JVD, thyromegaly, or carotid bruits. Lungs are clear to auscultation, no focal loss of breath sounds Cardiac exam, Rhythm is regular.. No murmurs, rubs or gallops. Abdominal exam reveals normal bowel sounds, soft non tender, no masses Extremities are nonedematous and both pedal pulses are present Neurologic exam is alert and oriented, no focal loss of strength or sensation Skin is without bruises or rashes Psychologically is without concerns for anxiety or depression.. Results & Data Results & Data Vital Signs (Past 12 Hours) Vital Signs Pulse Pulse Resp BP BP Pulse Ox O2 Del Method 07/13/24 05:30 78 16 160/69 H 95 Room Air 07/13/24 05:21 79 17 171/72 H 95 Room Air 07/13/24 04:37 Room Air 07/13/24 04:31 75 17 169/87 H 95 Room Air 07/13/24 04:30 79 18 169/87 H 95 Room Air 07/13/24 04:27 86 PG Care Time/CCT Total # of Minutes Spent Total Time Spent with Patient: Total time spent is greater than 50% in coordination of care (as documented) at patient's floor/unit and/or counseling patient: Coding Level of Care Code 46081 INT INP/OBS CARE 3/75MIN Diagnoses Stroke I63.9 CVA mechanism: unspecified Acute UTI N39.0 Atrial fibrillation, permanent I48.21 Acquired hypothyroidism E03.9 Hypothyroidism type: acquired (1) Stroke CVA mechanism: unspecified Qualified Code(s): I63.9 - Cerebral infarction, unspecified (4) Hypothyroidism Hypothyroidism type: acquired Qualified Code(s): E03.9 - Hypothyroidism, unspecified
--- NOTE | 2024-07-13 08:34 | XRay Report ---
XR chest 1V portable CLINICAL HISTORY: neuro deficit, acute stroke suspected TECHNIQUE: Single frontal radiograph of the chest was obtained. Comparison: Comparison is made to chest radiograph 01/25/2021 FINDINGS: No lines and tubes are seen. Cardiomegaly is noted. The aortic arch is calcified. The lungs are clear . No evidence of pleural effusion or pneumothorax. IMPRESSION: No acute chest disease. ACT 112: Negative or not required by law. Electronically signed by: Davin Dubois M.D. 07/13/2024 8:33 AM
[2024-07-13] MEDS ORDERED: ONDANSETRON INJ 2 MG/ML 2 ML VIAL IV PRN (09:52)
[2024-07-13] MEDS ORDERED: PHARMACIST DISCHARGE MED REC CONSULT PRN (09:52)
[2024-07-13] MEDS ORDERED: POLYETHYLENE (MIRALAX) 17 GM PACK PO PRN (09:52)
[2024-07-13] MEDS: DIGOXIN 0.125 MG TAB PO SCH (11:17)
[2024-07-13] MEDS: FOLIC ACID 400 MCG TAB PO SCH (11:18)
[2024-07-13] MEDS: ARMOUR THYROID 30 MG TAB PO SCH (11:18)
[2024-07-13] MEDS: ATORVASTATIN 40 MG TAB PO SCH (11:18)
[2024-07-13] MEDS: VERAPAMIL HCL 120 MG TABCR PO SCH (11:18)
[2024-07-13] MEDS: CIPROFLOXACIN 500 MG TAB PO SCH (11:18)
--- NOTE | 2024-07-13 11:36 | XCELERA ---
[id number]
--- NOTE | 2024-07-13 11:57 | Magnetic Resonance Report ---
MR brain wo con CLINICAL HISTORY: possible stroke left TECHNIQUE: Multiplanar and multisequence MR images of the brain were obtained without intravenous con trast. Comparison: Comparison is made to CT head and neck 07/13/2024 FINDINGS: There is restricted diffusion in the left parietotemporal lobes. The white matter is unremarkable. Th e ventricular system is normal in appearance. No mass is seen. There is no mass effect or midline isra ft. There is no evidence of acute intraparenchymal hemorrhage. No extra axial fluid collections are s een. The corpus callosum, pituitary gland, and cerebellar tonsils appear grossly unremarkable. Flow voids of the major intracranial arterial vessels are identified. The imaged portions of the para nasal sinuses, mastoid air cells, and orbits are unremarkable. IMPRESSION: Findings compatible with an acute infarct in the left UPPER CUTTER territory. ACT 112: Negative or not required by law. Electronically signed by: Davin Dubois M.D. 07/13/2024 11:56 AM
[2024-07-13] MEDS: HEPARIN SODIUM/DEXTROSE 25,000 UNITS/500 ML BAG IV SCH (12:07)
[2024-07-13] MEDS: HEPARIN SOD (PORCINE) 1000 UNIT/ML IV STA (12:08)
[2024-07-13] MEDS: Heparin IV Adult Wt-Based Standard w/ INITIAL Bolus Protocol IV SCH (12:56)
--- NOTE | 2024-07-13 14:05 | Neurology Consultation ---
Date of Consultation July 13, 2024 Assessment & Plan (1) Stroke: History of Present Illness Attending Physician: Tyler Mcneill MD History of Present Illness S: pt stable, mild headache. 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 Left P1 high grade stenosis. pt without weakness. per son, pt with some naming and occasional word finding issue. pt also left leg around the knee pain and cramps for about a week. pt with known atrial fib not on anticoagulation. Admission HPI:84-year-old female presents emergency department reporting that she woke up 2 hours prior to presentation due to a headache. She denies any falls or traumas. Denies any fevers. No nausea or vomiting. Stroke alert was not called by ER due to last time known well being unknown since she woke up with headache. There is concern on CT head of a high grade stenosis of the Left P1 segment with diminished enhancement of the distal vessel concerning for a acute thrombus the patient appeared well nourished and normally developed. Patient given aspirin Patient noted to have a normal urinalysis started on ciprofloxacin Patient has no new symptoms with exception of hearing loss out of her right ear. This predates her symptoms by weeks. She previously has had issues with allergies. Allergies Allergy/AdvReac Type Severity Reaction Status Date / Time suture Allergy Intermediate Verified 07/02/24 10:58 Cephalosporins Allergy Unknown UNKNOWN Verified 07/02/24 10:58 Sulfa (Sulfonamide Allergy Unknown Unknown Verified 07/02/24 10:58 Antibiotics) wheat Allergy Unknown Gastrointestinal Verified 07/02/24 10:58 Upset aspirin Allergy BLEEDING Verified 07/02/24 10:58 cephalexin [From Keflex] Allergy Unknown Verified 07/02/24 10:58 gluten Allergy Unknown Verified 07/02/24 10:58 NIGHTSHADE VEGETABLES Allergy Unknown Unknown Uncoded 07/02/24 10:58 Home Medications Medication Instructions Recorded Confirmed Type omega-3 fatty acids 500 mg capsule 500 mg PO DAILY 04/04/19 07/13/24 History vitamin A 2,400 mcg capsule 8,000 units PO DAILY 04/04/19 07/13/24 History ascorbic acid (vitamin C) 500 mg 500 mg PO DAILY 06/15/19 07/13/24 History tablet coenzyme Q10 400 mg capsule 400 mg PO DAILY 06/15/19 07/13/24 History vitamin E 600 unit capsule 600 units PO DAILY 06/15/19 07/13/24 History folic acid 400 mcg tablet 400 mcg PO DAILY 10/23/19 07/13/24 History cholecalciferol (vitamin D3) 1 cap PO DAILY 07/24/23 07/13/24 History magnesium 1 tab PO DAILY 07/24/23 07/13/24 History digoxin 125 mcg (0.125 mg) tablet 125 mcg PO DAILY #90 tabs 07/25/23 07/13/24 Rx thyroid (pork) 90 mg tablet 90 mg PO DAILY #90 tabs 02/14/24 07/13/24 Rx ([place] Thyroid) estradiol 0.01% (0.1 mg/gram) 1 g vaginal 2XWK #42.5 grams 06/23/24 07/13/24 Rx vaginal cream estriol/progesterone 1 ml topical DIRECTED 07/13/24 07/13/24 History verapamil 120 mg 24 hr 120 mg PO UD 07/13/24 07/13/24 History capsule,extended release Patient History Medical History Elevated TSH Atrial fibrillation with rapid ventricular response Venous insufficiency (chronic) (peripheral) Urinary urgency Trigger finger Somatic dysfunction of lower extremities Segmental and somatic dysfunction of upper extremity Segmental and somatic dysfunction of thoracic region Segmental and somatic dysfunction of rib cage Segmental and somatic dysfunction of lumbar region Segmental and somatic dysfunction of abdomen and other regions Sacral region somatic dysfunction Right shoulder pain Prolapse of vaginal royal Postural imbalance Postmenopausal atrophic vaginitis Pelvic somatic dysfunction Osteopenia Hormone replacement therapy (HRT) Fatigue Edema Dyslipidemia Chronic back pain Cervical somatic dysfunction Abdominal bloating Surgical History History of cystoscopy 10/15/97 History of biopsy 08/09/99 - Endometrial bx: weakly proliferative endometrium; 08/13/96 - Endometrial bx:atrophy; 10/09/94 - Endometrial bx: benign History of cataract surgery 06/03/13 - left eye; 12/27/10 - right eye History of appendectomy History of cholecystectomy History of colonoscopy 06/12/12; 03/28/02 History of repair of rotator cuff Family History Father Myocardial infarction Mother Uterine cancer Sister Leukemia Other Arthritis Heart disease Hypertension Denies family history of Ovarian cancer Prostate cancer Breast cancer Colorectal cancer Social History Smoking Status: Former smoker Second Hand Exposure: No; Do You Dip or Chew Tobacco: No; Hx Alcohol Use: No Hx Substance Use: No Preferred Language: Turkmen Communication Ability: Effective Visual Impairment: Limited Hearing Ability: Normal Cloth Sander Required: No Beliefs That Will Affect Care: None marital status: Current Living Situation: Spouse Current Living Situation Comment: lives in [place] 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, 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 How many Children do You have: 3 How many Children do You have Comment: 1 son, 2 daughters Feels Safe at Home: Yes Childhood Exposure to Second-Hand Smoke: No Diet: regular caffeine: Yes during the past year weight has: remained stable Dental Care, Regularly: Yes Physical Activity Frequency: 1-2 Times per Week Seatbelt Use: always Sunscreen Use: No Assistive Devices: Glasses Review of Systems Review of Systems: All systems reviewed & are unremarkable except as noted in Subjective Constitutional: as per Subjective / HPI Eyes: as per Subjective / HPI Ear, Nose, Mouth, Throat: as per Subjective / HPI Respiratory: as per Subjective / HPI Cardiovascular: as per Subjective / HPI Gastrointestinal: as per Subjective / HPI Musculoskeletal: as per Subjective / HPI Integumentary: as per Subjective / HPI Neurologic: as per Subjective / HPI Psychiatric: as per Subjective / HPI Endocrine: as per Subjective / HPI Hematologic / Lymphatic: as per Subjective / HPI Allergy / Immunological: as per Subjective / HPI Exam (Neuro) Physical Exam: HEENT: normocephalic Neuro: Mental: AOx4, fluent speech, normal comprehension, no apraxia, no L/R confusion, does have double simultagnosia. mild acalculia. no finger agnosia. CN: PERRL, noted for rt homonymous hemianopsia. Full EOM, symmetric face, midline T/U/P, 5/5 SCM/traps. Motor: No abnormal movements, normal tone and bulk, 5/5 t/o bilaterally Sens: intact to touch b/l grossly Coord: intact FNT b/l DTR: 1+ sym b/l Gait:deferred. Impression: 84 yo female with acute left AIRFREIGHT OPERATIONS AGENT distribution ischemic stroke with high grade left P1 stenosis and homonymous hemianopsia in setting of atrial fib, not on anticoagulation. Pt also with UTI. Recommendations: 1. Standard stroke work up as planned 2. pt needs to be on anticoagulation. st art pt on eliquis 5mg po bid (pt can be on full dose). once eliquis started, can stop the ASA. 3. Images: echo normal. get left knee DV T ultrasound as pt is complaining of leg cramping up and pain. r/o DVT. 4. Permissive Hypertension for next 24-4 8 hrs. Keep SBP goal range less than 220. Avoid hypotension. Do not stop beta-lee if on it. 5. If noted for large intracranial vesse l stenosis, slow reduction of BP and allowing permissive HTN next 5 days. 6. Long-term SBP goal less than 130. 7. Plenty of hydration including IV flui d if possible (use isotonic solution) next 1-2 days. Avoid hypovolemia and hypotension. 8. Initiate DVT prevention therapy. headache tx with antiemetics and plenty of IVF. avoid triptans. tx UTI. 9. Avoid hypoglycemia, serum glucose goa l during hospitalization: 140-180. 10. Long-term HgA1c goal less than 7. 11. Start statin if not on it and no abs olute contraindication, long-term LDL goal less than 70. 12. Head of bed up 30 degrees if possibl e. 13. Stroke education by nursing and appr opriate staff. 14. Telemetry monitoring. 15. Fall precaution and aspiration preca ution. 16. Consult physical and occupational th erapy and speech path evaluation. Chart reviewed I have spent more than 50% educating patient about potential diagnosis and neurological evaluation and coordinating care with patient's treatment team. Total time spent (including chart review and coordination of care): 60 min (this includes chart review). Results & Data Vital Signs (Past 12 Hours) Vital Signs Pulse Pulse Resp BP BP Pulse Ox O2 Del Method 07/13/24 12:05 158/81 H 07/13/24 11:17 71 07/13/24 11:15 76 19 93 07/13/24 11:09 76 19 92 07/13/24 11:00 163/86 H 07/13/24 10:57 77 17 90 07/13/24 10:39 81 20 95 07/13/24 10:35 163/76 H 07/13/24 10:09 75 18 07/13/24 10:00 169/95 H 07/13/24 10:00 69 21 95 07/13/24 09:56 94 Nasal Cannula 07/13/24 09:42 61 22 95 07/13/24 09:30 163/77 H 07/13/24 09:24 62 16 95 07/13/24 09:09 74 24 95 07/13/24 09:00 158/76 H 07/13/24 08:42 69 23 98 07/13/24 08:30 86 24 94 07/13/24 08:09 77 21 97 07/13/24 08:00 153/74 H 07/13/24 07:24 69 24 96 07/13/24 07:06 79 23 93 07/13/24 07:00 166/81 H 07/13/24 06:06 75 18 07/13/24 05:30 78 16 160/69 H 95 Room Air 07/13/24 05:21 79 17 171/72 H 95 Room Air 07/13/24 04:37 Room Air 07/13/24 04:31 75 17 169/87 H 95 Room Air 07/13/24 04:30 79 18 169/87 H 95 Room Air 07/13/24 04:27 86 O2 Flow Rate 07/13/24 12:05 07/13/24 11:17 07/13/24 11:15 07/13/24 11:09 07/13/24 11:00 07/13/24 10:57 07/13/24 10:39 07/13/24 10:35 07/13/24 10:09 07/13/24 10:00 07/13/24 10:00 07/13/24 09:56 2 07/13/24 09:42 07/13/24 09:30 07/13/24 09:24 07/13/24 09:09 07/13/24 09:00 07/13/24 08:42 07/13/24 08:30 07/13/24 08:09 07/13/24 08:00 07/13/24 07:24 07/13/24 07:06 07/13/24 07:00 07/13/24 06:06 07/13/24 05:30 07/13/24 05:21 07/13/24 04:37 07/13/24 04:31 07/13/24 04:30 07/13/24 04:27 PG Care Time/CCT Total # of Minutes Spent Total Time Spent with Patient: Total time spent is greater than 50% in coordination of care (as documented) at patient's floor/unit and/or counseling patient: Coding Level of Care Code 34290 IN/OBS CONSULT LVL 4,60M Diagnoses Stroke I63.9 CVA mechanism: unspecified (1) Stroke CVA mechanism: unspecified Qualified Code(s): I63.9 - Cerebral infarction, unspecified
[2024-07-13] MEDS: LACTATED RINGER'S 1,000 ML IV SCH (17:27)
[2024-07-13] MEDS ORDERED: oxyCODONE HCL IR 5 MG TAB (IMMEDIATE RELEASE) PO PRN (18:28)
[2024-07-13] MEDS ORDERED: MoRPHine SULFATE 2 MG/ML CARP IV PRN (18:28)
[2024-07-13] MEDS: ACETAMINOPHEN 325 MG TAB PO PRN (18:33)
[2024-07-13 19:12] LABS: ANTI-Xa, UFH(UnfractionatedHep 0.79 IU/ml (0.3-0.7)
[2024-07-13] MEDS: TROLAMINE SALICYLATE 10% CRM 255 APPLN/85 GM TUBE EXT PRN (20:20)
[2024-07-13] MEDS: VERAPAMIL HCL 240 MG TABCR PO SCH (20:21)
[2024-07-14 06:54] LABS: Basophils # (auto) 0.05 K/uL (0.00-0.20); Basophils % (auto) 0.6 %; Eosinophils # (auto) 0.24 K/uL (0.00-0.50); Eosinophils % (auto) 2.7 %; Hematocrit (blood only) 33.9 % (37.0-47.0); Hemoglobin 10.5 g/dl (12.0-16.0); Immature Granulocytes # (auto) 0.04 K/uL (0.01-0.20); Immature Granulocytes % (auto) 0.5 %; Lymphocytes # (auto) 1.53 K/uL (1.20-3.40); Lymphocytes % (auto) 17.5 %; Mean Corpuscular Volume 87.1 fL (80.0-100.0); Mean Platelet Volume 10.7 fL (9.4-12.4); Monocytes # (auto) 0.79 K/uL (0.11-0.59); Neutrophils # (auto) 6.09 K/uL (1.40-6.50); Neutrophils % (auto) 69.7 %; Platelet Count 241 K/uL (130-400); RDW Standard Deviation 47.9 fL (36.4-46.3); Red Blood Count 3.89 M/uL (4.20-5.40); White Blood Count 8.74 K/ul (4.8-10.8)
[2024-07-14 07:18] LABS: BUN Creatinine Ratio 18.3 (10-20); Calcium 9.2 mg/dl (8.6-10.3); Chol HDL Ratio 2.6 (0-5); Creatinine Clr Calc Pharmacy 52.9 ml/min; Est GFR (Non-African American) 77.7 ml/min
--- NOTE | 2024-07-14 07:44 | Hospitalist Progress Note ---
Date of Service July 14, 2024 Assessment & Plan (1) Stroke: Plan: Patient presents with concern for acute thrombus in the left P1 segment. She is given aspirin in the ER consideration for anticoagulation. Neurology consult be undertaken. Patient has no focal neurological deficits she has been having decreased hearing out of her right ear but this predates this event for some time. She still has a frontal headache. She has no focal neurological loss of strength or sensation. She does have some crampiness to her lower extremities. 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 Last cardiology visit, Srinivas Vázquez "Once again patient was strongly encouraged to resume Xarelto 20 mg daily to reduce her risk of stroke associated with A-Fib. Her [id number] score is 5 which corresponds with a 7.2 % yearly stroke risk. Patient is aware that she is at risk for stroke and other thromboembolic phenomena associated with atrial fibrillation." Patient cannot recall this conversation, is started on Eliquis per neurology recommendation (4) Hypothyroidism: Plan: History of Graves' disease taking replacement thyroid dose will be continued Admission and Anticipated Discharge Date Admission Date: July 13, 2024 Results & Data Results & Data Vital Signs (Past 12 Hours) Vital Signs Temp Pulse Resp BP Pulse Ox O2 Del Method O2 Flow Rate 07/14/24 07:00 97.9 F 57 L 16 118/68 97 Nasal Cannula 2 07/14/24 03:35 99.1 F 68 18 128/71 96 Nasal Cannula 1.5 07/13/24 22:00 Nasal Cannula 2 07/13/24 21:57 98.2 F 101 H 16 173/72 H 95 Nasal Cannula 2 07/13/24 20:24 Nasal Cannula 3 07/13/24 20:24 62 148/85 H PG Care Time/CCT Total # of Minutes Spent Total Time Spent with Patient: Total time spent is greater than 50% in coordination of care (as documented) at patient's floor/unit and/or counseling patient: Coding Diagnoses Stroke I63.9 CVA mechanism: unspecified Acute UTI N39.0 Atrial fibrillation, permanent I48.21 Acquired hypothyroidism E03.9 Hypothyroidism type: acquired (1) Stroke CVA mechanism: unspecified Qualified Code(s): I63.9 - Cerebral infarction, unspecified (4) Hypothyroidism Hypothyroidism type: acquired Qualified Code(s): E03.9 - Hypothyroidism, unspecified
[2024-07-14 07:55] LABS: Estimated Average Glucose 114 mg/dl; Hemoglobin A1C 5.6 % (4.5-5.6)
[2024-07-14] MEDS: APIXABAN 2.5 MG TAB PO SCH (08:56)
[2024-07-14] MEDS: ASPIRIN 81 MG ECTAB PO SCH (08:57)
--- NOTE | 2024-07-14 09:15 | Pharmacy Report ---
- Date of Service July 14, 2024 - Pharmacy CVA/TIA Medication Review Medications to Prevent Stroke handout has been added to the patients discharge packet. Antiplatelet(s) * Aspirin 81mg po daily to be continued per Dr. Mcneill Cholesterol * High intensity statin: atorvastatin 40 mg daily DVT Prophylaxis * Therapeutic anticoag with eliquis Therapeutic Anticoagulation * Hx Afib/Aflutter noted, and patient is currently receiving eliquis 2.5mg bid (dose reduced for age > 80 and weight < 60kg) Type 2 Diabetes * Patient does not have T2DM
--- NOTE | 2024-07-14 09:34 | Neurology Progress Note ---
Date of Service July 14, 2024 Assessment & Plan (1) Stroke: Admission and Anticipated Discharge Date Admission Date: July 13, 2024 Subjective pt doing well. no new deficits. Results & Data Vital Signs (Past 12 Hours) Vital Signs Temp Pulse Pulse Resp BP Pulse Ox O2 Del Method 07/14/24 08:57 63 07/14/24 07:00 36.6 C 57 L 16 118/68 97 Nasal Cannula 07/14/24 03:35 37.3 C 68 18 128/71 96 Nasal Cannula 07/13/24 22:00 Nasal Cannula 07/13/24 21:57 36.8 C 101 H 16 173/72 H 95 Nasal Cannula O2 Flow Rate 07/14/24 08:57 07/14/24 07:00 2 07/14/24 03:35 1.5 07/13/24 22:00 2 07/13/24 21:57 2 Exam (Neuro) Physical Exam: Neuro: Mental: AOx4, fluent speech, normal comprehension, no apraxia, occasional L/R confusion, does have double simultagnosia. mild acalculia. no finger agnosia. CN: PERRL, noted for rt homonymous hemianopsia. Full EOM, symmetric face, Motor: No abnormal movements, normal tone and bulk, 5/5 t/o bilaterally Gait:intact. Impression: 84 yo female with acute left FUEL BUYER distribution ischemic stroke with high grade left P1 stenosis and homonymous hemianopsia in setting of atrial fib and chronic UTI. Overall stable and doing well. Recommendations: continue current stroke care as now. pt now on anticoag therapy. pt again asking me about left knee pain/cramp. consider getting DVT evaluation. no new recommendations. Chart reviewed I have spent more than 50% educating patient about potential diagnosis and neurological evaluation and coordinating care with patient's treatment team. Total time spent (including chart review and coordination of care): 35 min (this includes chart review). PG Care Time/CCT Total # of Minutes Spent Total Time Spent with Patient: Total time spent is greater than 50% in coordination of care (as documented) at patient's floor/unit and/or counseling patient: Coding Level of Care Code 24608 SUB INP/OBS CARE 2/35MIN Diagnoses Stroke I63.9 CVA mechanism: unspecified (1) Stroke CVA mechanism: unspecified Qualified Code(s): I63.9 - Cerebral infarction, unspecified
[2024-07-14 11:23] VITALS: TEMP 97.7
[2024-07-14 12:11] LABS: iSTAT Creatinine 0.7 mg/dl (0.6-1.3); iSTAT Hemoglobin 12.2 g/dl (12.0-16.0); iSTAT Ionized Calcium 1.27 mmol/l (1.12-1.32); iSTAT Potassium 3.6 mmol/L (3.3-5.0)
[2024-07-14 15:03] VITALS: BP 118/67; PULSE 62; RESP 19; O2SAT 97
--- NOTE | 2024-07-14 15:44 | Communication Note ---
Date of Service: July 14, 2024 By CMS guidelines, a determination that the admission or continued stay is not medically necessary has been made by a member of the UR committee and a physician for this hospital stay, therefore a Code 44 will be completed and the Inpatient admission will be changed to outpatient.
--- NOTE | 2024-07-14 15:46 | Discharge Summary ---
Discharge Summary Date of Service July 14, 2024 Principal Dx & Hospital Course #1 = Principal Diagnosis (1) Stroke: Patient presents with concern for acute thrombus in the left P1 segment. She is given aspirin in the ER consideration for anticoagulation. Neurology consult be undertaken. Patient has no focal neurological deficits she has been having decreased hearing out of her right ear but this predates this event for some time. She still has a frontal headache. She has no focal neurological loss of strength or sensation. She does have some crampiness to her lower extremities. 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 Last cardiology visit, Srinivas Vázquez "Once again patient was strongly encouraged to resume Xarelto 20 mg daily to reduce her risk of stroke associated with A-Fib. Her [id number] score is 5 which corresponds with a 7.2 % yearly stroke risk. Patient is aware that she is at risk for stroke and other thromboembolic phenomena associated with atrial fibrillation." Patient cannot recall this conversation, is started on Eliquis per neurology recommendation (4) Hypothyroidism: History of Graves' disease taking replacement thyroid dose will be continued Notes For Next Care Provider Strep UTI will discharge on Ceftin Admission HPI Per Admitting Provider 84-year-old female presents emergency department reporting that she woke up 2 hours prior to presentation due to a headache. She denies any falls or traumas. Denies any fevers. No nausea or vomiting. Stroke alert was not ca lled by ER due to last time known well being unknown since she woke up with headache. There is concern on CT head of a high grade stenosis of the Left P1 segment with diminished enhancement of the distal vessel concerning for a acute thrombus the patient appeared well nourished and normally developed. Patient given aspirin Patient noted to have a normal urinalysis started on ciprofloxacin Patient has no new symptoms with exception of hearing loss out of her right ear. This predates her symptoms by weeks. She previously has had issues with allergies. Discharge Exam Awake and alert having issues with memory problems and some right-sided weakness. 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 UTI Activity: Per Instructions section Activity Comment: per Rehab Non-emergency contact: Primary Care Provider and Specialist Call non-emergency contact if: your symptoms worsen Follow-up/Referrals: Aaron Thornton DO [Primary Care Provider] - Diet: Heart Healthy Addtl Attending Provider Instructions: Neurology recommended anticoagulation without antiplatelet agent statin complete treatment for uti poa pt with right ear clear effusion behind TM trial of zyrtec Pending Studies at Discharge: No Stand-Alone Forms: Treventis, Medications to Prevent Stroke Skilled Items Patient informed of condition?: Yes DNR: No Discharge Level of Care: Acute rehab Communicable Disease: No Discharge Prognosis: Stable Lines: None Urinary Catheter: No Medications and DC Order Prescriptions: New atorvastatin 40 mg Tablet 40 mg PO QAM Qty: 30 0RF Eliquis 2.5 mg Tablet 2.5 mg PO BID Qty: 60 0RF trolamine salicylate [Myoflex] 10 % Cream 1 applic EXT BID PRN (Reason: muscle pain) Qty: 1 0RF cetirizine [Zyrtec] 10 mg tablet 10 mg PO DAILY PRN (Reason: allergy symptoms) Qty: 30 0RF cefdinir 300 mg capsule 300 mg PO BID 5 Days Qty: 10 0RF Continued thyroid (pork) [[place] Thyroid] 90 mg tablet 90 mg PO DAILY Qty: 90 3RF omega-3 fatty acids 500 mg capsule 500 mg PO DAILY vitamin A 8,000 unit capsule 8,000 units PO DAILY Rx Instructions: otc unable to verify vitamin E 600 unit capsule 600 units PO DAILY coenzyme Q10 400 mg capsule 400 mg PO DAILY Rx Instructions: otc unable to verify ascorbic acid (vitamin C) 500 mg tablet 500 mg PO DAILY cholecalciferol (vitamin D3) 1 cap PO DAILY Rx Instructions: otc unknown dose magnesium 1 tab PO DAILY Rx Instructions: otc unable to verify digoxin 125 mcg (0.125 mg) tablet 125 mcg PO DAILY Qty: 90 3RF folic acid 400 mcg tablet 400 mcg PO DAILY estradiol 0.01 % (0.1 mg/gram) cream 1 g vaginal 2XWK Qty: 42.5 3RF Rx Instructions: Insert 1/4 applicatorful vaginally 2 time a week. estriol/progesterone 1 ml topical DIRECTED Rx Instructions: 1 mL topical; 23 days per month Changed verapamil 120 mg capsule,ext rel. pellets 24 hr 120 mg PO UD Qty: 0 0RF Rx Instructions: Take 1 capsule by mouth each morning, take 2 tablets by mouth each evening Discharge Orders: Discharge Order (Routine); Ordered 07/14/24 Ordered By: Tyler Mcneill Admission Data Admit Date/Time: 07/13/24 07:34 Attending Provider: Tyler Mcneill Admit Provider: Tyler Mcneill Primary Care Provider: Aaron Thornton Other Providers: Roderick Rodrigez; Cruz Carbone; [facility] Hospital Stay Data Consultations 07/13/24 06:30 ED Decision to Admit Stat 07/13/24 09:52 Consult Neurology Routine Diagnostic Imagining Performed 07/13/24 04:37 CT angio head w con Stat CT angio neck with con Stat CT head/brain wo con Stat 07/13/24 09:52 MR brain wo con Routine Pending Results Patient Have Any Pending Studies at Discharge: No Discharge Instructions Given to Patient (Per Discharging Provider) Neurology recommended anticoagulation without antiplatelet agent statin complete treatment for uti poa pt with right ear clear effusion behind TM trial of zyrtec Total Time Total Time Spent Total Time Spent (In Minutes): It required greater than 30 minutes to prepare this patient for discharge. Coding Level of Care Code 68326 INP/OBS DISCH >30 MIN Diagnoses Stroke I63.9 CVA mechanism: unspecified Acute UTI N39.0 Atrial fibrillation, permanent I48.21 Acquired hypothyroidism E03.9 Hypothyroidism type: acquired
[2024-07-14] MEDS ORDERED: STROKE PATIENT DISCHARGE STA (15:48)
--- NOTE | 2024-07-14 15:52 | Communication Note ---
Date of Service: July 14, 2024 By CMS guidelines, a determination that the admission or continued stay is not medically necessary has been made by a member of the UR committee and a physician for this hospital stay, therefore a Code 44 will be completed and the Inpatient admission will be changed to outpatient. Richardson Moy MD Member, Utilization Review Committee
--- NOTE | 2024-07-15 06:00 | Electrocardiogram Report ---
Test Reason : Blood Pressure : */* mmHG Vent. Rate : 71 BPM Atrial Rate : * BPM P-R Int : * ms QRS Dur : 90 ms QT Int : 400 ms P-R-T Axes : * -13 168 degrees QTcB Int : 434 ms Atrial fibrillation Abnormal ECG When compared with ECG of 25-Jan-2021 06:28, No significant change Confirmed by Ortiz Stokes ([id number]) on 07/15/2024 6:00:32 AM Referred By: Confirmed By: Ortiz Stokes
--- NOTE | 2024-07-15 06:08 | Electrocardiogram Report ---
Test Reason : Blood Pressure : */* mmHG Vent. Rate : 75 BPM Atrial Rate : * BPM P-R Int : * ms QRS Dur : 92 ms QT Int : 338 ms P-R-T Axes : * -10 174 degrees QTcB Int : 377 ms Atrial fibrillation Abnormal ECG When compared with ECG of 13-Jul-2024 04:43, (unconfirmed) T wave inversion more evident in Lateral leads QT has shortened Confirmed by Ortiz Stokes ([id number]) on 07/15/2024 6:08:31 AM Referred By: REFERRED SELF Confirmed By: Ortiz Stokes
== END 2024-07-14 17:31 ==
LOC: SUATTDRO → ED 04:26 → EDINP 07:34 → INTOOBSV 07:34 → 2S 09:53